=== PATIENT | male | born 1935 | race Caucasian/White ===

== ENCOUNTER 2016-11-04 08:21 | Emergency (ER) | payer MEDICARE, BC ==
[2016-11-04 08:31] VITALS: BP 164/93; PULSE 69; RESP 18; TEMP 98
[2016-11-04] MEDS ORDERED: HYDROcodone/APAP 5-325MG 1 EACH TAB PO STA (08:39)
--- NOTE | 2016-11-04 08:47 | ED ---
Extremity Problem HPI - General Chief complaint: Extremity Problem,Nontraumatic Stated complaint: toenail pain Time Seen by Provider: 11/04/16 08:32 Source: patient Mode of arrival: ambulatory Limitations: no limitations - History of Present Illness Initial comments: 81-year-old male presents emergency Department with chief complaint of left foot , toe pain. Patient states that he woke up yesterday with her worse today. Patient states it's red and swollen. Patient denies any fever, chills. Denies any trauma. Patient states he's had similar symptoms like the past but on away. Patient believes he has gout. Patient also states that his nail are having overgrowth. Patient states that he needs to see someone for this. Patient denies any other complaints. Patient denies kidney dysfunction. - Related Data Home Medications Medication Instructions Recorded Confirmed Citalopram Hydrobromide [CeleXA] 10 mg PO DAILY 03/27/16 11/04/16 Previous Rx's Medication Instructions Recorded Lisinopril [Zestril] 10 mg PO DAILY #30 tab 02/16/15 Lisinopril [Zestril] 5 mg PO DAILY #14 tab 08/24/16 Colchicine [Colcrys] 0 mg PO DIRECTED #3 tablet 11/04/16 Hydrocodone/Acetaminophen [[place] 1 tab PO Q6HR PRN #15 tab 11/04/16 5-325] Indomethacin [Indocin] 50 mg PO TID PRN #30 capsule 11/04/16 Allergies Allergy/AdvReac Type Severity Reaction Status Date / Time No Known Allergies Allergy Verified 11/04/16 08:31 Review of Systems ROS Statement: Those systems with pertinent positive or pertinent negative responses have been documented in the HPI. ROS Other: All systems not noted in ROS Statement are negative. Past Medical History Past Medical History: Hyperlipidemia, Renal Disease History of Any Multi-Drug Resistant Organisms: None Reported Past Surgical History: No Surgical Hx Reported Past Psychological History: No Psychological Hx Reported Smoking Status: Never smoker Past Alcohol Use History: None Reported Past Drug Use History: None Reported General Exam Limitations: no limitations General appearance: alert, in no apparent distress Head exam: Present: atraumatic, normocephalic, normal inspection Respiratory exam: Present: normal lung sounds bilaterally. Absent: respiratory distress, wheezes, rales, rhonchi, stridor Cardiovascular Exam: Present: regular rate, normal rhythm, normal heart sounds. Absent: systolic murmur, diastolic murmur, rubs, gallop, clicks Extremities exam: Present: other (There is overgrowth of the nail noted consistent with onychomycosis on the first digit of both feet, there is mild erythema at the first MTP with tenderness no other rashes.) Course Vital Signs 11/04/16 08:27 Temperature 98 F Pulse Rate 69 Respiratory 18 Rate Blood Pressure 164/93 O2 Sat by Pulse 98 Oximetry Medical Decision Making - Medical Decision Making 9-year-old male presented for foot pain. Patient has classic gout. Patient has had a rhythm past. Patient also has onychomycosis. Patient referred to podiatry for this. Disposition Clinical Impression: Gout, Onychomycosis Disposition: HOME SELF-CARE Condition: Stable Instructions: Gout (ED), Low Purine Diet (ED) Additional Instructions: Please return to the Emergency Department if symptoms worsen or any other concerns. Prescriptions: Colchicine [Colcrys] 0 mg PO DIRECTED #3 tablet Hydrocodone/Acetaminophen [[place] 5-325] 1 tab PO Q6HR PRN #15 tab PRN Reason: Pain Indomethacin [Indocin] 50 mg PO TID PRN #30 capsule PRN Reason: Pain Referrals: Ash Manrique MD [Primary Care Provider] - 1-2 days Mitch Lucas MD [REFERRING] - 1-2 days Phong Luna DPM [STAFF PHYSICIAN] - 1-2 days Time of Disposition: 08:46
== END 2016-11-04 09:10 | disposition home or self-care (01) ==
LOC: EC 08:21
DX: M10.9 Gout, unspecified (principal); B35.1 Tinea unguium; E78.5 Hyperlipidemia, unspecified; Z79.899 Other long term (current) drug therapy
CPT/HCPCS: 99282

== ENCOUNTER 2021-06-23 12:10 | Inpatient (IN) | payer MEDICARE, BC ==
[2021-06-23] MEDS ORDERED: NITROGLYCERIN OINT 1 INCH/GM PACKET TOPICAL STA (12:43)
[2021-06-23] MEDS ORDERED: ASPIRIN 81 MG PO STA (12:43)
--- NOTE | 2021-06-23 12:57 | ED ---
General Adult HPI - General Chief complaint: Chest Pain Stated complaint: abn EKG Time Seen by Provider: 06/23/21 12:30 Source: patient, RN notes reviewed, old records reviewed Mode of arrival: ambulatory Limitations: no limitations - History of Present Illness Initial comments: This is a 86-year-old male who presents emergency Department complaining of a weird sensation in his chest on the left side. Patient states been ongoing intermittently for a week. Patient denies any difficulty breathing shortness of breath per patient denies any diaphoretic episodes. Patient denies any lightheadedness or dizziness. Patient states he's a little more tired when he walks around. Patient denies any abdominal pain patient denies nausea vomiting diarrhea. Patient denies any swelling to legs or calf tenderness. Patient went to the primary medical care doctor's office they sent him in the emergency department. - Related Data Home Medications Medication Instructions Recorded Confirmed Atorvastatin [Lipitor] 20 mg PO HS 06/23/21 06/23/21 Citalopram Hydrobromide [CeleXA] 20 mg PO DAILY 06/23/21 06/23/21 Tamsulosin [Flomax] 0.4 mg PO HS 06/23/21 06/23/21 lisinopriL 20 mg PO HS 06/23/21 06/23/21 Allergies Allergy/AdvReac Type Severity Reaction Status Date / Time No Known Allergies Allergy Verified 06/23/21 14:12 Review of Systems ROS Statement: Those systems with pertinent positive or pertinent negative responses have been documented in the HPI. ROS Other: All systems not noted in ROS Statement are negative. Past Medical History Past Medical History: Hyperlipidemia, Renal Disease History of Any Multi-Drug Resistant Organisms: None Reported Past Surgical History: No Surgical Hx Reported Past Psychological History: No Psychological Hx Reported Smoking Status: Former smoker Past Alcohol Use History: Occasional Past Drug Use History: None Reported General Exam - General Exam Comments Initial Comments: GENERAL: Patient is well-developed and well-nourished. Patient is nontoxic and well- hydrated and is in mild distress. ENT: Neck is soft and supple. No significant lymphadenopathy is noted. Oropharynx is clear. Moist mucous membranes. Neck has full range of motion without eliciting any pain. EYES: The sclera were anicteric and conjunctiva were pink and moist. Extraocular movements were intact and pupils were equal round and reactive to light. Eyelids were unremarkable. PULMONARY: Unlabored respirations. Good breath sounds bilaterally. No audible rales rhonchi or wheezing was noted. CARDIOVASCULAR: Patient has no irregular heartbeat. ABDOMEN: Soft and nontender with normal bowel sounds. SKIN: Skin is clear with no lesions or rashes and otherwise unremarkable. NEUROLOGIC: Patient is alert and oriented x3. Cranial nerves II through XII are grossly intact. Motor and sensory are also intact. Normal speech, volume and content. Symmetrical smile. MUSCULOSKELETAL: Normal extremities with adequate strength and full range of motion. No lower extremity swelling or edema. No calf tenderness. LYMPHATICS: No significant lymphadenopathy is noted PSYCHIATRIC: Normal psychiatric evaluation. Limitations: no limitations Course Vital Signs 06/23/21 06/23/21 06/23/21 12:27 13:57 14:17 Temperature 97.3 F L Pulse Rate 82 53 L 90 Respiratory 18 18 17 Rate Blood Pressure 165/112 177/110 173/99 O2 Sat by Pulse 96 99 99 Oximetry Medical Decision Making - Medical Decision Making EKG shows atrial fibrillation 71 bpm QRS is 80 QT interval 378 QTC is 410. Patient's EKG shows no ST segment elevation. Patient has Q waves in 3 and aVF. Patient has some inverted T waves in precordial leads V2 through the V6 Chest x-ray shows no acute normalities. Patient received 10 of hydralazine for high blood pressure. I started the patient heparin for the new onset A. fib. - Lab Data Result diagrams: 06/23/21 13:27 06/23/21 13:27 Lab Results 06/23/21 06/23/21 06/23/21 Range/Units 13:27 13:27 13:27 WBC 6.0 (3.8-10.6) k/uL RBC 4.24 L (4.30-5.90) m/uL Hgb 14.7 (13.0-17.5) gm/dL Hct 41.2 (39.0-53.0) % MCV 97.2 (80.0-100.0) fL MCH 34.5 (25.0-35.0) pg MCHC 35.5 (31.0-37.0) g/dL RDW 13.4 (11.5-15.5) % Plt Count 211 (150-450) k/uL MPV 7.4 Neutrophils % 60 % Lymphocytes % 28 % Monocytes % 6 % Eosinophils % 3 % Basophils % 0 % Neutrophils # 3.6 (1.3-7.7) k/uL Lymphocytes # 1.7 (1.0-4.8) k/uL Monocytes # 0.3 (0-1.0) k/uL Eosinophils # 0.2 (0-0.7) k/uL Basophils # 0.0 (0-0.2) k/uL PT 12.0 (9.0-12.0) sec INR 1.2 H (<1.2) APTT 24.4 (22.0-30.0) sec Sodium 142 (137-145) mmol/L Potassium 4.5 (3.5-5.1) mmol/L Chloride 111 H (98-107) mmol/L Carbon Dioxide 23 (22-30) mmol/L Anion Gap 8 mmol/L BUN 26 H (9-20) mg/dL Creatinine 1.42 H (0.66-1.25) mg/dL Est GFR (CKD-EPI)AfAm 52 (>60 ml/min/1.73 sqM) Est GFR (CKD-EPI)NonAf 45 (>60 ml/min/1.73 sqM) Glucose 98 (74-99) mg/dL Calcium 9.5 (8.4-10.2) mg/dL Magnesium 1.9 (1.6-2.3) mg/dL Total Bilirubin 0.8 (0.2-1.3) mg/dL AST 25 (17-59) U/L ALT 21 (4-49) U/L Alkaline Phosphatase 89 (38-126) U/L Troponin I (0.000-0.034) ng/mL Total Protein 6.8 (6.3-8.2) g/dL Albumin 3.9 (3.5-5.0) g/dL Coronavirus (PCR) (Not Detectd) 06/23/21 06/23/21 Range/Units 13:27 13:27 WBC (3.8-10.6) k/uL RBC (4.30-5.90) m/uL Hgb (13.0-17.5) gm/dL Hct (39.0-53.0) % MCV (80.0-100.0) fL MCH (25.0-35.0) pg MCHC (31.0-37.0) g/dL RDW (11.5-15.5) % Plt Count (150-450) k/uL MPV Neutrophils % % Lymphocytes % % Monocytes % % Eosinophils % % Basophils % % Neutrophils # (1.3-7.7) k/uL Lymphocytes # (1.0-4.8) k/uL Monocytes # (0-1.0) k/uL Eosinophils # (0-0.7) k/uL Basophils # (0-0.2) k/uL PT (9.0-12.0) sec INR (<1.2) APTT (22.0-30.0) sec Sodium (137-145) mmol/L Potassium (3.5-5.1) mmol/L Chloride (98-107) mmol/L Carbon Dioxide (22-30) mmol/L Anion Gap mmol/L BUN (9-20) mg/dL Creatinine (0.66-1.25) mg/dL Est GFR (CKD-EPI)AfAm (>60 ml/min/1.73 sqM) Est GFR (CKD-EPI)NonAf (>60 ml/min/1.73 sqM) Glucose (74-99) mg/dL Calcium (8.4-10.2) mg/dL Magnesium (1.6-2.3) mg/dL Total Bilirubin (0.2-1.3) mg/dL AST (17-59) U/L ALT (4-49) U/L Alkaline Phosphatase (38-126) U/L Troponin I <0.012 (0.000-0.034) ng/mL Total Protein (6.3-8.2) g/dL Albumin (3.5-5.0) g/dL Coronavirus (PCR) Not Detected (Not Detectd) Critical Care Time Critical Care Time: Yes Total Critical Care Time: 35 Disposition Clinical Impression: Hypertensive urgency, New onset a-fib Disposition: ADMITTED IP TO THIS HOSP Referrals: Markel Anaya [Primary Care Provider] - 1-2 days Time of Disposition: 14:18
--- NOTE | 2021-06-23 13:24 | XR ---
EXAMINATION TYPE: XR chest 2V DATE OF EXAM: 06/23/2021 COMPARISON: Chest x-ray January 27, 2015 HISTORY: Chest pain. TECHNIQUE: Frontal and lateral views of the chest are obtained. FINDINGS: Elevation and eventration anterior aspect right hemidiaphragm. There is no suspicious new f ocal air space opacity, pleural effusion, or pneumothorax seen. The cardiac silhouette size is stabl e and within normal limits with atherosclerotic and ectatic aortic knob. Nonspecific right paratrach eal soft tissue thickening redemonstrated and stable. Differential includes goiter. Over six-year sta bility is consistent with benign etiology. The osseous structures are demineralized. Degenerative katelyn nge bilateral glenohumeral joints redemonstrated. IMPRESSION: Chronic changes without acute pulmonary process. No significant change from prior.
[2021-06-23 13:52] LABS: Basophils % (A) 0 %; Eosinophils # (A) 0.2 k/uL (0-0.7); Eosinophils % (A) 3 %; HCT 41.2 % (39.0-53.0); HGB 14.7 gm/dL (13.0-17.5); Lymphocytes # (A) 1.7 k/uL (1.0-4.8); Lymphocytes % (A) 28 %; MCH 34.5 pg (25.0-35.0); MCHC 35.5 g/dL (31.0-37.0); MCV 97.2 fL (80.0-100.0); Mean Platelet Volume 7.4; Monocytes # (A) 0.3 k/uL (0-1.0); Monocytes % (A) 6 %; Neutrophils # (A) 3.6 k/uL (1.3-7.7); Neutrophils % (A) 60 %; Platelet Count 211 k/uL (150-450); RBC 4.24 m/uL (4.30-5.90); RDW 13.4 % (11.5-15.5)
[2021-06-23 14:00] LABS: INR 1.2 (<1.2); Partial Thromboplastin Time 24.4 sec (22.0-30.0)
[2021-06-23 14:07] LABS: Albumin 3.9 g/dL (3.5-5.0); Calcium 9.5 mg/dL (8.4-10.2); Magnesium 1.9 mg/dL (1.6-2.3); Potassium 4.5 mmol/L (3.5-5.1); Total Bilirubin 0.8 mg/dL (0.2-1.3); Total Protein 6.8 g/dL (6.3-8.2)
[2021-06-23] MEDS ORDERED: HEPARIN SODIUM 1,000 UN/ML (10ML VL) IV ONE (14:12)
[2021-06-23] MEDS ORDERED: hydrALAZINE HCL 20 MG/ML 1 ML VIAL IVP STA (14:17)
[2021-06-23] MEDS ORDERED: NITROGLYCERIN SL TABS 0.4 MG TAB SUBLINGUAL PRN (14:20)
[2021-06-23] MEDS: HEPARIN SOD,PORK IN 0.45% NACL 25,000 UNIT in 0.45% NACL 1 250ML.BAG IV SCH (14:48)
--- NOTE | 2021-06-23 16:22 | P.HPIM ---
<Dany Chauhan - Last Filed: 06/23/21 15:53> History of Present Illness H&P Date: 06/23/21 History of Presenting Illness: Patient is an 86-year-old male with a past medical history of hypertension, hyperlipidemia, CKD and BPH. He presented to the hospital with a chief complaint of a "weird feeling" in his chest. Patient was seen and fully evaluated in the emergency department. EKG was completed revealing atrial fibrillation with a controlled ventricular rate of 71 bpm. Labs completed with CBC unremarkable, BMP consistent with stage IIIc daily with BUN 26, creatinine 1.42, and GFR 45. Liver profile unremarkable. Troponin normal findings at less than 0.012. Covid PCR negative. Chest x-ray showing chronic changes and negative for acute cardiac pulmonary process. Patient did have reported nonspecific right paratracheal soft tissue thickening redemonstrated as stable seen on previous examinations over the past 6 years reported to be consistent with benign etiology. After finding patient to be in new onset atrial fibrillation with a controlled ventricular rate. He was started on anticoagulation with heparin and is being admitted under our services with consultation to cardiology. Physical examination completed at bedside. Patient reports intermittent episodes of this weird feeling described as almost a pain/discomfort being felt to left chest intermittently throughout the past couple weeks. He states everything else has been okay and denied having any headache, lightheadedness, dizziness, palpitations, shortness of breath, abdo juanjose pain, changes in appetite, nausea, vomiting, or experiencing any numbness/tingling/weakness/swelling in his extremities. When asked about dyspnea with exertion patient initially denied however when discussed further he did report feeling much more fatigued and needing to take more breaks over the past few days and noticing difficulty when going up his basement steps and needing to sit down to take a rest and catch his breath. Patient denies ever being diagnosed with atrial fibrillation and denies having a applications analyst. Review of systems: Pertinent positives and negatives as discussed in HPI, a complete review of systems was performed and all other systems are negative. Physical exam: Vital signs reviewed and stable. General: Nontoxic, no distress and appears stated age. Derm: Skin warm and dry, normal coloration for ethnicity. Head: Atraumatic, normocephalic and symmetric. Eyes: EOMs intact, no lid lag, and anicteric sclera Mouth: no lip lesions, mucus membranes moist Cardiovascular: Irregular rhythm, no murmur or rub, positive posterior tibial pulses bilaterally, no edema and cap refill < 2 seconds. Lungs: Respirations even, regular, and unlabored on room air. Lungs CTA bilaterally, no rhonchi, no rales, no wheezing, and no accessory muscle usage. Abdominal: soft, nontender to palpation, no guarding, no appreciable organomegaly Ext: ROM intact. No gross muscle atrophy, no edema, no contractures Neuro: Speech clear, face symmetrical and CN II-XII grossly intact with no noted focal neuro deficits Psych: Alert and oriented to person, place, time, and situation. Appropriate and pleasant affect. Assessment and Plan of Care: Newly diagnosed atrial fibrillation with a controlled ventricular rate -[id number] score 2 -Continuation of heparin infusion, pharmacy to dose with plans to transition to oral anticoagulation tomorrow a.m. -Cardiology consult -Echocardiogram -Telemetry monitoring -Trend troponins -Cardiac diet -Daily aspirin and atorvastatin. Hypertension Monitor vital signs and continue daily medication regimen with lisinopril Hyperlipidemia Continue daily medication regimen with atorvastatin Cardiac diet BPH Continue daily medication regimen with Flomax CKD stage III, stable -BMP consistent with stage IIIc daily with BUN 26, creatinine 1.42, and GFR 45. Baseline creatinine 1.5. The patient is admitted with an anticipated greater than 2 midnight stay for evaluation of new onset atrial fibrillation CODE STATUS: Full code DVT prophylaxis: Heparin Discussed with: Patient Anticipated discharge date: Likely 1-[address]: Home A total of 45 minutes was spent on the care of this complex patient more than 50% of the time was spent in counseling and care coordination. Past Medical History Past Medical History: Hyperlipidemia, Renal Disease History of Any Multi-Drug Resistant Organisms: None Reported Past Surgical History: No Surgical Hx Reported Past Psychological History: No Psychological Hx Reported Smoking Status: Former smoker Past Alcohol Use History: Occasional Past Drug Use History: None Reported Medications and Allergies Home Medications Medication Instructions Recorded Confirmed Type Atorvastatin [Lipitor] 20 mg PO HS 06/23/21 06/23/21 History Citalopram Hydrobromide [CeleXA] 20 mg PO DAILY 06/23/21 06/23/21 History Tamsulosin [Flomax] 0.4 mg PO HS 06/23/21 06/23/21 History lisinopriL 20 mg PO HS 06/23/21 06/23/21 History Apixaban [Eliquis Starter Pack 5 - 10 mg PO DIRECTED 30 Days 06/24/21 Rx (for VTE)] #1 each Allergies Allergy/AdvReac Type Severity Reaction Status Date / Time No Known Allergies Allergy Verified 06/23/21 14:12 Physical Exam Vitals: Vital Signs Temp Pulse Resp BP Pulse Ox 06/23/21 14:52 92 18 123/104 99 06/23/21 14:17 90 17 173/99 99 06/23/21 13:57 53 L 18 177/110 99 06/23/21 12:27 97.3 F L 82 18 165/112 96 Intake and Output 06/23/21 06/23/21 06/23/21 06:59 14:59 22:59 Other: Weight 90.718 kg Results CBC & Chem 7: 06/23/21 13:27 06/23/21 13:27 Labs: Abnormal Lab Results - Last 24 Hours (Table) 06/23/21 06/23/21 06/23/21 Range/Units 13:27 13:27 13:27 RBC 4.24 L (4.30-5.90) m/uL INR 1.2 H (<1.2) Chloride 111 H (98-107) mmol/L BUN 26 H (9-20) mg/dL Creatinine 1.42 H (0.66-1.25) mg/dL <Dayton Chase - Last Filed: 06/24/21 15:12> Physical Exam Osteopathic Statement: *. No significant issues noted on an osteopathic structural exam other than those noted in the History and Physical/Consult. Vitals: Vital Signs Temp Pulse Resp BP Pulse Ox 06/24/21 14:25 67 20 143/67 97 06/24/21 11:21 67 20 141/90 06/24/21 11:00 77 18 98 06/24/21 10:00 62 18 98 06/24/21 09:00 75 18 98 06/24/21 08:00 97.5 F L 75 20 149/92 98 06/24/21 02:57 97.5 F L 66 20 160/92 98 06/23/21 21:38 59 L 18 130/85 99 06/23/21 20:56 56 L 142/84 99 06/23/21 17:46 56 L 17 134/87 97 Intake and Output 06/24/21 06/24/21 06/24/21 06:59 14:59 22:59 Intake Total 141.702 Balance 141.702 Intake: Intake, IV Titration 141.702 Amount Heparin Sod,Pork in 0.45% 141.702 NaCl 25,000 unit In 0.45 % NaCl 1 250ml.bag @ 11 UNITS/KG/HR 9.979 mls/hr IV .Q24H [facility] Rx#: [id number] Results CBC & Chem 7: 06/24/21 03:28 06/24/21 03:28 Labs: Abnormal Lab Results - Last 24 Hours (Table) 06/23/21 06/24/21 06/24/21 Range/Units 20:59 03:28 03:28 RBC 3.87 L (4.30-5.90) m/uL Hct 38.1 L (39.0-53.0) % PT 12.8 H (9.0-12.0) sec INR 1.2 H (<1.2) APTT (22.0-30.0) sec Chloride 113 H (98-107) mmol/L Carbon Dioxide 20 L (22-30) mmol/L BUN 22 H (9-20) mg/dL Creatinine 1.37 H (0.66-1.25) mg/dL 06/24/21 06/24/21 Range/Units 03:28 11:33 RBC (4.30-5.90) m/uL Hct (39.0-53.0) % PT (9.0-12.0) sec INR (<1.2) APTT 38.4 H 31.0 H (22.0-30.0) sec Chloride (98-107) mmol/L Carbon Dioxide (22-30) mmol/L BUN (9-20) mg/dL Creatinine (0.66-1.25) mg/dL Assessment and Plan Assessment: Patient seen and examined independently. Patient was also seen by Dany Chauhan NP and case was discussed. I am in agreement with subjective, physical exam, a ssessment and plan as written above and amended below. General: Patient awake alert and oriented x 3. No acute distress. HEENT: Sclerae are clear. Pupils equal, round and reactive to light bilaterally. No cervical adenopathy. No pharyngeal erythema or exudate. No thyromegaly. Lymphatic: No anterior cervical adenopathy. Chest: irregularly irregular, normal rate, positive S1 and S2. No S3. No S4. No clicks, rubs or murmurs. Lungs: Clear to auscultation bilaterally. No wheezes rales or rhonchi. Respirations even and nonlabored. Abdomen/GI: Bowel sounds present in all 4 quadrants. Bowel sounds normoactive. No abdominal tenderness. No mass. No hepatomegaly or splenomegaly. No bruits. : Musculoskeletal/ Extremities: No tenderness on muscular exam. No ecchymosis. Vascular: Radial pulses equal. 2/4. Skin: No rash. Neurologic: Awake, alert and oriented times 3. No lateralizing deficits noted on gross inspection. # New onset Afib -CHADSVasc score of 2 -transition from Heparin drip to Eliquis -rate has been controlled so far, consider beta gibson if needed -f/u on 2D Echo, TSH -stop aspirin unless there is an indication for dual therapy (1) New onset a-fib Current Visit: Yes Status: Acute Priority: High Code(s): I48.91 - UNSPECIFIED ATRIAL FIBRILLATION SNOMED Code(s): 78223423 Time with Patient: Less than 30
--- NOTE | 2021-06-23 17:02 | ECHOF ---
Referral Reason:new onset atrial fib MEASUREMENTS -------- HEIGHT: 175.3 cm WEIGHT: 90.7 kg BP: 157/82 IVSd: 1.2 cm (0.6 - 1.1) LVIDd: 4.1 cm (3.9 - 5.3) LVPWd: 1.1 cm (0.6 - 1.1) IVSs: 1.3 cm LVIDs: 1.9 cm LVPWs: 1.5 cm MV E Willie: 0.74 m/s MV DecT: 199 ms MV A Willie: 0.90 m/s MV E/A Ratio: 0.82 AR PHT: 719 ms RAP: 5.00 mmHg RVSP: 28.61 mmHg FINDINGS -------- Sinus rhythm. This was a technically difficult study with suboptimal views. The left ventricular size is normal. There is mild concentric left ventricular hypertrophy. Overa ll left ventricular systolic function is normal with, an EF between 55 - 60 %. The RV was not well visualized. The left atrium is mildly dilated. The right atrium was not well visualized. xx ml of Lumason was utilized for enhancement of images. Interatrial and interventricular septum intact. There is mild aortic regurgitation. There is no evidence of aortic stenosis. There is trace to mild mitral regurgitation. Mild tricuspid regurgitation present. There is no evidence of pulmonary hypertension. The right v entricular systolic pressure, as measured by Doppler, is 28.61mmHg. The pulmonic valve was not well visualized. The aortic root size is normal. IVC Not well visulized. There is no pericardial effusion. CONCLUSIONS -------- 1. The left ventricular size is normal. 2. There is mild concentric left ventricular hypertrophy. 3. Overall left ventricular systolic function is normal with, an EF between 55 - 60 %. 4. The left atrium is mildly dilated. 5. There is mild aortic regurgitation. 6. There is trace to mild mitral regurgitation. 7. Mild tricuspid regurgitation present. VP SALES: Genna Hester ONOFRE
[2021-06-23 21:16] LABS: INR 1.2 (<1.2); Prothrombin Time 12.8 sec (9.0-12.0)
[2021-06-23] MEDS: ATORVASTATIN 20 MG TAB PO SCH (21:36)
[2021-06-23] MEDS: TAMSULOSIN 0.4 MG CAP.ER.24H PO SCH (21:37)
[2021-06-23] MEDS: lisinopriL 20 MG TAB PO SCH (21:37)
[2021-06-24 04:05] LABS: HCT 38.1 % (39.0-53.0); HGB 13.2 gm/dL (13.0-17.5); MCH 34.2 pg (25.0-35.0); MCHC 34.8 g/dL (31.0-37.0); MCV 98.3 fL (80.0-100.0); Mean Platelet Volume 7.5; Platelet Count 184 k/uL (150-450); RBC 3.87 m/uL (4.30-5.90); RDW 13.6 % (11.5-15.5); WBC 6.2 k/uL (3.8-10.6)
[2021-06-24 04:27] LABS: Calcium 9.1 mg/dL (8.4-10.2); Potassium 4.1 mmol/L (3.5-5.1)
[2021-06-24] MEDS ORDERED: HEPARIN SODIUM 1,000 UN/ML (10ML VL) IV PRN (04:46)
[2021-06-24] MEDS: CITALOPRAM HYDROBROMIDE 20 MG TAB PO SCH (08:45)
[2021-06-24] MEDS ORDERED: ASPIRIN 325 MG TAB PO SCH (09:00)
[2021-06-24 11:15] LABS: Chol/HDL Ratio 2.44 Ratio; HDL Cholesterol 52.1 mg/dL (40.00-60.00); LDL Cholesterol,Calculated 56.9 mg/dL (0.0-131.0); Triglycerides 89.9 mg/dL (0.00-149.00); VLDL Calculation 17.98 mg/dL (5.00-40.00)
--- NOTE | 2021-06-24 14:47 | P.PN ---
Subjective Progress Note Date: 06/24/21 History of Presenting Illness: Patient is an 86-year-old male with a past medical history of hypertension, hyperlipidemia, CKD and BPH. He presented to the hospital with a chief complaint of a "weird feeling" in his chest. Patient was seen and fully evaluated in the emergency department. EKG was completed revealing atrial fibrillation with a controlled ventricular rate of 71 bpm. Labs completed with CBC unremarkable, BMP consistent with stage IIIc daily with BUN 26, creatinine 1.42, and GFR 45. Liver profile unremarkable. Troponin normal findings at less than 0.012. Covid PCR negative. Chest x-ray showing chronic changes and neg ative for acute cardiac pulmonary process. Patient did have reported nonspecific right paratracheal soft tissue thickening redemonstrated as stable seen on previous examinations over the past 6 years reported to be consistent with benign etiology. After finding patient to be in new onset atrial fi brillation with a controlled ventricular rate. He was started on anticoagulation with heparin and is being admitted under our services with consultation to cardiology. Patient denied ever being diagnosed with atrial fibrillation and denied having a hospital superintendent. Physical exam: Patient seen and fully evaluated at the bedside this morning. He was resting comfortably. He denied having any complaints of chest pain, shortness of ajith ath, dizziness, lightheadedness, headache, nausea, vomiting, or experiencing any numbness/tingling/weakness of extremities. He remains in atrial fibrillation with a controlled ventricular rate. Echocardiogram completed showing normal EF between 55 and 60% with no significant valvular abnormalities. Patient transitioned over to oral anticoagulation with Eliquis. Prescription sent to pharmacy for pricing. Vital signs reviewed and stable. General: Nontoxic, no distress and appears stated age. Derm: Skin warm and dry, normal coloration for ethnicity. Head: Atraumatic, normocephalic and symmetric. Eyes: EOMs intact, no lid lag, and anicteric sclera Mouth: no lip lesions, mucus membranes moist Cardiovascular: Irregular rhythm, no murmur or rub, positive posterior tibial pulses bilaterally, no edema and cap refill < 2 seconds. Lungs: Respirations even, regular, and unlabored on room air. Lungs CTA bilaterally, no rhonchi, no rales, no wheezing, and no accessory muscle usage. Abdominal: soft, nontender to palpation, no guarding, no appreciable organomegaly Ext: ROM intact. No gross muscle atrophy, no edema, no contractures Neuro: Speech clear, face symmetrical and CN II-XII grossly intact with no noted focal neuro deficits Psych: Alert and oriented to person, place, time, and situation. Appropriate and pleasant affect. Assessment and Plan of Care: Newly diagnosed atrial fibrillation with a controlled ventricular rate Atypical chest pain -[id number] score 2 -Echocardiogram completed showing normal EF between 55 and 60% with no significant valvular abnormalities. -Heparin discontinued and Patient transitioned over to oral anticoagulation with Eliquis -Cardiology consulted, appreciate recommendations -Telemetry monitoring -Troponin negative. -Cardiac diet -Daily aspirin and atorvastatin. -Lipid profile normal findings. Hypertension Monitor vital signs and continue daily medication regimen with lisinopril Hyperlipidemia Continue daily medication regimen with atorvastatin Cardiac diet BPH Continue daily medication regimen with Flomax CKD stage III, stable CODE STATUS: Full code DVT prophylaxis: Devyn Discussed with: Patient Anticipated discharge date: Likely tomorrow, pending cardiology recommendations. Anticipated discharge place: Home A total of 45 minutes was spent on the care of this complex patient more than 50% of the time was spent in counseling and care coordination. Objective - Vital Signs Vital signs: Vital Signs Temp 97.5 F L 06/24/21 08:00 Pulse 67 06/24/21 11:21 Resp 20 06/24/21 11:21 BP 141/90 06/24/21 11:21 Pulse Ox 98 06/24/21 11:00 Intake & Output 06/23/21 06/24/21 06/24/21 18:59 06:59 18:59 Intake Total 141.702 Balance 141.702 Weight 90.718 kg Intake: Intake, IV Titration 141.702 Amount Heparin Sod,Pork in 0.45% 141.702 NaCl 25,000 unit In 0.45 % NaCl 1 250ml.bag @ 11 UNITS/KG/HR 9.979 mls/hr IV .Q24H CHRISTO Rx#: [id number] - Labs CBC & Chem 7: 06/24/21 03:28 06/24/21 03:28 Labs: Abnormal Lab Results - Last 24 Hours (Table) 06/23/21 06/23/21 06/23/21 Range/Units 13:27 13:27 13:27 RBC 4.24 L (4.30-5.90) m/uL Hct (39.0-53.0) % PT (9.0-12.0) sec INR 1.2 H (<1.2) APTT (22.0-30.0) sec Chloride 111 H (98-107) mmol/L Carbon Dioxide (22-30) mmol/L BUN 26 H (9-20) mg/dL Creatinine 1.42 H (0.66-1.25) mg/dL 06/23/21 06/24/21 06/24/21 Range/Units 20:59 03:28 03:28 RBC 3.87 L (4.30-5.90) m/uL Hct 38.1 L (39.0-53.0) % PT 12.8 H (9.0-12.0) sec INR 1.2 H (<1.2) APTT (22.0-30.0) sec Chloride 113 H (98-107) mmol/L Carbon Dioxide 20 L (22-30) mmol/L BUN 22 H (9-20) mg/dL Creatinine 1.37 H (0.66-1.25) mg/dL 06/24/21 06/24/21 Range/Units 03:28 11:33 RBC (4.30-5.90) m/uL Hct (39.0-53.0) % PT (9.0-12.0) sec INR (<1.2) APTT 38.4 H 31.0 H (22.0-30.0) sec Chloride (98-107) mmol/L Carbon Dioxide (22-30) mmol/L BUN (9-20) mg/dL Creatinine (0.66-1.25) mg/dL
[2021-06-24] MEDS: HEPARIN SOD,PORK IN 0.45% NACL 25,000 UNIT in 0.45% NACL 1 250ML.BAG IV SCH (16:22)
--- NOTE | 2021-06-24 18:42 | CONS ---
CONSULTATION HISTORY: Ermelinda is an 86-year-old elderly gentleman who has been admitted to the hospital with what seems to be a new onset atrial fibrillation. Apparently, he felt very uncomfortable feeling in the left side of his chest, had a burning feeling and annoying sensation and that brought him to the hospital. This has since resolved. He has hypertension, benign prostatic hypertrophy and hyperlipidemia. He also has what seems to be a new onset atrial fibrillation. On arrival EKG revealed atrial fib with a controlled rate and subsequently he has converted to sinus rhythm and goes back and forth. Echo performed yesterday evening revealed normal LV size and systolic function without any significant pulmonary hypertension. Patient is resting comfortably without symptoms. His 2 sets of troponins are normal. His thyroid functions are also within normal limits. He is currently on heparin. PAST MEDICAL HISTORY: Remarkable for hypertension, history of some mild CKD. He has no known drug allergies. MEDICATIONS: Include atorvastatin 20 mg daily, Flomax 0.4 mg daily, lisinopril 20 mg daily, and Celexa. On arrival, patient was hypertensive, but his blood pressure has settled down. He did receive intravenous hydralazine to help control the blood pressure. He is resting comfortably without symptoms. He is in and out of atrial fibrillation but the rate is well controlled. PHYSICAL EXAMINATION: On examination, blood pressure is 140/70 pulse rate is 70 per minute, regular, regular. HEENT unremarkable. Fundus was not examined by me. Neck is supple. There is no JVD. I do not hear a carotid bruit. Heart exam reveals S1, S2 heard normally. There is a short systolic murmur. There is some irregular rhythm. Lungs reveal bilateral decent air entry. Abdomen is soft, nontender. Lower extremities reveal diminished pulses. Central nervous system grossly within normal limits. EKG on arrival revealed atrial fibrillation with controlled ventricular rate, nonspecific ST changes. Subsequently went into sinus rhythm and is going back and forth, but rate is controlled. LAB DATA: Suggests troponins are unremarkable. TSH is normal. D-dimer is normal. IMPRESSION: 1. New onset atrial fibrillation with a controlled ventricular rate. 2. Hypertension. 3. Atypical chest pain. 4. No evidence to suggest any acute myocardial ischemia. 5. Hyperlipidemia. RECOMMENDATIONS: I am recommending Lopressor 12.5 mg b.i.d., Eliquis 5 mg b.i.d., discontinue aspirin. His renal function appears to be fairly acceptable at 1.37. We will consider reducing the dose to 2.5 mg after rechecking renal function, patient is 86 years of age. I discussed my thoughts in detail with the patient, his and son. Thank you very much for the consult. ALIX / PAMELA: [id number] /
[2021-06-24] MEDS: APIXABAN 2.5 MG TABLET PO SCH (19:40)
[2021-06-24] MEDS: ATORVASTATIN 20 MG TAB PO SCH (19:40)
[2021-06-24] MEDS: TAMSULOSIN 0.4 MG CAP.ER.24H PO SCH (19:40)
[2021-06-24] MEDS: lisinopriL 20 MG TAB PO SCH (19:40)
[2021-06-24] MEDS ORDERED: MELATONIN 5 MG TABLET PO PRN (20:44)
[2021-06-24] MEDS ORDERED: APIXABAN 5 MG TAB PO SCH (21:00)
[2021-06-24] MEDS ORDERED: METOPROLOL TARTRATE 12.5 MG TAB PO SCH (21:00)
[2021-06-25 07:22] LABS: HCT 40.2 % (39.0-53.0); HGB 13.5 gm/dL (13.0-17.5); MCHC 33.6 g/dL (31.0-37.0); MCV 98.4 fL (80.0-100.0); Platelet Count 178 k/uL (150-450); RBC 4.09 m/uL (4.30-5.90); RDW 12.9 % (11.5-15.5); WBC 5.9 k/uL (3.8-10.6)
[2021-06-25] MEDS: APIXABAN 2.5 MG TABLET PO SCH (07:47)
[2021-06-25] MEDS: CITALOPRAM HYDROBROMIDE 20 MG TAB PO SCH (07:47)
[2021-06-25 07:52] LABS: Calcium 9.5 mg/dL (8.4-10.2); Magnesium 1.8 mg/dL (1.6-2.3); Potassium 4.2 mmol/L (3.5-5.1)
[2021-06-25 07:54] VITALS: BP 124/76; PULSE 76; RESP 18; TEMP 97.5
[2021-06-25] MEDS ORDERED: METOPROLOL TARTRATE 25 MG TAB PO SCH (09:00)
[2021-06-25] MEDS ORDERED: amLODIPine 5 MG TAB PO SCH (09:00)
--- NOTE | 2021-06-25 11:21 | P.DS ---
Providers Date of admission: 06/23/21 14:21 Expected date of discharge: 06/25/21 Attending physician: Dayton Chase MD Consults: 06/23/21 14:21 Consult Physician Urgent Consulting Provider: [facility] Consult Reason/Comments: New-onset A. fib Do you want consulting provider notified?: Yes Primary care physician: Markel [facility] Hospital Course: Discharge Diagnosis: Newly diagnosed atrial fibrillation with a controlled ventricular rate Atypical chest pain, acute coronary event ruled out Hypertension Hyperlipidemia BPH CKD stage III, stable Hospital Course: Patient is an 86-year-old male with a past medical history of hypertension, hyperlipidemia, CKD and BPH. He presented to the hospital with a chief complaint of a "weird feeling" in his chest. Patient was seen and fully evaluated in the emergency department. EKG was completed revealing atrial fibrillation with a controlled ventricular rate of 71 bpm. Labs completed with CBC unremarkable, BMP consistent with stage IIIc daily with BUN 26, creatinine 1.42, and GFR 45. Liver profile unremarkable. Initial Troponin normal findings at less than 0.012. Covid PCR negative. Chest x-ray showing chronic changes and negative for acute cardiac pulmonary process. Patient did have reported nonspecific right paratracheal soft tissue thickening redemonstrated as stable seen on previous examinations over the past 6 years reported to be consistent with benign etiology. After finding patient to be in new onset atrial fibrillation with a controlled ventricular rate. He was started on anticoagulation with heparin and is being admitted under our services with consultation to cardiology. Initially patient with elevated pressure upon arrival and was given a one-time dose of hydralazine and started on daily amlodipine 5 mg daily in addition to resuming his daily medication management with lisinopril 20 mg nightly.Patient denied ever being diagnosed with atrial fibrillation and denied having a offset duplicating machine operator. Echocardiogram completed showing normal EF between 55 and 60% with no significant valvular abnormalities. Troponins further trended and remained negative 3 draws. Lipid profile unremarkable. Acute coronary event was ruled out. Heparin discontinued and patient was transitioned over to oral anticoagulation with Eliquis. Patient seen and evaluated by cardiology who recommended adding metoprolol 12.5 mg twice daily to patient's daily medication regimen. Patient is medically stable for discharge home at this time. Patient being discharged home on amlodipine, metoprolol, and Eliquis in addition to his daily atorvastatin and lisinopril. Patient instructed to follow-up with his primary care provider in 2 days and with cardiology in 1 week. Patient was instructed to call his primary care provider, offset duplicating machine operator, or return to the emergency department immediately if he develops any chest pains, pressure, palpitations, or shortness of breath. Patient medically stable for discharge at this time. Physical exam: Patient seen and fully evaluated at the bedside this morning. He was resting comfortably. He denied having any complaints of chest pain, shortness of breath, dizziness, lightheadedness, headache, nausea, vomiting, or experiencing any numbness/tingling/weakness of extremities. He reports feeling great and ready to go home. Vital signs reviewed and stable. General: Nontoxic, no distress and appears stated age. Derm: Skin warm and dry, normal coloration for ethnicity. Head: Atraumatic, normocephalic and symmetric. Eyes: EOMs intact, no lid lag, and anicteric sclera Mouth: no lip lesions, mucus membranes moist Cardiovascular: Irregular rhythm, no murmur or rub, positive posterior tibial pulses bilaterally, no edema and cap refill < 2 seconds. Lungs: Respirations even, regular, and unlabored on room air. Lungs CTA bilaterally, no rhonchi, no rales, no wheezing, and no accessory muscle usage. Abdominal: soft, nontender to palpation, no guarding, no appreciable organomegaly Ext: ROM intact. No gross muscle atrophy, no edema, no contractures Neuro: Speech clear, face symmetrical and CN II-XII grossly intact with no noted focal neuro deficits Psych: Alert and oriented to person, place, time, and situation. Appropriate and pleasant affect. A total of 45 minutes of time were spent preparing this complex discharge summary. Patient Condition at Discharge: Stable Plan - Discharge Summary Discharge Rx Participant: No New Discharge Prescriptions: New Apixaban [Eliquis Starter Pack (for VTE)] 5 - 10 mg PO DIRECTED 30 Days #1 each Metoprolol Tartrate [Lopressor] 12.5 mg PO BID 30 Days #60 tab amLODIPine [Norvasc] 5 mg PO DAILY 30 Days #30 tab Continue Citalopram Hydrobromide [CeleXA] 20 mg PO DAILY lisinopriL 20 mg PO HS Atorvastatin [Lipitor] 20 mg PO HS Tamsulosin [Flomax] 0.4 mg PO HS Discharge Medication List Atorvastatin [Lipitor] 20 mg PO HS 06/23/21 [History] Citalopram Hydrobromide [CeleXA] 20 mg PO DAILY 06/23/21 [History] Tamsulosin [Flomax] 0.4 mg PO HS 06/23/21 [History] lisinopriL 20 mg PO HS 06/23/21 [History] Apixaban [Eliquis Starter Pack (for VTE)] 5 - 10 mg PO DIRECTED 30 Days #1 each 06/25/21 [Rx] Metoprolol Tartrate [Lopressor] 12.5 mg PO BID 30 Days #60 tab 06/25/21 [Rx] amLODIPine [Norvasc] 5 mg PO DAILY 30 Days #30 tab 06/25/21 [Rx] Follow up Appointment(s)/Referral(s): Kristine Bay MD [STAFF PHYSICIAN] - 1 Week Markel Anaya [Primary Care Provider] - 1-2 days Patient Instructions/Handouts: Apixaban (By mouth), A-fib (Atrial Fibrillation) (DC), Heart Healthy Diet (DC) Activity/Diet/Wound Care/Special Instructions: Activity: As tolerated. Take breaks as needed. Diet: Heart healthy and carb consistent diet. Avoid salts, or foods with hidden salts such as canned or boxed foods and frozen dinners. Extra salt makes your heart work harder. Special Instructions: Take all of your medications as directed. And remember to keep all of your doctor's appointments and follow-up as needed. You are being discharged home on a blood thinner, Eliquis. This is very important to take daily as directed until otherwise advised by her offset duplicating machine operator, Dr. Bay. Being that you're being placed on a blood thinner it is very important to watch for any signs of blee ding and notify your doctor immediately if he notices any bleeding. It is also important to remove any trip hazards such as rugs or loose extension cords from your home to prevent unnecessary falls and if you do experience a fall or head injury, it is extremely important to be evaluated by a medical provider immediately to ensure there is no internal bleeding. It is important to avoid alcohol while taking blood thinners, as we discussed alcohol also has the potential to thin blood and creates a significant risk for falls or injuries. Call your primary care provider, offset duplicating machine operator, or return to the emergency department if you develop any chest pains, pressure, palpitations, or shortness of breath. Thank you for allowing us to participate in your care, it was truly a pleasure having you for our patient!!! Discharge Disposition: HOME SELF-CARE
--- NOTE | 2021-06-25 11:57 | PN ---
PROGRESS NOTE This gentleman was admitted yesterday with somewhat nondescript symptoms of right-sided sharp pain and then was found to be in atrial fibrillation. I placed him on a small dose of beta gibson. He is now in sinus rhythm, asymptomatic, doing well. No chest pain or shortness of breath or palpitation. Echo revealed preserved systolic function. Troponins are unremarkable. Blood pressure is slightly elevated. I am adding Norvasc 5 mg daily to his regimen. He can be discharged on 2.5 mg b.i.d. of Eliquis because of paroxysmal atrial fibrillation and also a small dose of beta gibson and lisinopril. His diagnosis is paroxysmal atrial fibrillation, hypertension, and atypical chest pain. Physical exam revealed no JVD. S1-S2 heard normally. Short systolic murmur is evident. Lungs are clear. Abdomen is soft, nontender. Lower extremities reveal normal pulses. No edema. Central nervous system grossly within normal limits. MMODL / IJN: [id number] /
== END 2021-06-25 11:02 | disposition home or self-care (01) | DRG 310 ==
LOC: EC 12:10 → 3SCARD 14:21
PROVIDERS: ADMIT Internal Medicine; ATTEND Internal Medicine
DX: I48.0 Paroxysmal atrial fibrillation (principal); R07.89 Other chest pain; I16.0 Hypertensive urgency; E78.5 Hyperlipidemia, unspecified; I12.9 Hypertensive chronic kidney disease with stage 1 through stage 4 chronic kidney disease, or unspecified chronic kidney disease; N18.30 Chronic kidney disease, stage 3 unspecified; N40.0 Benign prostatic hyperplasia without lower urinary tract symptoms; Z79.899 Other long term (current) drug therapy; Z87.891 Personal history of nicotine dependence; Z20.822 Contact with and (suspected) exposure to COVID-19
CPT/HCPCS: 36415; 71046; 80048; 80053; 80061; 83735; 83880; 84443; 84484; 85025; 85027; 85379; 85610; 85730; 87635; 93005; 93306; 99291

== ENCOUNTER 2021-10-04 17:35 | Emergency (ER) | payer BC, MEDICARE ==
[2021-10-04 18:02] VITALS: RESP 18; TEMP 98.3
[2021-10-04] MEDS ORDERED: KETOROLAC 15 MG/ML 1 ML VIAL IM STA (19:20)
--- NOTE | 2021-10-04 20:02 | US ---
EXAMINATION TYPE: US venous doppler duplex LE RT DATE OF EXAM: 10/04/2021 7:53 PM COMPARISON: US 2013 CLINICAL HISTORY: pain. SIDE PERFORMED: Right TECHNIQUE: The lower extremity deep venous system is examined utilizing real time linear array sonog arjun with graded compression, doppler sonography and color-flow sonography. VESSELS IMAGED: Common Femoral Vein Deep Femoral Vein Greater Saphenous Vein * Femoral Vein Popliteal Vein Small Saphenous Vein * Proximal Calf Veins (* superficial vessels) Right Leg: Color flow seen in all veins imaged. Possible chronic internal echoes within proximal and distal femoral vein and popliteal vein. Vein appears to compress incompletely at these levels. IMPRESSION: Incomplete compressibility of the right distal femoral through popliteal vein with possible internal echoes. 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
--- NOTE | 2021-10-04 21:41 | XR ---
Result: History: Pain. Comparison: None available. Technique: 3 views of the right foot. Findings: The bone mineralization is appropriate for age. No acute fracture or dislocation is seen. There is suggestion of pes planus on this nonweightbearing radiographs. The joint spaces are grossly preserved. Impression: No acute osseous abnormality.
--- NOTE | 2021-10-04 22:29 | ED ---
Lower Extremity Injury HPI - General Source: patient, family, RN notes reviewed Mode of arrival: wheelchair Limitations: no limitations <Agus Moreno - Last Filed: 10/04/21 22:24> <SonmarceloTamia Consuelo - Last Filed: 10/06/21 12:24> - General Chief Complaint: Extremity Injury, Lower Stated Complaint: blood clot Time Seen by Provider: 10/04/21 19:12 - History of Present Illness Initial Comments: Patient is a 89-year-old male that presents to the emergency department complaining of right lower extremity ankle pain. Patient notes he did sprain his ankle after falling in the shower earlier in September. He notes that he followed up with [facility]. Dr. Shannon was his provider. Patient notes that he's been having continuing swelling and discomfort. Dr. Shannon was consulted and told him to come the emergency room for evaluation for possible DVT. Patient was otherwise well-appearing in no apparent distress. No didn't that his pain was approximate 5 out of 10 with no relief. Patient did have a walking boot on at this time. He denied any chest pain shortness of breath headache nausea vomiting diarrhea constipation fever fatigue chills history of clotting. (Agus Moreno) - Related Data Home Medications Medication Instructions Recorded Confirmed Atorvastatin [Lipitor] 20 mg PO HS 06/23/21 06/23/21 Citalopram Hydrobromide [CeleXA] 20 mg PO DAILY 06/23/21 06/23/21 Tamsulosin [Flomax] 0.4 mg PO HS 06/23/21 06/23/21 lisinopriL [Prinivil] 20 mg PO HS 06/23/21 06/23/21 Previous Rx's Medication Instructions Recorded Apixaban [Eliquis Starter Pack 5 - 10 mg PO DIRECTED 30 Days 06/25/21 (for VTE)] #1 each Metoprolol Tartrate [Lopressor] 12.5 mg PO BID 30 Days #60 tab 06/25/21 amLODIPine [Norvasc] 5 mg PO DAILY 30 Days #30 tab 06/25/21 Allergies Allergy/AdvReac Type Severity Reaction Status Date / Time No Known Allergies Allergy Verified 10/04/21 17:58 Review of Systems ROS Other: All systems not noted in ROS Statement are negative. <Agus Moreno - Last Filed: 10/04/21 22:24> ROS Other: All systems not noted in ROS Statement are negative. <Tamia Graff Consuelo - Last Filed: 10/06/21 12:24> ROS Statement: Those systems with pertinent positive or pertinent negative responses have been documented in the HPI. Past Medical History Past Medical History: Hyperlipidemia, Prostate Disorder, Renal Disease History of Any Multi-Drug Resistant Organisms: None Reported Past Surgical History: No Surgical Hx Reported Past Anesthesia/Blood Transfusion Reactions: No Reported Reaction Past Psychological History: No Psychological Hx Reported Smoking Status: Former smoker Past Alcohol Use History: Occasional Past Drug Use History: None Reported <Agus Moreno - Last Filed: 10/04/21 22:24> General Exam Limitations: no limitations General appearance: alert, in no apparent distress Head exam: Present: atraumatic, normocephalic, normal inspection Eye exam: Present: normal appearance, PERRL, EOMI. Absent: scleral icterus, conjunctival injection, periorbital swelling ENT exam: Present: normal exam, mucous membranes moist Neck exam: Present: normal inspection Respiratory exam: Present: normal lung sounds bilaterally. Absent: respiratory distress, wheezes, rales, rhonchi, stridor Cardiovascular Exam: Present: regular rate, normal rhythm, normal heart sounds. Absent: systolic murmur, diastolic murmur, rubs, gallop, clicks Extremities exam: Present: normal inspection, full ROM, normal capillary refill. Absent: tenderness, pedal edema, joint swelling, calf tenderness Right Ankle exam: Present: full ROM, swelling, ecchymosis. Absent: normal inspection, tenderness, abrasion, laceration, deformity Foot/Toe exam: Present: full ROM, tenderness (Over the lateral midfoot), sw elling, ecchymosis. Absent: normal inspection, abrasion, laceration, deformity, crepitus, dislocation Neurological exam: Present: alert, oriented X3 Psychiatric exam: Present: normal affect, normal mood Skin exam: Present: warm, dry, intact, normal color. Absent: rash <Agus Moreno - Last Filed: 10/04/21 22:24> Course Vital Signs 10/04/21 10/04/21 10/04/21 17:59 19:30 22:59 Temperature 98.3 F Pulse Rate 77 72 61 Respiratory 18 18 18 Rate Blood Pressure 125/70 140/100 125/94 O2 Sat by Pulse 98 95 96 Oximetry Medical Decision Making - Radiology Data Radiology results: report reviewed, image reviewed <Agus Moreno - Last Filed: 10/04/21 22:24> <Tamia Graff - Last Filed: 10/06/21 12:24> - Medical Decision Making 86-year-old male complaining of right lower extremity foot and ankle pain. X-ray the right foot, ultrasound of the right lower extremity. X-ray negative for any acute osseous abnormality. Ultrasound shows possible chronic DVT. Dr. Marroquin was consulted and states that anticoagulation is not needed at this time but follow-up outpatient is recommended for repeat ultrasound. Case discussed with Dr. Graff. (Agus Moreno) I was available for consultation in the emergency department. The history and physical exam were done by the midlevel provider. I was consulted for this patients care. I reviewed the case with the midlevel provider and based on their presentation of the patient, I agree with the assessment, medical decision making and plan of care as documented. Chart was dictated using [employer] dictation software. Attempts were made to correct any dictation errors however some typographical errors may persist. Patient was seen during a national state of emergency due to the Covid-19 pandemic. (Tamia Graff) - Radiology Data Ultrasound right lower extremity: Incomplete compressibility of the right distal femoral through popliteal vein with possible internal echoes. Findings concerning for nonocclusive DVT probably chronic. X-ray right foot: No acute osseous abnormality. (Agus Moreno) Disposition Is patient prescribed a controlled substance at d/c from ED?: No Time of Disposition: 22:29 <Agus Moreno - Last Filed: 10/04/21 22:24> <Tamia Graff - Last Filed: 10/06/21 12:24> Clinical Impression: Right ankle swelling, Right foot pain, Right leg pain Disposition: HOME SELF-CARE Condition: Stable Instructions (If sedation given, give patient instructions): Foot Sprain (ED) Additional Instructions: Please return to the Emergency Department if symptoms worsen or any other concerns. Follow-up with vascular surgeon sometime this week or next week. Follow-up with primary care 1-2 days. Wear walking boot or any activities but may take off while resting at home. Referrals: Scarlett Valdes MD [Primary Care Provider] - 1-2 days Dani Marroquin DO [STAFF PHYSICIAN] - 1-2 days
[2021-10-04 23:01] VITALS: BP 125/94; PULSE 61
== END 2021-10-04 23:01 | disposition home or self-care (01) ==
LOC: EC 17:35
DX: M25.571 Pain in right ankle and joints of right foot (principal); R22.41 Localized swelling, mass and lump, right lower limb; E78.5 Hyperlipidemia, unspecified; Z79.01 Long term (current) use of anticoagulants; Z87.891 Personal history of nicotine dependence
CPT/HCPCS: 99284; 96372; 73630; 93971; J1885

== ENCOUNTER → 2022-06-18 | Outpatient (CLI) | payer MEDICARE ==
--- NOTE | 2022-06-18 12:29 | CA ---
Transthoracic Echo Report Name: Steven Barber Age: 87 Gender: M : 1935 Exam Date: 06/18/2022 10:19 Exam Location: [facility] Ht (in): 68 Wt (lb): 200 Ordering Physician: Donell Caraballo MD Attending/Referring Phys: Phong Luna DPM Processing Assistant Carmina Feldman RDCS Procedure CPT: Indications: R60.0 bilateral edema Cardiac Hx: Technical Quality: Fair Contrast 1: Total Dose (mL): Contrast 2: Total Dose (mL): MEASUREMENTS (Male / Female) Normal Values 2D ECHO LV Diastolic Diameter PLAX 4.8 cm 4.2 - 5.9 / 3.9 - 5.3 cm LV Systolic Diameter PLAX 3.9 cm IVS Diastolic Thickness 1.2 cm 0.6 - 1.0 / 0.6 - 0.9 cm LVPW Diastolic Thickness 1.6 cm 0.6 - 1.0 / 0.6 - 0.9 cm LV Relative Wall Thickness 0.6 LA Volume 71.0 cm??? 18 - 58 / 22 - 52 cm??? M-MODE Aortic Root Diameter MM 3.8 cm AV Cusp Separation MM 1.2 cm DOPPLER AV Peak Velocity 147.2 cm/s AV Peak Gradient 8.7 mmHg AI Peak Velocity 446.9 cm/s AI Peak Gradient 79.9 mmHg AI Pressure Half Time 452.5 ms MV Area PHT 2.9 cm??? Mitral E Point Velocity 27.6 cm/s Mitral A Point Velocity 82.6 cm/s Mitral E to A Ratio 0.3 MV Deceleration Time 263.4 ms MV E' Velocity 3.5 cm/s Mitral E to MV E' Ratio 7.9 FINDINGS Left Ventricle Left ventricular ejection fraction is estimated at 50-55 %. Mildly increased left ventricular wall thickness. Right Ventricle Normal right ventricular size and function. Right Atrium Normal right atrial size. Left Atrium Moderately increased left atrial volume. Mitral Valve Structurally normal mitral valve. Mild mitral regurgitation. Aortic Valve Possible bicuspid aortic valve. Mild aortic regurgitation. Aortic valve sclerosis. Tricuspid Valve Structurally normal tricuspid valve. Mild tricuspid regurgitation. Pulmonic Valve Structurally normal pulmonic valve. Pericardium Normal pericardium. Aorta Normal size aortic root and proximal ascending aorta. CONCLUSIONS Normal left ventricular dimension and systolic function Possible bicuspid aortic valve. Mild aortic insufficiency Previewed by: Dr. Amanuel Hickman MD (Electronically Signed) Final Date: 18 June 2022 12:29
== END | disposition home or self-care (01) ==
LOC: RADECHMAIN 10:06
PROVIDERS: ATTEND Family Medicine
DX: I35.1 Nonrheumatic aortic (valve) insufficiency (principal)
CPT/HCPCS: 93306

== ENCOUNTER 2022-09-07 11:08 | Inpatient (IN) | payer MEDICARE ==
[2022-09-07] MEDS ORDERED: SODIUM CHLORIDE 0.9% 1,000 ML IV STA (11:50)
--- NOTE | 2022-09-07 11:54 | ED ---
General Adult HPI - General Chief complaint: Weakness Stated complaint: general weakness Time Seen by Provider: 09/07/22 11:25 Source: patient, EMS Mode of arrival: EMS Limitations: no limitations - History of Present Illness Initial comments: 87 year old male who has a history of hypertension, hyperlipidemia presents to the emergency room with reported generalized weakness. States it has been going on for the last 2 days. He has been sleeping on the floor because he's been too tired and weak to get up. He has had minimal oral intake. His is sick with similar symptoms. They did take a covid test at home today which was found to be positive. He denies any underlying lung conditions. Denies cardiac history. Recently has been falling with a supervisor shearing this past week and has had an echo and stress test both of which his daughter reports was negative. Denies chest pain. No abdominal pain. No fevers. Has not been taking any medi cations at home for his symptoms. Denies diarrhea. No other alleviating, precipitating or modifying factors - Related Data Home Medications Medication Instructions Recorded Confirmed Atorvastatin [Lipitor] 20 mg PO HS 06/23/21 09/07/22 Citalopram Hydrobromide [CeleXA] 20 mg PO DAILY 06/23/21 09/07/22 Tamsulosin [Flomax] 0.4 mg PO HS 06/23/21 09/07/22 lisinopriL [Prinivil] 20 mg PO HS 06/23/21 09/07/22 Metoprolol Tartrate [Lopressor] 12.5 mg PO DAILY 09/07/22 09/07/22 Rivaroxaban [Xarelto] 15 mg PO W/SUPPER 09/07/22 09/07/22 Previous Rx's Medication Instructions Recorded Albuterol Inhaler [Ventolin Hfa 2 puff INHALATION RT-QID PRN #1 inh 09/10/22 Inhaler] Benzonatate [Tessalon Perles] 200 mg PO TID PRN #30 cap 09/10/22 dexAMETHasone [Decadron] 6 mg PO DAILY #7 tablet 09/10/22 guaiFENesin [Mucinex] 600 mg PO Q12HR #20 tab 09/10/22 Allergies Allergy/AdvReac Type Severity Reaction Status Date / Time No Known Allergies Allergy Verified 09/07/22 11:25 Review of Systems ROS Statement: Those systems with pertinent positive or pertinent negative responses have been documented in the HPI. ROS Other: All systems not noted in ROS Statement are negative. Past Medical History Past Medical History: Hyperlipidemia, Prostate Disorder, Renal Disease History of Any Multi-Drug Resistant Organisms: None Reported Past Surgical History: No Surgical Hx Reported Past Anesthesia/Blood Transfusion Reactions: No Reported Reaction Past Psychological History: No Psychological Hx Reported Smoking Status: Former smoker Past Alcohol Use History: Occasional Past Drug Use History: None Reported General Exam Limitations: no limitations General appearance: alert, in no apparent distress Head exam: Present: atraumatic, normocephalic, normal inspection Eye exam: Present: normal appearance, PERRL, EOMI. Absent: scleral icterus, conjunctival injection, periorbital swelling ENT exam: Present: normal exam, mucous membranes moist Neck exam: Present: normal inspection. Absent: tenderness, meningismus, lymphadenopathy Respiratory exam: Present: other (tachypnia). Absent: respiratory distress, wheezes, rales, rhonchi, stridor Cardiovascular Exam: Present: regular rate, normal rhythm, normal heart sounds. Absent: systolic murmur, diastolic murmur, rubs, gallop, clicks GI/Abdominal exam: Present: soft, normal bowel sounds. Absent: distended, tenderness, guarding, rebound, rigid Extremities exam: Present: normal inspection, full ROM, normal capillary refill. Absent: tenderness, pedal edema, joint swelling, calf tenderness Back exam: Present: normal inspection Neurological exam: Present: alert, oriented X3, CN II-XII intact Psychiatric exam: Present: normal affect, normal mood Skin exam: Present: warm, dry, intact, normal color. Absent: rash Course Vital Signs 09/07/22 09/07/22 09/07/22 11:18 11:30 12:06 Temperature 98.4 F Pulse Rate 74 70 Respiratory 26 H 26 H 20 Rate Blood Pressure 177/99 163/92 O2 Sat by Pulse 96 100 Oximetry 09/07/22 09/07/22 09/07/22 14:53 15:51 17:50 Temperature 100.9 F H Pulse Rate 67 72 67 Respiratory 30 H 18 28 H Rate Blood Pressure 163/98 127/97 O2 Sat by Pulse 96 95 96 Oximetry 09/07/22 09/07/22 09/07/22 19:00 20:08 21:23 Temperature 100.3 F H 99.1 F Pulse Rate 67 78 Respiratory 18 20 Rate Blood Pressure 157/88 O2 Sat by Pulse 95 97 Oximetry EKG Findings - EKG Comments: EKG Findings:: EKG demonstrates sinus rhythm with a rate of 65. AR interval 141. QRS 88. QTC of 427. There is inverted T-wave and ST depression in V3 through V6. This is compared to previous EKG which is similar in morphology. EKG is interpreted by myself Medical Decision Making - Medical Decision Making Upon arrival patient is placed into a trauma 1. A thorough history and physical exam is performed. Patient does have notable wheezing. IV is established and he is started on fluid hydration. Laboratory studies were conducted and revi ewed. Troponin elevated at 0.114. Covid is detectable. Chest x-ray demonstrates no acute process. Discuss results with the patient. Recommended admission for elevated troponin. He has no hypoxia or chest pain. I did speak with Dr. Paiz who was agreeable to admit the patient. We will trend the troponin and hold heparin for now. He is started on dexamethasone and albuterol. I will consult Dr. Alvarez. Patient was agreeable to this and is awaiting a bed on the floor - Lab Data Result diagrams: 09/08/22 10:18 09/08/22 04:16 Lab Results 09/07/22 09/07/22 09/07/22 Range/Units 12:05 12:05 12:05 WBC 7.4 (3.8-10.6) k/uL RBC 4.18 L (4.30-5.90) m/uL Hgb 14.0 (13.0-17.5) gm/dL Hct 40.8 (39.0-53.0) % MCV 97.5 (80.0-100.0) fL MCH 33.5 (25.0-35.0) pg MCHC 34.3 (31.0-37.0) g/dL RDW 12.8 (11.5-15.5) % Plt Count 178 (150-450) k/uL MPV 8.1 Neutrophils % 79 % Lymphocytes % 11 % Monocytes % 9 % Eosinophils % 0 % Basophils % 1 % Neutrophils # 5.8 (1.3-7.7) k/uL Lymphocytes # 0.8 L (1.0-4.8) k/uL Monocytes # 0.6 (0-1.0) k/uL Eosinophils # 0.0 (0-0.7) k/uL Basophils # 0.0 (0-0.2) k/uL PT 12.2 H (9.0-12.0) sec INR 1.2 H (<1.2) APTT 23.1 (22.0-30.0) sec Sodium 142 (137-145) mmol/L Potassium 4.0 (3.5-5.1) mmol/L Chloride 109 H (98-107) mmol/L Carbon Dioxide 26 (22-30) mmol/L Anion Gap 7 mmol/L BUN 26 H (9-20) mg/dL Creatinine 1.38 H (0.66-1.25) mg/dL Est GFR (CKD-EPI)AfAm 53 (>60 ml/min/1.73 sqM) Est GFR (CKD-EPI)NonAf 46 (>60 ml/min/1.73 sqM) Glucose 97 (74-99) mg/dL Plasma Lactic Acid Ammon (0.7-2.0) mmol/L Calcium 8.9 (8.4-10.2) mg/dL Magnesium 1.7 (1.6-2.3) mg/dL Total Bilirubin 0.9 (0.2-1.3) mg/dL AST 37 (17-59) U/L ALT 25 (4-49) U/L Alkaline Phosphatase 87 (38-126) U/L Troponin I (0.000-0.034) ng/mL NT-Pro-B Natriuret Pep pg/mL Total Protein 7.0 (6.3-8.2) g/dL Albumin 4.1 (3.5-5.0) g/dL Influenza Type A (PCR) (Not Detectd) Influenza Type B (PCR) (Not Detectd) RSV (PCR) (Not Detectd) SARS-CoV-2 (PCR) (Not Detectd) 09/07/22 09/07/22 09/07/22 Range/Units 12:05 12:05 12:05 WBC (3.8-10.6) k/uL RBC (4.30-5.90) m/uL Hgb (13.0-17.5) gm/dL Hct (39.0-53.0) % MCV (80.0-100.0) fL MCH (25.0-35.0) pg MCHC (31.0-37.0) g/dL RDW (11.5-15.5) % Plt Count (150-450) k/uL MPV Neutrophils % % Lymphocytes % % Monocytes % % Eosinophils % % Basophils % % Neutrophils # (1.3-7.7) k/uL Lymphocytes # (1.0-4.8) k/uL Monocytes # (0-1.0) k/uL Eosinophils # (0-0.7) k/uL Basophils # (0-0.2) k/uL PT (9.0-12.0) sec INR (<1.2) APTT (22.0-30.0) sec Sodium (137-145) mmol/L Potassium (3.5-5.1) mmol/L Chloride (98-107) mmol/L Carbon Dioxide (22-30) mmol/L Anion Gap mmol/L BUN (9-20) mg/dL Creatinine (0.66-1.25) mg/dL Est GFR (CKD-EPI)AfAm (>60 ml/min/1.73 sqM) Est GFR (CKD-EPI)NonAf (>60 ml/min/1.73 sqM) Glucose (74-99) mg/dL Plasma Lactic Acid Ammon 1.6 (0.7-2.0) mmol/L Calcium (8.4-10.2) mg/dL Magnesium (1.6-2.3) mg/dL Total Bilirubin (0.2-1.3) mg/dL AST (17-59) U/L ALT (4-49) U/L Alkaline Phosphatase (38-126) U/L Troponin I 0.114 H* (0.000-0.034) ng/mL NT-Pro-B Natriuret Pep 977 pg/mL Total Protein (6.3-8.2) g/dL Albumin (3.5-5.0) g/dL Influenza Type A (PCR) (Not Detectd) Influenza Type B (PCR) (Not Detectd) RSV (PCR) (Not Detectd) SARS-CoV-2 (PCR) (Not Detectd) 09/07/22 Range/Units 12:34 WBC (3.8-10.6) k/uL RBC (4.30-5.90) m/uL Hgb (13.0-17.5) gm/dL Hct (39.0-53.0) % MCV (80.0-100.0) fL MCH (25.0-35.0) pg MCHC (31.0-37.0) g/dL RDW (11.5-15.5) % Plt Count (150-450) k/uL MPV Neutrophils % % Lymphocytes % % Monocytes % % Eosinophils % % Basophils % % Neutrophils # (1.3-7.7) k/uL Lymphocytes # (1.0-4.8) k/uL Monocytes # (0-1.0) k/uL Eosinophils # (0-0.7) k/uL Basophils # (0-0.2) k/uL PT (9.0-12.0) sec INR (<1.2) APTT (22.0-30.0) sec Sodium (137-145) mmol/L Potassium (3.5-5.1) mmol/L Chloride (98-107) mmol/L Carbon Dioxide (22-30) mmol/L Anion Gap mmol/L BUN (9-20) mg/dL Creatinine (0.66-1.25) mg/dL Est GFR (CKD-EPI)AfAm (>60 ml/min/1.73 sqM) Est GFR (CKD-EPI)NonAf (>60 ml/min/1.73 sqM) Glucose (74-99) mg/dL Plasma Lactic Acid Ammon (0.7-2.0) mmol/L Calcium (8.4-10.2) mg/dL Magnesium (1.6-2.3) mg/dL Total Bilirubin (0.2-1.3) mg/dL AST (17-59) U/L ALT (4-49) U/L Alkaline Phosphatase (38-126) U/L Troponin I (0.000-0.034) ng/mL NT-Pro-B Natriuret Pep pg/mL Total Protein (6.3-8.2) g/dL Albumin (3.5-5.0) g/dL Influenza Type A (PCR) Not Detected (Not Detectd) Influenza Type B (PCR) Not Detected (Not Detectd) RSV (PCR) Not Detected (Not Detectd) SARS-CoV-2 (PCR) Detected A (Not Detectd) Disposition Clinical Impression: Generalized weakness, COVID-19, NSTEMI (non-ST elevated myocardial infarction) Disposition: ADMITTED IP TO THIS HOSP Condition: Stable Is patient prescribed a controlled substance at d/c from ED?: No Time of Disposition: 15:21 Decision to Admit Reason: Admit from EC Decision Date: 09/07/22 Decision Time: 15:21
[2022-09-07 12:30] LABS: Basophils % (A) 1 %; Eosinophils % (A) 0 %; HCT 40.8 % (39.0-53.0); Lymphocytes # (A) 0.8 k/uL (1.0-4.8); Lymphocytes % (A) 11 %; MCH 33.5 pg (25.0-35.0); MCHC 34.3 g/dL (31.0-37.0); MCV 97.5 fL (80.0-100.0); Mean Platelet Volume 8.1; Monocytes # (A) 0.6 k/uL (0-1.0); Monocytes % (A) 9 %; Neutrophils # (A) 5.8 k/uL (1.3-7.7); Neutrophils % (A) 79 %; Platelet Count 178 k/uL (150-450); RBC 4.18 m/uL (4.30-5.90); RDW 12.8 % (11.5-15.5); WBC 7.4 k/uL (3.8-10.6)
[2022-09-07 12:51] LABS: INR 1.2 (<1.2); Partial Thromboplastin Time 23.1 sec (22.0-30.0); Prothrombin Time 12.2 sec (9.0-12.0)
[2022-09-07 12:59] LABS: Albumin 4.1 g/dL (3.5-5.0); Calcium 8.9 mg/dL (8.4-10.2); Magnesium 1.7 mg/dL (1.6-2.3); Total Bilirubin 0.9 mg/dL (0.2-1.3)
--- NOTE | 2022-09-07 13:15 | XR ---
EXAMINATION TYPE: XR chest 1V portable DATE OF EXAM: 09/07/2022 COMPARISON: Chest x-ray June 23, 2021 HISTORY: Cough. TECHNIQUE: Single AP portable frontal upright view of the chest is obtained. FINDINGS: Elevated right hemidiaphragm is present. There is no suspicious focal air space opacity, pl eural effusion, or pneumothorax seen. The cardiac silhouette size is mildly enlarged with ectatic an d atherosclerotic thoracic aorta. Tracheal deviation with paratracheal soft tissue fullness is redemo nstrated and nonspecific. The osseous structures remain demineralized. IMPRESSION: Chronic changes without acute pulmonary process.
[2022-09-07] MEDS ORDERED: DEXAMETHASONE SOD PHOSPHATE 10 MG/ML 1 ML VIAL IVP STA (15:01)
[2022-09-07] MEDS ORDERED: ALBUTEROL HFA INHALER INHALATION STA (15:21)
[2022-09-07] MEDS ORDERED: ALBUTEROL HFA INHALER INHALATION PRN (15:21)
[2022-09-07] MEDS ORDERED: NALOXONE 0.4 MG/ML 1 ML VIAL IV PRN (15:22)
[2022-09-07] MEDS ORDERED: BENZONATATE 100 MG CAP PO PRN (16:00)
--- NOTE | 2022-09-07 16:04 | P.HPIM ---
History of Present Illness H&P Date: 09/07/22 Chief Complaint: Generalized weakness Patient is a 87-year-old male with a past medical history of hypertension, CK D stage III, BPH, atrial fibrillation who was brought in by caregiver for generalized weakness. Patient is AAO 3 however is not able to give proper timeline per caregiver at bedside. Patient states that his symptoms started 2 weeks ago. However per caregiver patient's symptoms started 2 days ago. She states that last night patient fell and they are not able to get him up. She stated that they tested him for COVID-19 this morning at home and he was positive. So they decided to bring him in for worsening weakness. Patient states that he has a dry cough. He is denying any chest pain. He states that he is having nausea but denies any diarrhea. Caregiver did call family who confirmed that patient did receive 2 doses of the COVID vaccine as well as the booster. Patient himself is not aware that he has been vaccinated. In the ED patient was 96 on room air. During my interview with the patient his oxygenation did drop into the 80s while on room air. Patient's troponin was 0.114. His creatinine was 1.3 which is his baseline. Patient was also found to be positive for COVID-19. Chest x-ray showed no acute process. He is at home with his . Per caregiver there is always someone there with the elderly couple. Review of Systems 10 ROS reviewed and are negative except as noted in HPI Past Medical History Past Medical History: Hyperlipidemia, Prostate Disorder, Renal Disease History of Any Multi-Drug Resistant Organisms: None Reported Past Surgical History: No Surgical Hx Reported Past Anesthesia/Blood Transfusion Reactions: No Reported Reaction Past Psychological History: No Psychological Hx Reported Smoking Status: Former smoker Past Alcohol Use History: Occasional Past Drug Use History: None Reported Medications and Allergies Home Medications Medication Instructions Recorded Confirmed Type Atorvastatin [Lipitor] 20 mg PO HS 06/23/21 09/07/22 History Citalopram Hydrobromide [CeleXA] 20 mg PO DAILY 06/23/21 09/07/22 History Tamsulosin [Flomax] 0.4 mg PO HS 06/23/21 09/07/22 History lisinopriL [Prinivil] 20 mg PO HS 06/23/21 09/07/22 History Metoprolol Tartrate [Lopressor] 12.5 mg PO DAILY 09/07/22 09/07/22 History Rivaroxaban [Xarelto] 15 mg PO W/SUPPER 09/07/22 09/07/22 History Allergies Allergy/AdvReac Type Severity Reaction Status Date / Time No Known Allergies Allergy Verified 09/07/22 11:25 Physical Exam Osteopathic Statement: *. No significant issues noted on an osteopathic structural exam other than those noted in the History and Physical/Consult. Vitals: Vital Signs Temp Pulse Resp BP Pulse Ox 09/07/22 15:51 72 18 95 09/07/22 14:53 67 30 H 163/98 96 09/07/22 12:06 70 20 163/92 100 09/07/22 11:30 26 H 09/07/22 11:18 98.4 F 74 26 H 177/99 96 Intake and Output 09/07/22 09/07/22 09/07/22 06:59 14:59 22:59 Other: Weight 90.718 kg General: [Alert and oriented, well nourished, no acute distress, appears chronically debilitated]. Eye: [PERRL, EOMI, normal conjunctiva]. HENT: [Normocephalic, clear tympanic membranes, normal hearing, dry oral mucosa, no scleral icterus, no sinus tenderness]. Neck: [Supple, non-tender, no carotid bruits, no JVD, no lymphadenopathy]. Lungs: [Diminished breath sounds bilaterally, non-labored respiration]. Heart: [Normal rate, regular rhythm, no murmur, gallop or trace bilateral pitting edema]. Abdomen: [Soft, non-tender, non-distended, normal bowel sounds, no masses]. Musculoskeletal: [Normal range of motion and strength, no tenderness or swelling]. Skin: [Skin is warm, dry and pink, no rashes or lesions]. Neurologic: [Awake, alert, and oriented X3, CN II-XII intact]. Psychiatric: [Cooperative, appropriate mood and affect]. Results CBC & Chem 7: 09/07/22 12:05 09/07/22 12:05 Labs: Abnormal Lab Results - Last 24 Hours (Table) 09/07/22 09/07/22 09/07/22 Range/Units 12:05 12:05 12:05 RBC 4.18 L (4.30-5.90) m/uL Lymphocytes # 0.8 L (1.0-4.8) k/uL PT 12.2 H (9.0-12.0) sec INR 1.2 H (<1.2) Chloride 109 H (98-107) mmol/L BUN 26 H (9-20) mg/dL Creatinine 1.38 H (0.66-1.25) mg/dL Troponin I (0.000-0.034) ng/mL SARS-CoV-2 (PCR) (Not Detectd) 09/07/22 09/07/22 Range/Units 12:05 12:34 RBC (4.30-5.90) m/uL Lymphocytes # (1.0-4.8) k/uL PT (9.0-12.0) sec INR (<1.2) Chloride (98-107) mmol/L BUN (9-20) mg/dL Creatinine (0.66-1.25) mg/dL Troponin I 0.114 H* (0.000-0.034) ng/mL SARS-CoV-2 (PCR) Detected A (Not Detectd) Assessment and Plan Assessment: Acute hypoxic respiratory failure COVID-19 Albuterol inhaler as needed Tessalon Perles when necessary We'll start patient IV Decadron We'll consult pulmonology as patient may be candidate for remdesivir Wean O2 as tolerated There is no active process on chest x-ray show hold off on any antibiotics Elevated troponin likely due to demand ischemia from the above Per caregiver patient had a recent stress test and echocardiogram done one month ago by his primary greige mender. Unfortunately results are not in the chart Consult cardiology Generalized weakness PT OT consult Hypertension Resume lisinopril Permanent atrial fibrillation Resume metoprolol and Xarelto BPH Resume tamsulosin CK D stage III Creatinine baseline around 1.5 Stable CODE STATUS:full code DPOA: Patient's son and daughter DVT prophylaxis: Xarelto Discussed with: Patient, ER, rn Anticipated length of stay > than [address]: home versus alf facility A total of 50 minutes was spent on the care of this complex patient more than 50% of the time was spent in counseling and care coordination.
[2022-09-07] MEDS: RIVAROXABAN 15 MG TAB PO SCH (17:53)
[2022-09-07] MEDS: ACETAMINOPHEN TAB 325 MG TAB PO PRN (18:04)
[2022-09-07 18:35] LABS: C Reactive Protein 4.2 mg/dL (<1.0)
[2022-09-07] MEDS: TAMSULOSIN 0.4 MG CAP.ER.24H PO SCH (20:07)
[2022-09-07] MEDS: ATORVASTATIN 20 MG TAB PO SCH (20:07)
[2022-09-07] MEDS: lisinopriL 20 MG TAB PO SCH (20:07)
[2022-09-07] MEDS: guaiFENesin 600 MG TABLET.ER PO SCH (20:07)
[2022-09-08 04:41] LABS: Basophils % (A) 0 %; Eosinophils % (A) 0 %; HCT 38.4 % (39.0-53.0); HGB 12.8 gm/dL (13.0-17.5); Lymphocytes # (A) 0.7 k/uL (1.0-4.8); Lymphocytes % (A) 10 %; MCH 32.5 pg (25.0-35.0); MCHC 33.2 g/dL (31.0-37.0); MCV 97.9 fL (80.0-100.0); Mean Platelet Volume 8.7; Monocytes # (A) 0.3 k/uL (0-1.0); Monocytes % (A) 4 %; Neutrophils % (A) 85 %; Platelet Count 168 k/uL (150-450); RBC 3.92 m/uL (4.30-5.90); RDW 13.3 % (11.5-15.5)
[2022-09-08 04:55] LABS: Calcium 8.6 mg/dL (8.4-10.2); Potassium 4.4 mmol/L (3.5-5.1)
[2022-09-08] MEDS: CITALOPRAM HYDROBROMIDE 20 MG TAB PO SCH (09:41)
[2022-09-08] MEDS: METOPROLOL TARTRATE 12.5 MG TAB PO SCH (09:41)
[2022-09-08] MEDS: DEXAMETHASONE SOD PHOSPHATE 10 MG/ML 1 ML VIAL IVP SCH (09:41)
[2022-09-08] MEDS: guaiFENesin 600 MG TABLET.ER PO SCH ×2 (09:41→19:41)
--- NOTE | 2022-09-08 10:00 | P.PN ---
Subjective Progress Note Date: 09/08/22 Patient says that he feels much better. He says that he would like to go home. Per nursing notes from yesterday patient was a 2 person assist. I told nurse to reassess patient today and if he is minimal assistance we'll plan on discharging him home. Objective - Vital Signs Vital signs: Vital Signs Temp 98.2 F 09/08/22 09:36 Pulse 67 09/08/22 09:36 Resp 17 09/08/22 09:37 BP 126/73 09/08/22 09:36 Pulse Ox 94 L 09/08/22 09:48 FiO2 Intake & Output 09/07/22 09/08/22 09/08/22 18:59 06:59 18:59 Intake Total 250 Output Total 300 Balance -300 250 Weight 90.718 kg 90.718 kg Intake: IV 10 Invasive Line 2 10 Oral 240 Output: Urine 150 Stool 150 Other: Voiding Method Urinal Urinal # Voids 2 - Exam General examination - Alert and Oriented 3 in NAD, appears chronically debili tated Heart - + S1S2 no murmurs Lungs - diminished breath sounds bilaterally Abdomen soft NT ND +ve BS Extremities - No edema QUALITY ASSURANCE ANALYST - Moving all 4 extremities spontaneously Psych - Calm and cooperative - Labs CBC & Chem 7: 09/08/22 04:16 09/08/22 04:16 Labs: Abnormal Lab Results - Last 24 Hours (Table) 09/07/22 09/07/22 09/07/22 Range/Units 12:05 12:05 12:05 RBC 4.18 L (4.30-5.90) m/uL Hgb (13.0-17.5) gm/dL Hct (39.0-53.0) % Lymphocytes # 0.8 L (1.0-4.8) k/uL PT 12.2 H (9.0-12.0) sec INR 1.2 H (<1.2) Chloride 109 H (98-107) mmol/L BUN 26 H (9-20) mg/dL Creatinine 1.38 H (0.66-1.25) mg/dL Glucose (74-99) mg/dL Lactate Dehydrogenase (313-618) U/L Troponin I (0.000-0.034) ng/mL C-Reactive Protein (<1.0) mg/dL Procalcitonin (0.02-0.09) ng/mL SARS-CoV-2 (PCR) (Not Detectd) 09/07/22 09/07/22 09/07/22 Range/Units 12:05 12:34 17:41 RBC (4.30-5.90) m/uL Hgb (13.0-17.5) gm/dL Hct (39.0-53.0) % Lymphocytes # (1.0-4.8) k/uL PT (9.0-12.0) sec INR (<1.2) Chloride (98-107) mmol/L BUN (9-20) mg/dL Creatinine (0.66-1.25) mg/dL Glucose (74-99) mg/dL Lactate Dehydrogenase (313-618) U/L Troponin I 0.114 H* 0.125 H* (0.000-0.034) ng/mL C-Reactive Protein (<1.0) mg/dL Procalcitonin (0.02-0.09) ng/mL SARS-CoV-2 (PCR) Detected A (Not Detectd) 09/07/22 09/07/22 09/07/22 Range/Units 17:41 17:41 21:29 RBC (4.30-5.90) m/uL Hgb (13.0-17.5) gm/dL Hct (39.0-53.0) % Lymphocytes # (1.0-4.8) k/uL PT (9.0-12.0) sec INR (<1.2) Chloride (98-107) mmol/L BUN (9-20) mg/dL Creatinine (0.66-1.25) mg/dL Glucose (74-99) mg/dL Lactate Dehydrogenase 652 H (313-618) U/L Troponin I 0.112 H* (0.000-0.034) ng/mL C-Reactive Protein 4.2 H (<1.0) mg/dL Procalcitonin 0.19 H (0.02-0.09) ng/mL SARS-CoV-2 (PCR) (Not Detectd) 09/08/22 09/08/22 Range/Units 04:16 04:16 RBC 3.92 L (4.30-5.90) m/uL Hgb 12.8 L (13.0-17.5) gm/dL Hct 38.4 L (39.0-53.0) % Lymphocytes # 0.7 L (1.0-4.8) k/uL PT (9.0-12.0) sec INR (<1.2) Chloride 112 H (98-107) mmol/L BUN 29 H (9-20) mg/dL Creatinine 1.30 H (0.66-1.25) mg/dL Glucose 139 H (74-99) mg/dL Lactate Dehydrogenase (313-618) U/L Troponin I (0.000-0.034) ng/mL C-Reactive Protein (<1.0) mg/dL Procalcitonin (0.02-0.09) ng/mL SARS-CoV-2 (PCR) (Not Detectd) Assessment and Plan Assessment: Acute hypoxic respiratory failure COVID-19 Albuterol inhaler as needed Tessalon Perles when necessary We'll start patient IV Decadron We'll consult pulmonology as patient may be candidate for remdesivir. However this morning patient is on room air so likely will not be a candidate anymore Patient currently satting well on room air There is no active process on chest x-ray show hold off on any antibiotics. Also for calcitonin within normal limits D-dimer within normal limits (embolism ruled out Elevated troponin likely due to demand ischemia from the above Per caregiver patient had a recent stress test and echocardiogram done one month ago by his primary black top machine operator. Unfortunately results are not in the chart Consult cardiology Troponin peaked at 0.125. Troponin trending down Patient denying any chest pain Generalized weakness PT OT consult We'll also have nurse reassess patient and if require minimal assistance we'll plan on sending him home. Hypertension Resume lisinopril Permanent atrial fibrillation Resume metoprolol and Xarelto BPH Resume tamsulosin CK D stage III Creatinine baseline around 1.5 Stable CODE STATUS:full code DPOA: Patient's son and daughter DVT prophylaxis: Xarelto Discussed with: Patient, ER, rn Anticipated length of stay : Possible discharge home today Anticipated discharge place: home versus snf facility
[2022-09-08 10:49] LABS: Basophils % (A) 0 %; Eosinophils % (A) 0 %; HCT 38.4 % (39.0-53.0); HGB 12.4 gm/dL (13.0-17.5); Lymphocytes # (A) 0.9 k/uL (1.0-4.8); Lymphocytes % (A) 12 %; MCH 31.9 pg (25.0-35.0); MCHC 32.3 g/dL (31.0-37.0); MCV 98.9 fL (80.0-100.0); Mean Platelet Volume 8.4; Monocytes # (A) 0.5 k/uL (0-1.0); Monocytes % (A) 6 %; Neutrophils # (A) 5.9 k/uL (1.3-7.7); Neutrophils % (A) 79 %; Platelet Count 156 k/uL (150-450); RBC 3.88 m/uL (4.30-5.90); RDW 13.3 % (11.5-15.5); WBC 7.4 k/uL (3.8-10.6)
--- NOTE | 2022-09-08 13:11 | P.CRDCN ---
History of Present Illness Consult date: 09/08/22 Requesting physician: Racheal Paiz Reason for Consult (text): elevated troponin Chief complaint: generalized weakness, fatigue, COVID History of present illness: Physical pleasant 87-year-old gentleman with a history of paroxysmal atrial fibrillation, hypertension, mild CKD, and BPH. follows with Dr. Bay in the office. Presented with complaints of generalized weakness and fatigue at home. Tested positive at home for COVID. Diagnosis was confirmed by PCR. Labs on admission showed a white blood cell count of 7, hemoglobin .8, BUN 29, creatinine 1.30. We're consulted to see the patient for elevated troponins of 0.114, 0.125 and 0.112. Patient denied any complaints of chest discomfort. He believes he had a stress test done recently in the office that was unremarkable. Recently underwent echocardiogram with Doppler study that showed EF 50-55% with possible bicuspid aortic valve and mild aortic regurgitation. Chest x-ray showed chronic changes without acute pulmonary process. EKG on admission showed anterolateral ST-T wave abnormalities which were previously seen in the past. Vital signs stable he did have a temp last night as high as 100.9F. He is overall feeling fairly well. Denies any shortness of breath, orthopnea or PND. Denies any chest discomfort or palpitations. Past Medical History Past Medical History: Atrial Fibrillation, Hyperlipidemia, Hypertension, Prostate Disorder, Renal Disease Additional Past Medical History / Comment(s): BPH History of Any Multi-Drug Resistant Organisms: None Reported Past Surgical History: No Surgical Hx Reported Past Anesthesia/Blood Transfusion Reactions: No Reported Reaction Past Psychological History: No Psychological Hx Reported Smoking Status: Former smoker Past Alcohol Use History: Occasional Additional Past Alcohol Use History / Comment(s): 1 beer and 1 shot of whiskey a day. stopped smoking 30 years ago Past Drug Use History: None Reported Medications and Allergies Home Medications Medication Instructions Recorded Confirmed Type Atorvastatin [Lipitor] 20 mg PO HS 06/23/21 09/07/22 History Citalopram Hydrobromide [CeleXA] 20 mg PO DAILY 06/23/21 09/07/22 History Tamsulosin [Flomax] 0.4 mg PO HS 06/23/21 09/07/22 History lisinopriL [Prinivil] 20 mg PO HS 06/23/21 09/07/22 History Metoprolol Tartrate [Lopressor] 12.5 mg PO DAILY 09/07/22 09/07/22 History Rivaroxaban [Xarelto] 15 mg PO W/SUPPER 09/07/22 09/07/22 History Allergies Allergy/AdvReac Type Severity Reaction Status Date / Time No Known Allergies Allergy Verified 09/07/22 11:25 Physical Exam Vitals: Vital Signs Temp Pulse Pulse Resp BP BP Pulse Ox 09/08/22 12:24 99.1 F 60 17 156/85 92 L 09/08/22 09:48 94 L 09/08/22 09:37 17 09/08/22 09:36 98.2 F 67 17 126/73 94 L 09/08/22 03:35 97.8 F 99 24 147/92 95 09/08/22 00:52 60 18 09/08/22 00:00 97.4 F L 60 18 148/84 95 09/07/22 21:55 98.0 F 68 18 135/70 95 09/07/22 21:50 98.0 F 68 18 135/70 95 09/07/22 21:23 99.1 F 78 20 157/88 97 09/07/22 20:08 67 18 95 09/07/22 19:00 100.3 F H 09/07/22 17:50 100.9 F H 67 28 H 127/97 96 09/07/22 15:51 72 18 95 09/07/22 14:53 67 30 H 163/98 96 Intake and Output 09/07/22 09/08/22 09/08/22 22:59 06:59 14:59 Intake Total 250 Output Total 300 Balance -300 250 Intake: IV 10 Invasive Line 2 10 Oral 240 Output: Urine 150 Stool 150 Other: Voiding Method Urinal Urinal Urinal # Voids 1 2 Weight 90.718 kg PHYSICAL EXAMINATION: This is a 87-year-old male in no apparent distress at the time of my examination. HEENT: Head is atraumatic, normocephalic. Pupils are equal, round. Sclerae anicteric. Conjunctivae are clear. Mucous membranes of the mouth are moist. Neck is supple. There is no elevated jugular venous pressure. No carotid bruit is heard. CHEST EXAMINATION: Lungs reveal expiratory wheezing throughout. No rales or rhonchi. Respirations even and nonlabored. HEART EXAMINATION: Heart regular, positive S1 and S2. No S3. No S4. Soft systolic murmur. ABDOMEN: Soft, nontender. Bowel sounds are heard. No organomegaly noted. EXTREMITIES: 2+ peripheral pulses with evidence of trace peripheral edema and no calf tenderness noted. NEUROLOGIC EXAMINATION: Patient is awake, alert and oriented x3. Results 09/08/22 10:18 09/08/22 04:16 Cardiac Enzymes 09/07/22 09/07/22 09/07/22 Range/Units 12:05 17:41 17:41 Lactate Dehydrogenase 652 H (313-618) U/L Troponin I 0.114 H* 0.125 H* (0.000-0.034) ng/mL 09/07/22 Range/Units 21:29 Lactate Dehydrogenase (313-618) U/L Troponin I 0.112 H* (0.000-0.034) ng/mL CBC 09/08/22 09/08/22 Range/Units 04:16 10:18 WBC 7.0 7.4 (3.8-10.6) k/uL RBC 3.92 L 3.88 L (4.30-5.90) m/uL Hgb 12.8 L 12.4 L (13.0-17.5) gm/dL Hct 38.4 L 38.4 L (39.0-53.0) % Plt Count 168 156 (150-450) k/uL Comprehensive Metabolic Panel 09/08/22 Range/Units 04:16 Sodium 141 (137-145) mmol/L Potassium 4.4 (3.5-5.1) mmol/L Chloride 112 H (98-107) mmol/L Carbon Dioxide 22 (22-30) mmol/L BUN 29 H (9-20) mg/dL Creatinine 1.30 H (0.66-1.25) mg/dL Glucose 139 H (74-99) mg/dL Calcium 8.6 (8.4-10.2) mg/dL Current Medications Generic Name Dose Route Start Last Admin Trade Name Freq PRN Reason Stop Dose Admin Acetaminophen 650 mg 09/07/22 17:00 09/07/22 18:04 Acetaminophen Tab 325 Mg Tab PO 650 mg Q6HR PRN Administration Fever Albuterol Sulfate 2 puff 09/07/22 15:21 Albuterol Hfa Inhaler INHALATION RT-QID PRN Shortness Of Breath Or Wheezing Atorvastatin Calcium 20 mg 09/07/22 21:00 09/07/22 20:07 Atorvastatin 20 Mg Tab PO 20 mg HS CHRISTO Administration Benzonatate 200 mg 09/07/22 16:00 Benzonatate 100 Mg Cap PO TID PRN Cough Citalopram Hydrobromide 20 mg 09/08/22 09:00 09/08/22 09:41 Citalopram Hydrobromide 20 Mg Tab PO 20 mg DAILY CHRISTO Administration Dexamethasone Sodium Phosphate 6 mg 09/08/22 09:00 09/08/22 09:41 Dexamethasone Sod Phosphate 10 Mg/Ml 1 Ml Vial IVP 6 mg DAILY CHRISTO Administration Guaifenesin 600 mg 09/07/22 21:00 09/08/22 09:41 Guaifenesin 600 Mg Tablet.Er PO 600 mg Q12HR CHRISTO Administration Lisinopril 20 mg 09/07/22 21:00 09/07/22 20:07 Lisinopril 20 Mg Tab PO 20 mg HS CHRISTO Administration Metoprolol Tartrate 12.5 mg 09/08/22 09:00 09/08/22 09:41 Metoprolol Tartrate 12.5 Mg Tab PO 12.5 mg DAILY CHRISTO Administration Naloxone HCl 0.2 mg 09/07/22 15:22 Naloxone 0.4 Mg/Ml 1 Ml Vial IV Q2M PRN Opioid Reversal Rivaroxaban 15 mg 09/07/22 17:30 09/07/22 17:53 Rivaroxaban 15 Mg Tab PO 15 mg W/SUPPER CHRISTO Administration Protocol Tamsulosin HCl 0.4 mg 09/07/22 21:00 09/07/22 20:07 Tamsulosin 0.4 Mg Cap.Er.24h PO 0.4 mg HS CHRISTO Administration Intake and Output 09/07/22 09/08/22 09/08/22 22:59 06:59 14:59 Intake Total 250 Output Total 300 Balance -300 250 Intake: IV 10 Invasive Line 2 10 Oral 240 Output: Urine 150 Stool 150 Other: Voiding Method Urinal Urinal Urinal # Voids 1 2 Weight 90.718 kg 09/08/22 10:18 09/08/22 04:16 Assessment and Plan Assessment: #1 COVID infection #2 elevated troponin likely secondary to above #3 paroxysmal atrial fibrillation, anticoagulated #4 hypertension Plan: From Cardiology's perspective medications were reviewed and will continue the same. No need for further cardiac workup at this time. Follow the patient on an as-needed basis. He will follow-up as an outpatient with Dr. Bay. COLD STORAGE WORKER note has been reviewed, I agree with a documented findings and plan of care. Patient was seen and examined.
[2022-09-08] MEDS: RIVAROXABAN 15 MG TAB PO SCH (16:26)
--- NOTE | 2022-09-08 17:36 | P.PN ---
Subjective Progress Note Date: 09/08/22 87-year-old male patient, being admitted to the hospital because of generalized weakness and is currently infected with Covid 19. The patient is known to have chronic stage III kidney disease, hypertension and chronic atrial fibrillation. The patient has a caregiver. His symptoms with evidence of more than 2 weeks ago and the patient got worse over the past few days. He apparently was developing generalized weakness and he was unable to get up and he had an episode of fall. He tested positive for Covid 19 at home and it was decided to bring the patient to the hospital for further care. He has a dry cough. He does have some nausea. No diarrhea. No chest pain. No altered mentation. The patient has been vaccinated and he has received 2 doses of Covid 19 the initial series. At this point in time, the patient is hemodynamically stable. The patient has a pulse ox of 95% liters of oxygen by nasal cannula. The rhythm is at 7.40 murmurs 14. Normal cognition profile. Normal electrolytes. Creatinine is 1.38 with a BUN of 26. Influenza screen is negative. The chest x-ray showing elevation of the right hemidiaphragm. No focal airspace disease. 09/08/2022, the patient is doing well. No specific complaints. Remains on room air oxygen. Cough is subsided. No worsening shortness of breath. Novomiting or diarrhea or abdominal pain. Remains on Decadron. Meanwhile, the infl ammatory markers were checked and the patient has an LDH level of 652. CRP is at 4.2. Troponins are 0.1 respectively 2. The previous echoes at 7.4 with a hemoglobin 12.4 and a printed count of 156. D-dimer is at 0.54. Objective - Vital Signs Vital signs: Vital Signs Temp 98.2 F 09/08/22 16:22 Pulse 59 L 09/08/22 16:22 Resp 17 09/08/22 16:22 BP 169/85 09/08/22 16:22 Pulse Ox 96 09/08/22 16:22 FiO2 Intake & Output 09/07/22 09/08/22 09/08/22 18:59 06:59 18:59 Intake Total 732 Output Total 300 150 Balance -300 582 Weight 90.718 kg 90.718 kg Intake: IV 20 Invasive Line 2 20 Oral 712 Output: Urine 150 Stool 150 150 Other: Voiding Method Urinal Urinal # Voids 2 - Exam General: Alert and oriented, well nourished, no acute distress, appears chronically debilitated, currently on room air oxygen Eye: [PERRL, EOMI, normal conjunctiva]. HENT: [Normocephalic, clear tympanic membranes, normal hearing, dry oral mucosa, no scleral icterus, no sinus tenderness Neck: [Supple, non-tender, no carotid bruits, no JVD, no lymphadenopathy]. Lungs: [Diminished breath sounds bilaterally, non-labored respiration]. Heart: [Normal rate, regular rhythm, no murmur, gallop or trace bilateral pittin g edema]. Abdomen: [Soft, non-tender, non-distended, normal bowel sounds, no masses]. Musculoskeletal: [Normal range of motion and strength, no tenderness or swelling]. Skin: [Skin is warm, dry and pink, no rashes or lesions]. Neurologic: Awake, alert, and oriented X3, CN II-XII intact, there is gen eralized global weakness in all 4 extremities Psychiatric: [Cooperative, appropriate mood and affect]. - Labs CBC & Chem 7: 09/08/22 10:18 09/08/22 04:16 Labs: Abnormal Lab Results - Last 24 Hours (Table) 09/07/22 09/07/22 09/07/22 Range/Units 17:41 17:41 17:41 RBC (4.30-5.90) m/uL Hgb (13.0-17.5) gm/dL Hct (39.0-53.0) % Lymphocytes # (1.0-4.8) k/uL Chloride (98-107) mmol/L BUN (9-20) mg/dL Creatinine (0.66-1.25) mg/dL Glucose (74-99) mg/dL Lactate Dehydrogenase 652 H (313-618) U/L Troponin I 0.125 H* (0.000-0.034) ng/mL C-Reactive Protein 4.2 H (<1.0) mg/dL Procalcitonin 0.19 H (0.02-0.09) ng/mL 09/07/22 09/08/22 09/08/22 Range/Units 21:29 04:16 04:16 RBC 3.92 L (4.30-5.90) m/uL Hgb 12.8 L (13.0-17.5) gm/dL Hct 38.4 L (39.0-53.0) % Lymphocytes # 0.7 L (1.0-4.8) k/uL Chloride 112 H (98-107) mmol/L BUN 29 H (9-20) mg/dL Creatinine 1.30 H (0.66-1.25) mg/dL Glucose 139 H (74-99) mg/dL Lactate Dehydrogenase (313-618) U/L Troponin I 0.112 H* (0.000-0.034) ng/mL C-Reactive Protein (<1.0) mg/dL Procalcitonin (0.02-0.09) ng/mL 09/08/22 Range/Units 10:18 RBC 3.88 L (4.30-5.90) m/uL Hgb 12.4 L (13.0-17.5) gm/dL Hct 38.4 L (39.0-53.0) % Lymphocytes # 0.9 L (1.0-4.8) k/uL Chloride (98-107) mmol/L BUN (9-20) mg/dL Creatinine (0.66-1.25) mg/dL Glucose (74-99) mg/dL Lactate Dehydrogenase (313-618) U/L Troponin I (0.000-0.034) ng/mL C-Reactive Protein (<1.0) mg/dL Procalcitonin (0.02-0.09) ng/mL Assessment and Plan Plan: acute Covid 19 infection without any any clear evidence of pneumonia. Patient has been vaccinated and he has received origin to series of Covid 19 vaccine.inflammatory markers are low and the patient is currently on room air oxygen. The patient is also on Decadron. Generalized weakness and constitutional symptoms related to Covid 19 infection Chronic elevation of the right hemidiaphragm Chronic stage III kidney disease Chronic atrial fibrillation Hypertension Generalized weakness and falls secondary to Covid 19 infection hyperlipidemia BPH Plan clinically stable continue Decadron 6 mg on a daily basis IV inflammatory markers including LDH and d-dimer is and CRP were essentially low Titrate oxygen flow to maintain a saturation above 90%, currently on room air oxygen Aspiration precautions Multivitamin replacement Resume all medications Monitor renal function Not a candidate for Remdesivir will follow
[2022-09-08] MEDS: TAMSULOSIN 0.4 MG CAP.ER.24H PO SCH (19:41)
[2022-09-08] MEDS: ATORVASTATIN 20 MG TAB PO SCH (19:41)
[2022-09-08] MEDS: lisinopriL 20 MG TAB PO SCH (19:41)
[2022-09-09] MEDS: METOPROLOL TARTRATE 12.5 MG TAB PO SCH (09:18)
[2022-09-09] MEDS: guaiFENesin 600 MG TABLET.ER PO SCH ×2 (09:18→22:02)
[2022-09-09] MEDS: DEXAMETHASONE SOD PHOSPHATE 10 MG/ML 1 ML VIAL IVP SCH (09:19)
[2022-09-09] MEDS: CITALOPRAM HYDROBROMIDE 20 MG TAB PO SCH (09:19)
--- NOTE | 2022-09-09 10:03 | P.PN ---
Subjective Progress Note Date: 09/09/22 Patient currently on room air and is satting well. He says that his breathing is improving. He also states that her weakness is improving. Patient states that he would like to go home. As per nurse patient is still a 1-2 person assist. Objective - Vital Signs Vital signs: Vital Signs Temp 97.8 F 09/09/22 09:11 Pulse 84 09/09/22 09:11 Resp 16 09/09/22 09:11 BP 146/88 09/09/22 09:11 Pulse Ox 96 09/09/22 09:11 FiO2 Intake & Output 09/08/22 09/09/22 09/09/22 18:59 06:59 18:59 Intake Total 912 180 Output Total 150 150 300 Balance 762 -150 -120 Intake: IV 20 Invasive Line 2 20 Oral 892 180 Output: Urine 300 Stool 150 150 Other: Voiding Method Urinal Urinal Urinal Diaper Diaper # Voids 1 - Exam General examination - Alert and Oriented 3 in NAD, appears chronically debilitated Heart - + S1S2 no murmurs Lungs - diminished breath sounds bilaterally Abdomen soft NT ND +ve BS Extremities - No edema [employer] - Moving all 4 extremities spontaneously Psych - Calm and cooperative - Labs CBC & Chem 7: 09/08/22 10:18 09/08/22 04:16 Labs: Abnormal Lab Results - Last 24 Hours (Table) 09/08/22 Range/Units 10:18 RBC 3.88 L (4.30-5.90) m/uL Hgb 12.4 L (13.0-17.5) gm/dL Hct 38.4 L (39.0-53.0) % Lymphocytes # 0.9 L (1.0-4.8) k/uL Assessment and Plan Assessment: Acute hypoxic respiratory failure COVID-19 Albuterol inhaler as needed Tessalon Perles when necessary Resume IV Decadron Per pulm patient is not a candidate for remdesivir. Patient currently satting well on room air There is no active process on chest x-ray so hold off on any antibiotics. Also for procalcitonin within normal limits D-dimer within normal limits (embolism ruled out) Elevated troponin likely due to demand ischemia from the above Per cardiology note patient had a recent echocardiogram that showed a normal LV function Troponin peaked at 0.125. Troponin trending down Patient denying any chest pain Per cardiology no further workup needed at this time Fall with Generalized weakness PT OT consult pending Hypertension Resume lisinopril Permanent atrial fibrillation Resume metoprolol and Xarelto BPH Resume tamsulosin CK D stage III Creatinine baseline around 1.5 Stable CODE STATUS:full code DPOA: Patient's son and daughter DVT prophylaxis: Xarelto Anticipated length of stay : Awaiting for PT OT consult otherwise patient is medically stable for discharge Anticipated discharge place: home versus intermediate facility
--- NOTE | 2022-09-09 14:08 | P.PN ---
Subjective Progress Note Date: 09/09/22 87-year-old male patient, being admitted to the hospital because of generalized weakness and is currently infected with Covid 19. The patient is known to have chronic stage III kidney disease, hypertension and chronic atrial fibrillation. The patient has a caregiver. His symptoms with evidence of more than 2 weeks ago and the patient got worse over the past few days. He apparently was developing generalized weakness and he was unable to get up and he had an episode of fall. He tested positive for Covid 19 at home and it was decided to bring the patient to the hospital for further care. He has a dry cough. He does have some nausea. No diarrhea. No chest pain. No altered mentation. The patient has been vaccinated and he has received 2 doses of Covid 19 the initial series. At this point in time, the patient is hemodynamically stable. The patient has a pulse ox of 95% liters of oxygen by nasal cannula. The rhythm is at 7.40 murmurs 14. Normal cognition profile. Normal electrolytes. Creatinine is 1.38 with a BUN of 26. Influenza screen is negative. The chest x-ray showing elevation of the right hemidiaphragm. No focal airspace disease. 09/08/2022, the patient is doing well. No specific complaints. Remains on room air oxygen. Cough is subsided. No worsening shortness of breath. Novomiting or diarrhea or abdominal pain. Remains on Decadron. Meanwhile, the infl ammatory markers were checked and the patient has an LDH level of 652. CRP is at 4.2. Troponins are 0.1 respectively 2. The previous echoes at 7.4 with a hemoglobin 12.4 and a printed count of 156. D-dimer is at 0.54. 12 2021, doing well recently remains on room air oxygen. Still weak although gradually getting stronger and improving. No recent blood work today. Further markers were not elevated. Objective - Vital Signs Vital signs: Vital Signs Temp 98.5 F 09/09/22 12:00 Pulse 64 09/09/22 12:00 Resp 16 09/09/22 12:00 BP 122/72 09/09/22 12:00 Pulse Ox 93 L 09/09/22 12:00 FiO2 Intake & Output 09/08/22 09/09/22 09/09/22 18:59 06:59 18:59 Intake Total 912 298 Output Total 150 150 300 Balance 762 -150 -2 Intake: IV 20 Invasive Line 2 20 Oral 892 298 Output: Urine 300 Stool 150 150 Other: Voiding Method Urinal Urinal Urinal Diaper Diaper # Voids 1 - Exam General: Alert and oriented, well nourished, no acute distress, appears chronically debilitated, currently on room air oxygen Eye: [PERRL, EOMI, normal conjunctiva]. HENT: [Normocephalic, clear tympanic membranes, normal hearing, dry oral mucosa, no scleral icterus, no sinus tenderness Neck: [Supple, non-tender, no carotid bruits, no JVD, no lymphadenopathy]. Lungs: [Diminished breath sounds bilaterally, non-labored respiration]. Heart: [Normal rate, regular rhythm, no murmur, gallop or trace bilateral pitting edema]. Abdomen: [Soft, non-tender, non-distended, normal bowel sounds, no masses]. Musculoskeletal: [Normal range of motion and strength, no tenderness or swelling]. Skin: [Skin is warm, dry and pink, no rashes or lesions]. Neurologic: Awake, alert, and oriented X3, CN II-XII intact, there is generalized global weakness in all 4 extremities Psychiatric: [Cooperative, appropriate mood and affect]. - Labs CBC & Chem 7: 09/08/22 10:18 09/08/22 04:16 Assessment and Plan Plan: acute Covid 19 infection without any any clear evidence of pneumonia. Patient has been vaccinated and he has received origin to series of Covid 19 vaccine.inflammatory markers are low and the patient is currently on room air oxygen. The patient is also on Decadron. Generalized weakness and constitutional symptoms related to Covid 19 infection Chronic elevation of the right hemidiaphragm Chronic stage III kidney disease Chronic atrial fibrillation Hypertension Generalized weakness and falls secondary to Covid 19 infection hyperlipidemia BPH Plan clinically stable Oxygenation remains stable remains on room air oxygen continue Decadron 6 mg on a daily basis IV inflammatory markers including LDH and d-dimer is and CRP were essentially low Titrate oxygen flow to maintain a saturation above 90%, currently on room air oxygen Aspiration precautions Multivitamin replacement Resume all medications Monitor renal function Not a candidate for Remdesivir will follow
[2022-09-09] MEDS: ACETAMINOPHEN TAB 325 MG TAB PO PRN (16:58)
[2022-09-09] MEDS: RIVAROXABAN 15 MG TAB PO SCH (16:59)
[2022-09-09] MEDS: TAMSULOSIN 0.4 MG CAP.ER.24H PO SCH (22:02)
[2022-09-09] MEDS: ATORVASTATIN 20 MG TAB PO SCH (22:03)
[2022-09-09] MEDS: lisinopriL 20 MG TAB PO SCH (22:03)
[2022-09-10] MEDS: DEXAMETHASONE SOD PHOSPHATE 10 MG/ML 1 ML VIAL IVP SCH (08:57)
[2022-09-10] MEDS: METOPROLOL TARTRATE 12.5 MG TAB PO SCH (08:57)
[2022-09-10] MEDS: guaiFENesin 600 MG TABLET.ER PO SCH (08:58)
[2022-09-10] MEDS: CITALOPRAM HYDROBROMIDE 20 MG TAB PO SCH (08:58)
[2022-09-10 09:03] VITALS: BP 149/89; PULSE 61; RESP 16; TEMP 98
--- NOTE | 2022-09-10 11:57 | P.DS ---
Providers Date of admission: 09/07/22 15:22 Expected date of discharge: 09/10/22 Attending physician: Racheal Paiz, Consults: 09/07/22 15:22 Consult Physician Urgent Consulting Provider: Latonya Quevedo Consult Reason/Comments: covid infection Do you want consulting provider notified?: Yes 09/07/22 15:52 Consult Physician Routine Consulting Provider: Amanuel Hickman Consult Reason/Comments: elevated troponin Do you want consulting provider notified?: Yes Primary care physician: Donell Caraballo MD Hospital Course: Patient is a 87-year-old male with a past medical history of hypertension, CKD stage III, BPH, atrial fibrillation who was brought in by caregiver for generalized weakness. Caregiver did call family who confirmed that patient did receive 2 doses of the COVID vaccine as well as the booster. Patient himself is not aware that he has been vaccinated. In the ED patient was 96 on room air. During my interview with the patient his oxygenation did drop into the 80s while on room air. Patient's troponin was 0.114. His creatinine was 1.3 which is his baseline. Patient was also found to be positive for COVID-19. Chest x-ray showed no acute process. Patient was admitted for further management of symptoms. Patient does not have elevated pro-calcitonin, CRP and LDH which was thought to be related to COVID-19 infection. D-dimer was negative. He was started on Decadron. Albuterol, Robitussin and Tessalon as needed was added to his medication regimen. Pulmonology was consulted and followed the patient during his hospitalization. Cardiology was consulted with regard to elevated troponins. Troponins were elevated at 0.114, 0.125, 0.112. Cardiology recommended no further workup. PT and OT was consulted and recommended home with home care and caregiver assistance. Patient was seen and examined this morning. No acute events overnight. Patient reports no chest pain, shortness breath or palpitations. Patient is adamant about wanting to go home. States that he has 24-hour caregiver assistance at home. Pertinent studies include chest x ray. General: non toxic, no distress, appears at stated age Derm: warm, dry Head: atraumatic, normocephalic, symmetric Eyes: EOMI, no lid lag, anicteric sclera Mouth: no lip lesion, mucus membranes moist Cardiovascular: S1S2 reg, no murmur Lungs: CTA bilateral, no rhonchi, no rales , no accessory muscle use Ext: no gross muscle atrophy, no edema, no contractures Neuro: no focal neuro deficits Psych: Alert, oriented, appropriate affect Discharge diagnoses: #Acute hypoxic respiratory failure #COVID-19 #Elevated troponin likely due to demand ischemia from the above #Fall with Generalized weakness #Hypertension #Permanent atrial fibrillation #BPH #CKD stage III Patient will be discharged home with the following instructions. Diet: Cardiac Follow up with your PCP within 1-2 days of discharge. Take all medications as advised. Come back to the ED or call 911 for worsening chest pain, shortness of breath, palpitations or lightheadedness. This complex discharge took 35 minutes to complete. Patient Condition at Discharge: Stable Plan - Discharge Summary Discharge Rx Participant: No New Discharge Prescriptions: New dexAMETHasone [Decadron] 6 mg PO DAILY #7 tablet RX: Benzonatate [Tessalon Perles] 200 mg PO TID PRN #30 cap PRN Reason: Cough RX: guaiFENesin [Mucinex] 600 mg PO Q12HR #20 tab RX: Albuterol Inhaler [Ventolin Hfa Inhaler] 2 puff INHALATION RT-QID PRN #1 inh PRN Reason: Shortness Of Breath Or Wheezing Continue RX: Citalopram Hydrobromide [CeleXA] 20 mg PO DAILY RX: lisinopriL [Prinivil] 20 mg PO HS RX: Rivaroxaban [Xarelto] 15 mg PO W/SUPPER RX: Metoprolol Tartrate [Lopressor] 12.5 mg PO DAILY RX: Atorvastatin [Lipitor] 20 mg PO HS RX: Tamsulosin [Flomax] 0.4 mg PO HS Discharge Medication List RX: Atorvastatin [Lipitor] 20 mg PO HS 06/23/21 [History] RX: Citalopram Hydrobromide [CeleXA] 20 mg PO DAILY 06/23/21 [History] RX: Tamsulosin [Flomax] 0.4 mg PO HS 06/23/21 [History] RX: lisinopriL [Prinivil] 20 mg PO HS 06/23/21 [History] RX: Metoprolol Tartrate [Lopressor] 12.5 mg PO DAILY 09/07/22 [History] RX: Rivaroxaban [Xarelto] 15 mg PO W/SUPPER 09/07/22 [History] RX: Albuterol Inhaler [Ventolin Hfa Inhaler] 2 puff INHALATION RT-QID PRN #1 inh 09/10/22 [Rx] RX: Benzonatate [Tessalon Perles] 200 mg PO TID PRN #30 cap 09/10/22 [Rx] RX: guaiFENesin [Mucinex] 600 mg PO Q12HR #20 tab 09/10/22 [Rx] dexAMETHasone [Decadron] 6 mg PO DAILY #7 tablet 09/10/22 [Rx] Follow up Appointment(s)/Referral(s): Donell Caraballo MD [Primary Care Provider] - 1-2 days Residential Home,Health [NON-STAFF] - Patient Instructions/Handouts: Heart Attack (DC), COVID-19 (Coronavirus Disease 2019) (DC) Activity/Diet/Wound Care/Special Instructions: Diet: Cardiac Follow up with your PCP within 1-2 days of discharge. Take all medications as advised. Come back to the ED or call 911 for worsening chest pain, shortness of breath, palpitations or lightheadedness. Discharge Disposition: HOME WITH HOME HEALTH SERVICES
== END 2022-09-10 13:00 | disposition home health service (06) | DRG 177 ==
LOC: EC 11:08 → 3SCARD 15:22
PROVIDERS: ADMIT Internal Medicine; ATTEND Internal Medicine
DX: U07.1 COVID-19 (principal); I21.A1 Myocardial infarction type 2; J96.01 Acute respiratory failure with hypoxia; I48.21 Permanent atrial fibrillation; R53.1 Weakness; E78.5 Hyperlipidemia, unspecified; I12.9 Hypertensive chronic kidney disease with stage 1 through stage 4 chronic kidney disease, or unspecified chronic kidney disease; N18.30 Chronic kidney disease, stage 3 unspecified; N40.0 Benign prostatic hyperplasia without lower urinary tract symptoms; Z79.01 Long term (current) use of anticoagulants; Z79.899 Other long term (current) drug therapy; Z87.891 Personal history of nicotine dependence
CPT/HCPCS: 36415; 71045; 80048; 80053; 83605; 83615; 83735; 83880; 84145; 84484; 85025; 85379; 85610; 85730; 86140; 87636; 93005; 94640; 96361; 96365; 96367; 96374; 99285

== ENCOUNTER 2023-04-06 14:30 | Emergency (ER) | payer MEDICARE ==
--- NOTE | 2023-04-06 15:33 | ED ---
General Adult HPI - General Chief complaint: Shortness of Breath Stated complaint: Fever,chest pain Time Seen by Provider: 04/06/23 14:45 Source: patient, RN notes reviewed, old records reviewed Mode of arrival: ambulatory Limitations: no limitations - History of Present Illness Initial comments: This is an 88-year-old male who presents emergency Department who complains of difficulty breathing and generalized weakness. According to family patient was unable to stand which is unusual for him. Patient also coughing up some green sputum. Patient denies any fever. Patient denies any chest pain or palpitations. Patient denies any abdominal pain patient denies nausea vomiting diarrhea. Patient denies any swelling to the legs or calf tenderness. Patient denies any recent injury or trauma. - Related Data Home Medications Medication Instructions Recorded Confirmed Atorvastatin [Lipitor] 20 mg PO HS 06/23/21 09/07/22 Citalopram Hydrobromide [CeleXA] 20 mg PO DAILY 06/23/21 09/07/22 Tamsulosin [Flomax] 0.4 mg PO HS 06/23/21 09/07/22 lisinopriL [Prinivil] 20 mg PO HS 06/23/21 09/07/22 Metoprolol Tartrate [Lopressor] 12.5 mg PO DAILY 09/07/22 09/07/22 Rivaroxaban [Xarelto] 15 mg PO W/SUPPER 09/07/22 09/07/22 Previous Rx's Medication Instructions Recorded Albuterol Inhaler [Ventolin Hfa 2 puff INHALATION RT-QID PRN #1 inh 09/10/22 Inhaler] Benzonatate [Tessalon Perles] 200 mg PO TID PRN #30 cap 09/10/22 dexAMETHasone [Decadron] 6 mg PO DAILY #7 tablet 09/10/22 guaiFENesin [Mucinex] 600 mg PO Q12HR #20 tab 09/10/22 Allergies Allergy/AdvReac Type Severity Reaction Status Date / Time No Known Allergies Allergy Verified 04/06/23 14:38 Review of Systems ROS Statement: Those systems with pertinent positive or pertinent negative responses have been documented in the HPI. ROS Other: All systems not noted in ROS Statement are negative. Past Medical History Past Medical History: Hyperlipidemia, Prostate Disorder, Renal Disease Additional Past Medical History / Comment(s): BPH History of Any Multi-Drug Resistant Organisms: None Reported Past Surgical History: No Surgical Hx Reported Past Anesthesia/Blood Transfusion Reactions: No Reported Reaction Past Psychological History: No Psychological Hx Reported Smoking Status: Former smoker Past Alcohol Use History: Occasional Past Drug Use History: None Reported General Exam - General Exam Comments Initial Comments: GENERAL: Patient is well-developed and well-nourished. Patient is nontoxic and well- hydrated and is in mild distress. ENT: Neck is soft and supple. No significant lymphadenopathy is noted. Oropharynx is clear. Moist mucous membranes. Neck has full range of motion without eliciting any pain. EYES: The sclera were anicteric and conjunctiva were pink and moist. Extraocular movements were intact and pupils were equal round and reactive to light. Eyelids were unremarkable. PULMONARY: Unlabored respirations. Good breath sounds bilaterally. No audible rales rhonchi or wheezing was noted. CARDIOVASCULAR: There is a regular rate and rhythm without any murmurs gallops or rubs. ABDOMEN: Soft and nontender with normal bowel sounds. SKIN: Skin is clear with no lesions or rashes and otherwise unremarkable. NEUROLOGIC: Patient is alert and oriented x3. Cranial nerves II through XII are grossly intact. Motor and sensory are also intact. Normal speech, volume and content. Symmetrical smile. MUSCULOSKELETAL: Normal extremities with adequate strength and full range of motion. LYMPHATICS: No significant lymphadenopathy is noted PSYCHIATRIC: Normal psychiatric evaluation. Limitations: no limitations Course Vital Signs 04/06/23 04/06/23 04/06/23 14:35 14:46 14:48 Temperature 100 F H Pulse Rate 72 Respiratory 18 24 Rate Blood Pressure 142/76 O2 Sat by Pulse 92 L 95 Oximetry 04/06/23 04/06/23 04/06/23 14:57 15:00 15:30 Temperature Pulse Rate 75 84 77 Respiratory 24 16 14 Rate Blood Pressure 128/84 128/84 121/78 O2 Sat by Pulse 98 Oximetry 04/06/23 04/06/23 04/06/23 16:00 16:30 17:00 Temperature Pulse Rate 80 70 73 Respiratory 24 14 18 Rate Blood Pressure 134/75 132/85 140/90 O2 Sat by Pulse 96 96 Oximetry 04/06/23 17:30 Temperature Pulse Rate 75 Respiratory 24 Rate Blood Pressure 161/142 O2 Sat by Pulse 96 Oximetry Medical Decision Making - Medical Decision Making Patient's EKG is interpreted by myself shows atrial fibrillation at 77 bpm QRS is 96 QT interval 355 QTC is 387. Patient's EKG shows no ST segment elevation. Was pt. sent in by a medical professional or institution (, PA, MANAGER FILM, urgent care, hospital, or prison...) When possible be specific @ -No Did you speak to anyone other than the patient for history (EMS, parent, family, police, friend...)? What history was obtained from this source @ -Son gave quite a bit of the history Did you review nursing and triage notes (agree or disagree)? Why? @ -I reviewed and agree with nursing and triage notes Were old charts reviewed (outside hosp., previous admission, EMS record, old EKG, old radiological studies, urgent care reports/EKG's, prison records)? Report findings @ -I reviewed prior lab work and prior radiological studies Differential Diagnosis (chest pain, altered mental status, abdominal pain women, abdominal pain men, vaginal bleeding, weakness, fever, dyspnea, syncope, headache, dizziness, GI bleed, back pain, seizure, CVA, palpatations, mental health, musculoskeletal)? @ -Differential Weakness: Hypoglycemia, shock, sepsis, hyponatremia, anemia, infection, [place], ETOH, adverse medicine reaction, overdose, stroke, this is not meant to be an all-inclusive list. EKG interpreted by me (3pts min.). @ -As above X-rays interpreted by me (1pt min.). @ -Chest x-ray showed no acute abnormality CT interpreted by me (1pt min.). @ -None done U/S interpreted by me (1pt. min.). @ -None done What testing was considered but not performed or refused? (CT, X-rays, U/S, labs)? Why? @ -None What meds were considered but not given or refused? Why? @ -None Did you discuss the management of the patient with other professionals (professionals i.e. , LARRY, MANAGER FILM, lab, RT, psych nurse, certified social workers in health care, car cleaning supervisor, teacher, mounted police officer, counseling case manager)? Give summary @ -No Was smoking cessation discussed for >3mins.? @ -No Was critical care preformed (if so, how long)? @ -No Were there social determinants of health that impacted care today? How? (Homele ssness, low income, unemployed, alcoholism, drug addiction, transportation, low edu. Level, literacy, decrease access to med. care, residential, rehab)? @ -No Was there de-escalation of care discussed even if they declined (Discuss DNR or withdrawal of care, Hospice)? DNR status @ -No What co-morbidities impacted this encounter? (DM, HTN, Smoking, COPD, CAD, Cancer, CVA, ARF, Chemo, Hep., AIDS, mental health diagnosis, sleep apnea, morbid obesity)? @ -None Was patient admitted / discharged? Hospital course, mention meds given and route, prescriptions, significant lab abnormalities, going to OR and other pertinent info. @ -Patient was emergency department and received some fluid as well as Tylenol I will back into reevaluate the patient he was able to ambulate without problem. His vitals were stable. Patient stated he felt much better and family also agreed that he was doing considerably better than when he arrived. Patient states that he is feeling considerably better and like to go home and will return of any symptoms worsen or there are any new symptoms. Undiagnosed new problem with uncertain prognosis? @ -No Drug Therapy requiring intensive monitoring for toxicity (Heparin, Nitro, Insulin, Cardizem)? @ -No Were any procedures done? @ -No Diagnosis/symptom? @ -Viral syndrome Acute, or Chronic, or Acute on Chronic? @ -Acute Uncomplicated (without systemic symptoms) or Complicated (systemic symptoms)? @ -Uncomplicated Side effects of treatment? @ -No Exacerbation, Progression, or Severe Exacerbation? @ -No Poses a threat to life or bodily function? How? (Chest pain, [place], NJ, pneumonia, PE, COPD, DKA, ARF, appy, cholecystitis, CVA, Diverticulitis, Homicidal, Suicidal, threat to staff... and all critical care pts) @ -No - Lab Data Result diagrams: 04/06/23 15:21 04/06/23 15:21 Lab Results 04/06/23 04/06/23 04/06/23 Range/Units 15:21 15:21 15:21 WBC 5.9 (3.8-10.6) k/uL RBC 4.12 L (4.30-5.90) m/uL Hgb 13.6 (13.0-17.5) gm/dL Hct 40.3 (39.0-53.0) % MCV 97.7 (80.0-100.0) fL MCH 33.1 (25.0-35.0) pg MCHC 33.9 (31.0-37.0) g/dL RDW 12.8 (11.5-15.5) % Plt Count 180 (150-450) k/uL MPV 7.8 Neutrophils % 63 % Lymphocytes % 22 % Monocytes % 9 % Eosinophils % 4 % Basophils % 0 % Neutrophils # 3.8 (1.3-7.7) k/uL Lymphocytes # 1.3 (1.0-4.8) k/uL Monocytes # 0.5 (0-1.0) k/uL Eosinophils # 0.2 (0-0.7) k/uL Basophils # 0.0 (0-0.2) k/uL Sodium 141 (137-145) mmol/L Potassium 4.3 (3.5-5.1) mmol/L Chloride 109 H (98-107) mmol/L Carbon Dioxide 21 L (22-30) mmol/L Anion Gap 11 mmol/L BUN 19 (9-20) mg/dL Creatinine 1.31 H (0.66-1.25) mg/dL Est GFR (CKD-EPI)AfAm 56 (>60 ml/min/1.73 sqM) Est GFR (CKD-EPI)NonAf 49 (>60 ml/min/1.73 sqM) Glucose 95 (74-99) mg/dL Plasma Lactic Acid Ammon (0.7-2.0) mmol/L Calcium 8.8 (8.4-10.2) mg/dL Total Bilirubin 1.0 (0.2-1.3) mg/dL AST 23 (17-59) U/L ALT 21 (4-49) U/L Alkaline Phosphatase 98 (38-126) U/L Total Protein 6.5 (6.3-8.2) g/dL Albumin 3.6 (3.5-5.0) g/dL Urine Color Yellow Urine Appearance Clear (Clear) Urine pH 5.0 (5.0-8.0) Ur Specific [place] 1.020 (1.001-1.035) Urine Protein Trace H (Negative) Urine Glucose (UA) Negative (Negative) Urine Ketones Negative (Negative) Urine Blood Negative (Negative) Urine Nitrite Negative (Negative) Urine Bilirubin Negative (Negative) Urine Urobilinogen <2.0 (<2.0) mg/dL Ur Leukocyte Esterase Small H (Negative) Urine RBC 1 (0-5) /hpf Urine WBC 3 (0-5) /hpf Ur Squamous Epith Cells <1 (0-4) /hpf Urine Mucus Occasional H (None) /hpf 04/06/23 Range/Units 15:21 WBC (3.8-10.6) k/uL RBC (4.30-5.90) m/uL Hgb (13.0-17.5) gm/dL Hct (39.0-53.0) % MCV (80.0-100.0) fL MCH (25.0-35.0) pg MCHC (31.0-37.0) g/dL RDW (11.5-15.5) % Plt Count (150-450) k/uL MPV Neutrophils % % Lymphocytes % % Monocytes % % Eosinophils % % Basophils % % Neutrophils # (1.3-7.7) k/uL Lymphocytes # (1.0-4.8) k/uL Monocytes # (0-1.0) k/uL Eosinophils # (0-0.7) k/uL Basophils # (0-0.2) k/uL Sodium (137-145) mmol/L Potassium (3.5-5.1) mmol/L Chloride (98-107) mmol/L Carbon Dioxide (22-30) mmol/L Anion Gap mmol/L BUN (9-20) mg/dL Creatinine (0.66-1.25) mg/dL Est GFR (CKD-EPI)AfAm (>60 ml/min/1.73 sqM) Est GFR (CKD-EPI)NonAf (>60 ml/min/1.73 sqM) Glucose (74-99) mg/dL Plasma Lactic Acid Ammon 1.1 (0.7-2.0) mmol/L Calcium (8.4-10.2) mg/dL Total Bilirubin (0.2-1.3) mg/dL AST (17-59) U/L ALT (4-49) U/L Alkaline Phosphatase (38-126) U/L Total Protein (6.3-8.2) g/dL Albumin (3.5-5.0) g/dL Urine Color Urine Appearance (Clear) Urine pH (5.0-8.0) Ur Specific [place] (1.001-1.035) Urine Protein (Negative) Urine Glucose (UA) (Negative) Urine Ketones (Negative) Urine Blood (Negative) Urine Nitrite (Negative) Urine Bilirubin (Negative) Urine Urobilinogen (<2.0) mg/dL Ur Leukocyte Esterase (Negative) Urine RBC (0-5) /hpf Urine WBC (0-5) /hpf Ur Squamous Epith Cells (0-4) /hpf Urine Mucus (None) /hpf Disposition Clinical Impression: Viral syndrome Disposition: HOME SELF-CARE Condition: Good Instructions (If sedation given, give patient instructions): Viral Syndrome (ED) Is patient prescribed a controlled substance at d/c from ED?: No Referrals: Donell Caraballo MD [Primary Care Provider] - 1-2 days Time of Disposition: 19:18
[2023-04-06 15:52] LABS: Basophils % (A) 0 %; Eosinophils # (A) 0.2 k/uL (0-0.7); Eosinophils % (A) 4 %; HCT 40.3 % (39.0-53.0); HGB 13.6 gm/dL (13.0-17.5); Lymphocytes # (A) 1.3 k/uL (1.0-4.8); Lymphocytes % (A) 22 %; MCH 33.1 pg (25.0-35.0); MCHC 33.9 g/dL (31.0-37.0); MCV 97.7 fL (80.0-100.0); Mean Platelet Volume 7.8; Monocytes # (A) 0.5 k/uL (0-1.0); Monocytes % (A) 9 %; Neutrophils # (A) 3.8 k/uL (1.3-7.7); Neutrophils % (A) 63 %; Platelet Count 180 k/uL (150-450); RBC 4.12 m/uL (4.30-5.90); RDW 12.8 % (11.5-15.5); WBC 5.9 k/uL (3.8-10.6)
[2023-04-06 16:04] LABS: ALT 21 U/L (4-49); AST 23 U/L (17-59); African American GFR (CKD) 56 (>60 ml/min/1.73 sqM); Albumin 3.6 g/dL (3.5-5.0); Alkaline Phosphatase 98 U/L (38-126); Anion Gap 11 mmol/L; Blood Urea Nitrogen 19 mg/dL (9-20); Calcium 8.8 mg/dL (8.4-10.2); Carbon Dioxide 21 mmol/L (22-30); Chloride 109 mmol/L (98-107); Glucose 95 mg/dL (74-99); Non-African American GFR(CKD) 49 (>60 ml/min/1.73 sqM); Potassium 4.3 mmol/L (3.5-5.1); Sodium 141 mmol/L (137-145); Total Protein 6.5 g/dL (6.3-8.2)
--- NOTE | 2023-04-06 16:31 | XR ---
EXAMINATION TYPE: XR chest 2V DATE OF EXAM: 04/06/2023 COMPARISON: 09/07/2022 HISTORY: 88-year-old male with fever and chest pain TECHNIQUE: AP and lateral views FINDINGS: Heart upper limits of normal in size. Tortuous/ectatic thoracic aorta. No consolidation or pleural ef fusion. Eventration anterior right hemidiaphragm. IMPRESSION: Borderline heart size. No definite acute process.
[2023-04-06 17:21] LABS: Appearance,Urine Clear (Clear); Bilirubin,Urine Negative (Negative); Blood,Urine Negative (Negative); Color,Urine Yellow; Glucose,Urine (UA) Negative (Negative); Ketones,Urine Negative (Negative); Leukocyte Esterase,Urine Small (Negative); Mucus,Urine Occasional /hpf; Nitrite,Urine Negative (Negative); Protein,Urine Trace (Negative); RBC,Urine 1 /hpf (0-5); Squamous Epithelial Cell,Urine <1 /hpf (0-4); Urobilinogen,Urine <2.0 mg/dL (<2.0); WBC,Urine 3 /hpf (0-5)
[2023-04-06] MEDS ORDERED: SODIUM CHLORIDE 0.9% 500 ML 500 ML IV STA (17:37)
[2023-04-06] MEDS ORDERED: ACETAMINOPHEN TAB 500 MG TAB PO STA (19:14)
[2023-04-06 19:43] VITALS: BP 147/96; PULSE 78; RESP 22; TEMP 99.2
== END 2023-04-06 19:40 | disposition home or self-care (01) ==
LOC: EC 14:30
DX: B34.9 Viral infection, unspecified (principal); E78.5 Hyperlipidemia, unspecified; Z79.899 Other long term (current) drug therapy; Z87.891 Personal history of nicotine dependence
CPT/HCPCS: 36415; 71046; 80053; 81001; 83605; 85025; 87040; 93005; 99285

== ENCOUNTER → 2023-04-11 | Outpatient (CLI) | payer MEDICARE ==
--- NOTE | 2023-04-11 11:35 | US ---
EXAMINATION TYPE: US abdomen complete DATE OF EXAM: 04/11/2023 COMPARISON: NONE CLINICAL INDICATION: Male, 88 years old with history of R10.9 UNSPECIFIED ABDOMINAL PAIN; RUQ pain TECHNIQUE: Multiple sonographic images of the abdomen are obtained. 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 The intrahepatic portion of the IVC and proximal abdominal aorta are within normal limits. There is no evidence of cholelithiasis. Common bile duct is unremarkable. The visu alized portions of the pancreas are homogenous. The spleen is unremarkable. No renal lesions are se en. IMPRESSION: Renal cystic changes.
== END | disposition home or self-care (01) ==
LOC: RADUSWWP 10:24
PROVIDERS: ATTEND Family Medicine
DX: N28.1 Cyst of kidney, acquired (principal)
CPT/HCPCS: 76700

== ENCOUNTER 2023-04-26 13:33 | Observation (INO) | payer MEDICARE ==
--- NOTE | 2023-04-26 13:57 | ED ---
Syncope HPI - General Stated Complaint: Syncope Time Seen by Provider: 04/26/23 13:40 Source: patient, EMS, RN notes reviewed Mode of arrival: EMS - History of Present Illness Initial Comments: 88-year-old male brought in by EMS history of A. fib hypertension and STEMI: Blood in the past who apparently passed out. Patient does not know what he was noted at that time he denies any pain at this time no loss of function to his upper or lower extremities. Patient reported have A. fib on the monitor by EMS with rates going from 45-112. MD Complaint: loss of consciousness - Related Data Home Medications Medication Instructions Recorded Confirmed Atorvastatin [Lipitor] 20 mg PO DAILY 06/23/21 04/26/23 Tamsulosin [Flomax] 0.4 mg PO DAILY 06/23/21 04/26/23 lisinopriL [Prinivil] 20 mg PO DAILY 06/23/21 04/26/23 Metoprolol Tartrate [Lopressor] 12.5 mg PO DAILY 09/07/22 04/26/23 Rivaroxaban [Xarelto] 15 mg PO W/SUPPER 09/07/22 04/26/23 Citalopram Hydrobromide [CeleXA] 40 mg PO DAILY 04/26/23 04/26/23 amLODIPine [Norvasc] 5 mg PO DAILY 04/26/23 04/26/23 Previous Rx's Medication Instructions Recorded Albuterol Inhaler [Ventolin Hfa 2 puff INHALATION RT-QID PRN #1 inh 09/10/22 Inhaler] Allergies Allergy/AdvReac Type Severity Reaction Status Date / Time No Known Allergies Allergy Verified 04/26/23 17:33 Review of Systems ROS Statement: Those systems with pertinent positive or pertinent negative responses have been documented in the HPI. ROS Other: All systems not noted in ROS Statement are negative. Past Medical History Past Medical History: Hyperlipidemia, Prostate Disorder, Renal Disease Additional Past Medical History / Comment(s): BPH History of Any Multi-Drug Resistant Organisms: None Reported Past Surgical History: No Surgical Hx Reported Past Anesthesia/Blood Transfusion Reactions: No Reported Reaction Past Psychological History: No Psychological Hx Reported Smoking Status: Former smoker Past Alcohol Use History: Occasional Past Drug Use History: None Reported General Exam - General Exam Comments Initial Comments: This a well-developed well-nourished lethargic male who is awake alert oriented 4 General appearance: alert, in no apparent distress Head exam: Present: atraumatic, normocephalic, normal inspection Eye exam: Present: normal appearance, PERRL, EOMI. Absent: scleral icterus, conjunctival injection, periorbital swelling ENT exam: Present: mucous membranes dry Neck exam: Present: normal inspection, full ROM, other (No stridor JVD or bruits). Absent: tenderness, meningismus, lymphadenopathy Respiratory exam: Present: normal lung sounds bilaterally. Absent: respiratory distress, wheezes, rales, rhonchi, stridor Cardiovascular Exam: Present: regular rate, normal rhythm, normal heart sounds. Absent: systolic murmur, diastolic murmur, rubs, gallop, clicks GI/Abdominal exam: Present: soft, normal bowel sounds. Absent: distended, tenderness, guarding, rebound, rigid Extremities exam: Present: normal inspection, full ROM, normal capillary refill. Absent: tenderness, pedal edema, joint swelling, calf tenderness Back exam: Present: normal inspection Neurological exam: Present: alert, oriented X3, CN II-XII intact Psychiatric exam: Present: normal affect, normal mood Skin exam: Present: warm, dry, intact, normal color. Absent: rash Course Vital Signs 04/26/23 04/26/23 04/26/23 13:58 14:04 15:04 Temperature 98.1 F Pulse Rate 55 L 68 76 Respiratory 18 18 18 Rate Blood Pressure 125/82 110/95 127/68 O2 Sat by Pulse 97 88 L 96 Oximetry 04/26/23 04/26/23 04/26/23 16:00 18:00 18:27 Temperature Pulse Rate 70 66 70 Respiratory 18 18 18 Rate Blood Pressure 126/77 128/104 147/76 O2 Sat by Pulse 92 L 97 92 L Oximetry - Reevaluation(s) Reevaluation #1: 04/26/23 14:00 Today's EKG here with one dated showing no acute changes I did interpret this. EKG Findings - EKG Results: EKG: interpreted by ERMD (EKG interpreted by me it or fibrillation rate 62 QRS duration 90 QT since QTC 11/24/1934/441 nonspecific T-wave configuration no evidence of acute changes) Medical Decision Making - Medical Decision Making I did discuss findings with patient and with his son was present patient is feeling improved he did have syncopal episode with no trauma reported he slumped overall and sounds presents. Patient will be admitted for inpatient evaluation for syncope. I did discuss the case with Dr. Montenegro. Was pt. sent in by a medical professional or institution (, LARRY, WAREHOUSE ORDER SELECTOR, urgent care, hospital, or correction...) When possible be specific @ -No Did you speak to anyone other than the patient for history (EMS, parent, family, police, friend...)? What history was obtained from this source @ -Paramedics, family Did you review nursing and triage notes (agree or disagree)? Why? @ -I reviewed and agree with nursing and triage notes Were old charts reviewed (outside hosp., previous admission, EMS record, old EKG, old radiological studies, urgent care reports/EKG's, correction records)? Report findings @ -04/06/23 old charts were reviewed Differential Diagnosis (chest pain, altered mental status, abdominal pain women, abdominal pain men, vaginal bleeding, weakness, fever, dyspnea, syncope, headache, dizziness, GI bleed, back pain, seizure, CVA, palpatations, mental health, musculoskeletal)? @ -Syncope EKG interpreted by me (3pts min.). @ -As above interpreted by me atrial fibrillation rate 62 QRS 98 QT since QTC 435/441 nonspecific T-wave configuration this is compared to an EKG dated showing similar configuration X-rays interpreted by me (1pt min.). @ -Interpreted by me no acute process CT interpreted by me (1pt min.). @ -None done U/S interpreted by me (1pt. min.). @ -None done What testing was considered but not performed or refused? (CT, X-rays, U/S, labs)? Why? @ -None What meds were considered but not given or refused? Why? @ -None Did you discuss the management of the patient with other professionals (professionals i.e. , LARRY, WAREHOUSE ORDER SELECTOR, lab, RT, psych nurse, social insurance analyst, network cable installer, teacher, mortgage loan officer originator, casework specialist)? Give summary @ -Dr. Montenegro Was smoking cessation discussed for >3mins.? @ -No Was critical care preformed (if so, how long)? @ -No Were there social determinants of health that impacted care today? How? (Homelessness, low income, unemployed, alcoholism, drug addiction, transportation, low edu. Level, literacy, decrease access to med. care, retirement, rehab)? @ -No Was there de-escalation of care discussed even if they declined (Discuss DNR or withdrawal of care, Hospice)? DNR status @ -No What co-morbidities impacted this encounter? (DM, HTN, Smoking, COPD, CAD, Cancer, CVA, ARF, Chemo, Hep., AIDS, mental health diagnosis, sleep apnea, morbid obesity)? @ -Atrial fibrillation, hypertension, history of an STEMI, hyperlipidemia, r enal disease Was patient admitted / discharged? Hospital course, mention meds given and route, prescriptions, significant lab abnormalities, going to OR and other pertinent info. @ -hospital course patient was admitted for inpatient evaluation Undiagnosed new problem with uncertain prognosis? @ -Syncope Drug Therapy requiring intensive monitoring for toxicity (Heparin, Nitro, Insulin, Cardizem)? @ -No Were any procedures done? @ -No Diagnosis/symptom? @ -Acute syncopal episode, chronic atrial fibrillation Acute, or Chronic, or Acute on Chronic? @ -Acute Uncomplicated (without systemic symptoms) or Complicated (systemic symptoms)? @ -Complicated Side effects of treatment? @ -No Exacerbation, Progression, or Severe Exacerbation? @ -No Poses a threat to life or bodily function? How? (Chest pain, [place], [place], pneumonia, PE, COPD, DKA, ARF, appy, cholecystitis, CVA, Diverticulitis, Homicidal, Suicidal, threat to staff... and all critical care pts) @ -S, syncope - Lab Data Result diagrams: 04/26/23 14:24 04/26/23 14:24 Lab Results 04/26/23 04/26/23 04/26/23 Range/Units 14:24 14:24 14:24 WBC 7.8 (3.8-10.6) k/uL RBC 3.97 L (4.30-5.90) m/uL Hgb 13.0 (13.0-17.5) gm/dL Hct 38.4 L (39.0-53.0) % MCV 96.8 (80.0-100.0) fL MCH 32.8 (25.0-35.0) pg MCHC 34.0 (31.0-37.0) g/dL RDW 12.9 (11.5-15.5) % Plt Count 210 (150-450) k/uL MPV 7.8 Neutrophils % 77 % Lymphocytes % 13 % Monocytes % 5 % Eosinophils % 3 % Basophils % 0 % Neutrophils # 6.0 (1.3-7.7) k/uL Lymphocytes # 1.1 (1.0-4.8) k/uL Monocytes # 0.4 (0-1.0) k/uL Eosinophils # 0.3 (0-0.7) k/uL Basophils # 0.0 (0-0.2) k/uL PT 13.2 H (9.0-12.0) sec INR 1.3 H (<1.2) APTT 21.7 L (22.0-30.0) sec D-Dimer 0.44 (<0.60) mg/L FEU Sodium 140 (137-145) mmol/L Potassium 4.5 (3.5-5.1) mmol/L Chloride 110 H (98-107) mmol/L Carbon Dioxide 23 (22-30) mmol/L Anion Gap 7 mmol/L BUN 20 (9-20) mg/dL Creatinine 1.42 H (0.66-1.25) mg/dL Est GFR (CKD-EPI)AfAm 51 (>60 ml/min/1.73 sqM) Est GFR (CKD-EPI)NonAf 44 (>60 ml/min/1.73 sqM) Glucose 101 H (74-99) mg/dL Calcium 8.8 (8.4-10.2) mg/dL Magnesium 1.8 (1.6-2.3) mg/dL Total Bilirubin 0.8 (0.2-1.3) mg/dL AST 25 (17-59) U/L ALT 21 (4-49) U/L Alkaline Phosphatase 105 (38-126) U/L Creatine Kinase 66 (55-170) U/L Troponin I (0.000-0.034) ng/mL Total Protein 6.4 (6.3-8.2) g/dL Albumin 3.5 (3.5-5.0) g/dL Urine Color Urine Appearance (Clear) Urine pH (5.0-8.0) Ur Specific Nelson (1.001-1.035) Urine Protein (Negative) Urine Glucose (UA) (Negative) Urine Ketones (Negative) Urine Blood (Negative) Urine Nitrite (Negative) Urine Bilirubin (Negative) Urine Urobilinogen (<2.0) mg/dL Ur Leukocyte Esterase (Negative) Urine RBC (0-5) /hpf Urine WBC (0-5) /hpf Ur Squamous Epith Cells (0-4) /hpf Hyaline Casts (0-2) /lpf Urine Mucus (None) /hpf 04/26/23 04/26/23 Range/Units 14:24 14:24 WBC (3.8-10.6) k/uL RBC (4.30-5.90) m/uL Hgb (13.0-17.5) gm/dL Hct (39.0-53.0) % MCV (80.0-100.0) fL MCH (25.0-35.0) pg MCHC (31.0-37.0) g/dL RDW (11.5-15.5) % Plt Count (150-450) k/uL MPV Neutrophils % % Lymphocytes % % Monocytes % % Eosinophils % % Basophils % % Neutrophils # (1.3-7.7) k/uL Lymphocytes # (1.0-4.8) k/uL Monocytes # (0-1.0) k/uL Eosinophils # (0-0.7) k/uL Basophils # (0-0.2) k/uL PT (9.0-12.0) sec INR (<1.2) APTT (22.0-30.0) sec D-Dimer (<0.60) mg/L FEU Sodium (137-145) mmol/L Potassium (3.5-5.1) mmol/L Chloride (98-107) mmol/L Carbon Dioxide (22-30) mmol/L Anion Gap mmol/L BUN (9-20) mg/dL Creatinine (0.66-1.25) mg/dL Est GFR (CKD-EPI)AfAm (>60 ml/min/1.73 sqM) Est GFR (CKD-EPI)NonAf (>60 ml/min/1.73 sqM) Glucose (74-99) mg/dL Calcium (8.4-10.2) mg/dL Magnesium (1.6-2.3) mg/dL Total Bilirubin (0.2-1.3) mg/dL AST (17-59) U/L ALT (4-49) U/L Alkaline Phosphatase (38-126) U/L Creatine Kinase (55-170) U/L Troponin I <0.012 (0.000-0.034) ng/mL Total Protein (6.3-8.2) g/dL Albumin (3.5-5.0) g/dL Urine Color Yellow Urine Appearance Clear (Clear) Urine pH 5.0 (5.0-8.0) Ur Specific Nelson 1.018 (1.001-1.035) Urine Protein Negative (Negative) Urine Glucose (UA) Negative (Negative) Urine Ketones Negative (Negative) Urine Blood Negative (Negative) Urine Nitrite Negative (Negative) Urine Bilirubin Negative (Negative) Urine Urobilinogen <2.0 (<2.0) mg/dL Ur Leukocyte Esterase Trace H (Negative) Urine RBC 1 (0-5) /hpf Urine WBC 1 (0-5) /hpf Ur Squamous Epith Cells <1 (0-4) /hpf Hyaline Casts 1 (0-2) /lpf Urine Mucus Few H (None) /hpf - Radiology Data Interpreted by me: History by me no acute findings Disposition Clinical Impression: Syncope and collapse, Atrial fibrillation Disposition: ADMITTED IP TO THIS [facility] Condition: Stable Referrals: Donell Caraballo MD [Primary Care Provider] - 1-2 days Decision Date: 04/26/23 Decision Time: 18:30
[2023-04-26 14:41] LABS: Basophils % (A) 0 %; Eosinophils # (A) 0.3 k/uL (0-0.7); Eosinophils % (A) 3 %; HCT 38.4 % (39.0-53.0); Lymphocytes # (A) 1.1 k/uL (1.0-4.8); Lymphocytes % (A) 13 %; MCH 32.8 pg (25.0-35.0); MCV 96.8 fL (80.0-100.0); Mean Platelet Volume 7.8; Monocytes # (A) 0.4 k/uL (0-1.0); Monocytes % (A) 5 %; Neutrophils % (A) 77 %; Platelet Count 210 k/uL (150-450); RBC 3.97 m/uL (4.30-5.90); RDW 12.9 % (11.5-15.5); WBC 7.8 k/uL (3.8-10.6)
--- NOTE | 2023-04-26 14:44 | XR ---
EXAMINATION TYPE: XR chest 2V DATE OF EXAM: 04/26/2023 2:34 PM COMPARISON: Chest radiographs from 04/06/2023 TECHNIQUE: XR chest 2V Frontal and lateral views of the chest. CLINICAL INDICATION:Male, 88 years old with history of syncope; FINDINGS: Lungs/Pleura: There is no evidence of pleural effusion, focal consolidation, or pneumothorax. Chroni c senescent parenchymal change. Eventration of the anterior right hemidiaphragm redemonstrated. Pulmonary vascularity: Unremarkable. Heart/mediastinum: Cardiomediastinal silhouette is unremarkable. Atherosclerotic calcifications are seen in the aorta. Musculoskeletal: No acute osseous pathology. Degenerative changes of the thoracic spine. IMPRESSION: No acute cardiopulmonary disease/process.
[2023-04-26 15:00] LABS: ALT 21 U/L (4-49); AST 25 U/L (17-59); African American GFR (CKD) 51 (>60 ml/min/1.73 sqM); Albumin 3.5 g/dL (3.5-5.0); Alkaline Phosphatase 105 U/L (38-126); Anion Gap 7 mmol/L; Blood Urea Nitrogen 20 mg/dL (9-20); Calcium 8.8 mg/dL (8.4-10.2); Carbon Dioxide 23 mmol/L (22-30); Chloride 110 mmol/L (98-107); Creatine Kinase 66 U/L (55-170); Glucose 101 mg/dL (74-99); Magnesium 1.8 mg/dL (1.6-2.3); Non-African American GFR(CKD) 44 (>60 ml/min/1.73 sqM); Sodium 140 mmol/L (137-145); Total Bilirubin 0.8 mg/dL (0.2-1.3); Total Protein 6.4 g/dL (6.3-8.2)
[2023-04-26 15:03] LABS: INR 1.3 (<1.2); Prothrombin Time 13.2 sec (9.0-12.0)
[2023-04-26 15:07] LABS: Partial Thromboplastin Time 21.7 sec (22.0-30.0)
[2023-04-26 15:14] LABS: Potassium 4.5 mmol/L (3.5-5.1)
[2023-04-26] MEDS ORDERED: SODIUM CHLORIDE 0.9% 1,000 ML IV ONE (15:18)
[2023-04-26 17:00] LABS: Appearance,Urine Clear (Clear); Bilirubin,Urine Negative (Negative); Blood,Urine Negative (Negative); Color,Urine Yellow; Glucose,Urine (UA) Negative (Negative); Hyaline Casts,Urine 1 /lpf (0-2); Ketones,Urine Negative (Negative); Leukocyte Esterase,Urine Trace (Negative); Mucus,Urine Few /hpf; Nitrite,Urine Negative (Negative); Protein,Urine Negative (Negative); RBC,Urine 1 /hpf (0-5); Specific Gravity,Urine 1.018 (1.001-1.035); Squamous Epithelial Cell,Urine <1 /hpf (0-4); Urobilinogen,Urine <2.0 mg/dL (<2.0); WBC,Urine 1 /hpf (0-5)
[2023-04-26] MEDS ORDERED: SODIUM CHLORIDE 0.9% 500 ML 500 ML IV STA (18:20)
[2023-04-26] MEDS ORDERED: NALOXONE 0.4 MG/ML 1 ML VIAL IV PRN (19:30)
[2023-04-26] MEDS ORDERED: ACETAMINOPHEN TAB 325 MG TAB PO PRN (19:30)
[2023-04-26] MEDS ORDERED: ALBUTEROL NEBULIZED 2.5 MG/3 ML INHALATION PRN (19:31)
[2023-04-26] MEDS: SODIUM CHLORIDE 0.9% 1,000 ML IV SCH (20:08)
--- NOTE | 2023-04-26 21:52 | P.HPIM ---
History of Present Illness H&P Date: 04/26/23 Patient is a 88-year-old male with a PMH of chronic kidney disease, hyperlipidemia, A. fib on xarelto, and hypertension who presented to the emergency room after an episode of syncope. The patient reports he was in his bathroom with his son who is helping him shave when he suddenly lost consciousne ss without any warning signs. The son was able to ease him down to the ground reportedly. He woke up after 30 seconds as per the son and had minimal post ictal confusion. Patient and his family denied head trauma. He denied urinary incontinence or tongue biting. No reports of shaking movements of extremities. He denied experiencing chest discomfort, shortness of breath, diaphoresis, or nausea prior to her shortly after the episode. He reports feeling at his baseline at the time of interview. Upon EMS arrival, as per the documentation the patient's heart rate was ranging from 45-112 bpm. In the emergency room, chest x-ray was unremarkable . EKG showing A. fib at [address]/T-wave changes noted as reviewed by me. Laboratory evaluation revealed a creatinine of 1.42 (previously 1.3 on 09/13) with troponin less than 0.012 and UA unremarkable. ED documentation reviewed and case discussed with ED provider. Review of systems: Pertinent positives and negatives as discussed in HPI, a complete review of systems was performed and all other systems are negative. Physical examination: Vital signs reviewed General: non toxic, no distress, appears younger than stated age, normal weight Derm: no unusual rashes/lesions, warm Head: atraumatic, normocephalic, symmetric Eyes: EOMI, no lid lag, anicteric sclera, pupils equal round reactive to light ENT: Nose and ears atraumatic Neck: No cervical lymphadenopathy, trachea midline, supple Mouth: no lip lesion, mucus membranes moist Cardiovascular: Irregularly irregular, no murmur, positive dorsalis pedis pulse bilateral, no edema Lungs: CTA bilateral, no rhonchi, no rales, no accessory muscle use Abdominal: soft, nontender to palpation, no guarding Ext: muscle strength 5 out of 5 in all 4 extremities grossly, no gross muscle atrophy, no contractures, Neuro: CN II-XI grossly intact, no gross focal neuro deficits Psych: Alert, oriented, appropriate affect Assessment: Syncope, suspect cardiogenic in nature Chronic conditions: A. fib, hypertension, chronic kidney disease Imaging: In the emergency room, chest x-ray was unremarkable . EKG showing A. fib at [address]/T-wave changes noted as reviewed by me. Data Review: Laboratory evaluation revealed a creatinine of 1.42 (previously 1.3 on 09/13) with troponin less than 0.012 and UA unremarkable. Plan: Cardiac monitoring Echocardiogram Fall precautions Trend troponin Continued home medications DVT prophylaxis: Xarelto The patient is admitted with an anticipated less than 2 midnight stay for evaluation of syncope CODE STATUS: Full Code Discussed with: Patient Anticipated discharge place: Home Past Medical History Past Medical History: Hyperlipidemia, Prostate Disorder, Renal Disease Additional Past Medical History / Comment(s): BPH History of Any Multi-Drug Resistant Organisms: None Reported Past Surgical History: No Surgical Hx Reported Past Anesthesia/Blood Transfusion Reactions: No Reported Reaction Past Psychological History: No Psychological Hx Reported Smoking Status: Former smoker Past Alcohol Use History: Occasional Additional Past Alcohol Use History / Comment(s): 1 beer and 1 shot of whiskey a day. stopped smoking 30 years ago Past Drug Use History: None Reported - Past Family History Mother Family Medical History: Hypertension Medications and Allergies Home Medications Medication Instructions Recorded Confirmed Type Atorvastatin [Lipitor] 20 mg PO DAILY 06/23/21 04/26/23 History Tamsulosin [Flomax] 0.4 mg PO DAILY 06/23/21 04/26/23 History lisinopriL [Prinivil] 20 mg PO DAILY 06/23/21 04/26/23 History Metoprolol Tartrate [Lopressor] 12.5 mg PO DAILY 09/07/22 04/26/23 History Rivaroxaban [Xarelto] 15 mg PO W/SUPPER 09/07/22 04/26/23 History Albuterol Inhaler [Ventolin Hfa 2 puff INHALATION RT-QID PRN #1 inh 09/10/22 04/26/23 Rx Inhaler] Citalopram Hydrobromide [CeleXA] 40 mg PO DAILY 04/26/23 04/26/23 History amLODIPine [Norvasc] 5 mg PO DAILY 04/26/23 04/26/23 History Allergies Allergy/AdvReac Type Severity Reaction Status Date / Time No Known Allergies Allergy Verified 04/26/23 17:33 Physical Exam Vitals: Vital Signs Temp Pulse Resp BP Pulse Ox 04/26/23 20:00 68 18 121/84 94 L 04/26/23 19:00 74 18 109/81 92 L 04/26/23 18:27 70 18 147/76 92 L 04/26/23 18:00 64 18 128/88 94 L 04/26/23 17:00 57 L 120/106 82 L 04/26/23 16:00 70 18 122/82 96 04/26/23 15:04 76 18 127/68 96 04/26/23 15:00 63 110/95 96 04/26/23 14:04 68 18 110/95 88 L 04/26/23 13:58 98.1 F 55 L 18 125/82 97 Intake and Output 04/26/23 04/26/23 04/26/23 06:59 14:59 22:59 Other: Weight 90.718 kg 90.718 kg Results CBC & Chem 7: 04/26/23 14:24 04/26/23 14:24 Labs: Abnormal Lab Results - Last 24 Hours (Table) 04/26/23 04/26/23 04/26/23 Range/Units 14:24 14:24 14:24 RBC 3.97 L (4.30-5.90) m/uL Hct 38.4 L (39.0-53.0) % PT 13.2 H (9.0-12.0) sec INR 1.3 H (<1.2) APTT 21.7 L (22.0-30.0) sec Chloride 110 H (98-107) mmol/L Creatinine 1.42 H (0.66-1.25) mg/dL Glucose 101 H (74-99) mg/dL Ur Leukocyte Esterase (Negative) Urine Mucus (None) /hpf 04/26/23 Range/Units 14:24 RBC (4.30-5.90) m/uL Hct (39.0-53.0) % PT (9.0-12.0) sec INR (<1.2) APTT (22.0-30.0) sec Chloride (98-107) mmol/L Creatinine (0.66-1.25) mg/dL Glucose (74-99) mg/dL Ur Leukocyte Esterase Trace H (Negative) Urine Mucus Few H (None) /hpf Thrombosis Risk Factor Assmnt - Choose All That Apply Any of the Below Risk Factors Present?: No Other Risk Factors: Yes Each Risk Factor Represents 3 Points: Age 75 years or older Thrombosis Risk Factor Assessment Total Risk Factor Score: 3 Thrombosis Risk Factor Assessment Level: Moderate Risk
--- NOTE | 2023-04-27 04:07 | CT ---
EXAMINATION TYPE: CT brain wo con DATE OF EXAM: 04/26/2023 COMPARISON: 08/24/2016 INDICATION: syncope DLP: 1163 mGycm, Automated exposure control for dose reduction was used. CONTRAST: None CT of the brain is performed utilizing 3 mm thick sections through the posterior fossa and 3 mm thick sections through the remaining calvarium. Study is performed within 24 hours of arrival to the hosp ital. No abnormal hyperdensity is present to suggest an acute intracranial hemorrhage. No mass lesion is evident. No acute infarcts are evident. There is periventricular white matter hypodensity, likely on the basis of chronic white matter ischemic changes. Ventricles and sulci are prominent for the patient age. There is an air-fluid level within the left maxillary sinus. A few retention cysts are within the rig ht maxillary sinus. There is mucosal thickening within the mid left ethmoid air cell. Remaining paran finn sinuses and mastoid air cells are clear IMPRESSIONS: 1. Atrophy with chronic appearing periventricular white matter ischemic changes. 2. Clinical correlation recommended for acute left maxillary sinusitis.
[2023-04-27] MEDS: TAMSULOSIN 0.4 MG CAP.ER.24H PO SCH (08:16)
[2023-04-27] MEDS: ATORVASTATIN 20 MG TAB PO SCH (08:16)
[2023-04-27] MEDS: CITALOPRAM HYDROBROMIDE 20 MG TAB PO SCH (08:16)
[2023-04-27] MEDS: METOPROLOL TARTRATE 12.5 MG TAB PO SCH (08:16)
[2023-04-27] MEDS: lisinopriL 20 MG TAB PO SCH (08:16)
[2023-04-27] MEDS: amLODIPine 5 MG TAB PO SCH (08:16)
[2023-04-27 12:57] VITALS: RESP 18
--- NOTE | 2023-04-27 13:35 | CONS ---
CONSULTATION CHIEF COMPLAINT: Near syncope. HISTORY OF PRESENT ILLNESS: This is an 88-year-old gentleman with history of permanent atrial fibrillation, hypertension and COPD who presented to hospital having had an episode of near syncope. The patient states that he felt dizzy, unwell and apparently had passed out. He does not have any focal neurological deficits. Did not have any injuries. Did not have bladder or bowel incontinence and there is no history of seizures. He is in atrial fibrillation with controlled ventricular rate and had been stable hemodynamically. Troponins have been negative. An echocardiogram is pending at this time. He did not have any documented tachy or tani arrhythmias. PAST MEDICAL HISTORY: Significant for permanent atrial fibrillation, hypertension, dyslipidemia and COPD. MEDICATIONS: Include, 1. Lopressor 12.5 mg daily. 2. Celexa. 3. Amlodipine 5 mg daily. 4. Lisinopril 20 daily. 5. Xarelto 15 daily. 6. Lipitor. 7. Ventolin. ALLERGIES: There are no known drug allergies. FAMILY HISTORY: Negative for premature coronary artery disease. SOCIAL HISTORY: Negative for smoking, chews, or drug abuse. REVIEW OF SYSTEMS: A review of systems has been performed. Pertinents are as documented. PHYSICAL EXAMINATION: GENERAL: Comfortable at rest. VITAL SIGNS: Stable. NECK: There is jugular venous distention. Carotid upstroke is normal. There is no bruit. CHEST: Reveals good air entry bilaterally. HEART: Reveals first and second heart sounds. Irregular rhythm and a systolic murmur at the apex. ABDOMEN: Soft. EXTREMITIES: Exam of extremities did not reveal any edema. Peripheral pulses are felt. ASSESSMENT: Syncope, rule out cardiac causes. PLAN: I will obtain a 2D echo. Watch him on telemetry. Obtain the orthostatics. MMODL / IJN: [id number] /
--- NOTE | 2023-04-27 14:58 | P.PN ---
Subjective Progress Note Date: 04/27/23 Patient is a 88-year-old male with a PMH of chronic kidney disease, hyperlipidemia, A. fib on xarelto, and hypertension who presented to the emergency room after an episode of syncope. The patient reports he was in his bathroom with his son who is helping him shave when he suddenly lost consciousness without any warning signs. The son was able to ease him down to the ground reportedly. He woke up after 30 seconds as per the son and had minimal post ictal confusion. Patient and his family denied head trauma. He denied urinary incontinence or tongue biting. No reports of shaking movements of extremities. He denied experiencing chest discomfort, shortness of breath, diaphoresis, or nausea prior to her shortly after the episode. He reports feeling at his baseline at the time of interview. Upon EMS arrival, as per the documentation the patient's heart rate was ranging from 45-112 bpm. In the emergency room, chest x-ray was unremarkable . EKG showing A. fib at [address]/T-wave changes. Laboratory evaluation revealed a creatinine of 1.42 (previously 1.3 on 09/13) with troponin less than 0.012 and UA unremarkable. 04/27 Patient was seen and examined. No acute events overnight. Patient reports feeling at baseline. He denies any dizziness, chest pain, shortness breath or palpitations. Apparently had a syncopal episode without any prodrome. Most recent BP is 112/66 with heart rate of 55. Troponin is less than 0.0122, 0.015. General: non toxic, no distress, normal weight Derm: no unusual rashes/lesions, warm Head: atraumatic, normocephalic, symmetric Eyes: EOMI, no lid lag, anicteric sclera ENT: Nose and ears atraumatic Neck: No cervical lymphadenopathy, trachea midline, supple Cardiovascular: Irregularly irregular, no murmur, no edema Lungs: CTA bilateral, no rhonchi, no rales, no accessory muscle use Ext: muscle strength 5 out of 5 in all 4 extremities grossly, no gross muscle atrophy, no contractures, Neuro: no gross focal neuro deficits Psych: Alert, oriented, appropriate affect Syncope, suspect cardiogenic in nature Chronic conditions: A. fib, hypertension, chronic kidney disease Based on my assessment of this patient, this patient meets a moderate complexity level of care. Patient has a new diagnosis of syncope with uncertain prognosis. Without a prodrome, there is concerns for syncope due to cardiac cause. Troponins have been trended and ACS has been ruled out. He'll be continued on telemetry monitoring. Orthostatic vitals ordered. Fall precautions ordered. Echocardiogram ordered. Cardiology consulted. PT consult to work with this patient. I have reviewed the following consultant electronics notes: I have reviewed the results of the following tests: Troponin as above. I have ordered the following tests: Echocardiogram. I have discussed the care of this patient with the following independent historian: I have independently interpreted the following test below: I have discussed the management of this patient with the following physician: Objective - Vital Signs Vital signs: Vital Signs Temp 99.0 F 04/27/23 08:12 Pulse 58 L 04/27/23 14:38 Resp 18 04/27/23 14:38 BP 112/66 04/27/23 12:56 Pulse Ox 96 04/27/23 12:56 FiO2 Intake & Output 04/26/23 04/27/23 04/27/23 18:59 06:59 18:59 Intake Total 350 Output Total 600 325 Balance -600 25 Weight 90.718 kg 90.718 kg Intake: Oral 350 Output: Urine 600 325 Other: Voiding Method Urinal Urinal # Voids 1 - Labs CBC & Chem 7: 04/26/23 14:24 04/26/23 14:24 Labs: Abnormal Lab Results - Last 24 Hours (Table) 04/26/23 04/26/23 04/26/23 Range/Units 14:24 14:24 14:24 PT 13.2 H (9.0-12.0) sec INR 1.3 H (<1.2) APTT 21.7 L (22.0-30.0) sec Chloride 110 H (98-107) mmol/L Creatinine 1.42 H (0.66-1.25) mg/dL Glucose 101 H (74-99) mg/dL Ur Leukocyte Esterase Trace H (Negative) Urine Mucus Few H (None) /hpf
--- NOTE | 2023-04-27 17:00 | CA ---
Transthoracic Echo Report Name: Steven Barber Age: 88 Gender: M : 1935 Exam Date: 04/27/2023 07:33 Exam Location: [facility] Ht (in): 69 Wt (lb): 200 Ordering Physician: Arielle Montenegro MD Attending/Referring Phys: Painting Trades Worker Rosa Maria FARR Procedure CPT: Indications: Syncope Cardiac Hx: Technical Quality: Technically difficult study Contrast 1: Total Dose (mL): Contrast 2: Total Dose (mL): MEASUREMENTS (Male / Female) Normal Values 2D ECHO LV Diastolic Diameter PLAX 4.5 cm 4.2 - 5.9 / 3.9 - 5.3 cm LV Systolic Diameter PLAX 3.1 cm IVS Diastolic Thickness 1.2 cm 0.6 - 1.0 / 0.6 - 0.9 cm LVPW Diastolic Thickness 1.2 cm 0.6 - 1.0 / 0.6 - 0.9 cm LV Relative Wall Thickness 0.5 M-MODE Aortic Root Diameter MM 3.2 cm LA Systolic Diameter MM 4.3 cm LA Ao Ratio MM 1.3 AV Cusp Separation MM 1.6 cm DOPPLER AV Peak Velocity 149.3 cm/s AV Peak Gradient 8.9 mmHg AV Mean Velocity 103.2 cm/s AV Mean Gradient 4.8 mmHg AV Velocity Time Integral 28.9 cm LVOT Peak Velocity 127.8 cm/s LVOT Peak Gradient 6.5 mmHg LVOT Velocity Time Integral 25.0 cm LV E' Lateral Velocity 11.5 cm/s LV E' Septal Velocity 8.3 cm/s Right Atrial Pressure 8.0 mmHg FINDINGS Left Ventricle Mildly increased left ventricular wall thickness. Mild concentric left ventricular hypertrophy. Left ventricular cavity size normal. No obvious regional wall motion abnormalities. Left ventricular ejection fraction is estimated at 50-55%. Right Ventricle Normal right ventricular size and function. Right Atrium Normal right atrial size. Left Atrium Normal left atrial size. Mitral Valve Structurally normal mitral valve. Mitral valve thickened. Mild mitral annular calcification. Aortic Valve Aortic valve not well visualized. Aortic valve sclerosis. [id number] aortic regurgitation. Tricuspid Valve Tricuspid valve not well visualized. Pulmonic Valve Pulmonic valve not well visualized. Pericardium No pericardial effusion. Aorta Normal size aortic root. CONCLUSIONS Normal LV function Mild to moderate aortic regurgitation Previewed by: Dr. Ramírez Cao MD (Electronically Signed) Final Date: 27 April 2023 16:59
[2023-04-27] MEDS: SODIUM CHLORIDE 0.9% 1,000 ML IV SCH (17:13)
[2023-04-27] MEDS ORDERED: RIVAROXABAN 15 MG TAB PO SCH (17:30)
[2023-04-28 03:38] VITALS: TEMP 97.8
[2023-04-28] MEDS: SODIUM CHLORIDE 0.9% 1,000 ML IV SCH ×2 (05:11→12:01)
[2023-04-28] MEDS: ATORVASTATIN 20 MG TAB PO SCH (07:57)
[2023-04-28] MEDS: CITALOPRAM HYDROBROMIDE 20 MG TAB PO SCH (07:57)
[2023-04-28] MEDS: TAMSULOSIN 0.4 MG CAP.ER.24H PO SCH (07:57)
[2023-04-28] MEDS: lisinopriL 20 MG TAB PO SCH (07:57)
[2023-04-28] MEDS: METOPROLOL TARTRATE 12.5 MG TAB PO SCH (07:57)
[2023-04-28] MEDS: amLODIPine 5 MG TAB PO SCH (07:57)
[2023-04-28 11:59] VITALS: BP 149/71; PULSE 68
--- NOTE | 2023-04-28 12:21 | P.DS ---
Providers Date of admission: 04/26/23 19:30 Expected date of discharge: 04/28/23 Attending physician: Arielle Montenegro MD Consults: 04/27/23 08:30 Consult Physician Routine Consulting Provider: Ramírez Cao Consult Reason/Comments: syncope Do you want consulting provider notified?: Yes Primary care physician: Donell Caraballo MD Hospital Course: Patient is a 88-year-old male with a PMH of chronic kidney disease, hyperlipidemia, A. fib on xarelto, and hypertension who presented to the emergency room after an episode of syncope. The patient reports he was in his bathroom with his son who is helping him shave when he suddenly lost consciousness without any warning signs. The son was able to ease him down to the ground reportedly. He woke up after 30 seconds as per the son and had minimal post ictal confusion. Patient and his family denied head trauma. He denied urinary incontinence or tongue biting. No reports of shaking movements of extremities. He denied experiencing chest discomfort, shortness of breath, diaphoresis, or nausea prior to her shortly after the episode. He reports feeling at his baseline at the time of interview. Upon EMS arrival, as per the documentation the patient's heart rate was ranging from 45-112 bpm. In the emergency room, chest x-ray was unremarkable . EKG showing A. fib at [address]/T-wave changes. Laboratory evaluation revealed a creatinine of 1.42 (previously 1.3 on 09/13) with troponin less than 0.012 and UA unremarkable. 04/27 Patient was seen and examined. No acute events overnight. Patient reports feeling at baseline. He denies any dizziness, chest pain, shortness breath or palpitations. Apparently had a syncopal episode without any prodrome. Most recent BP is 112/66 with heart rate of 55. Troponin is less than 0.0122, 0.015. 04/28 Patient was seen and examined. He reported no complaints. He denied any chest pain, shortness breath, palpitations or dizziness. Most recent BP is 149/71 with heart rate of 68. His orthostats were mildly positive yesterday and are negative today. He was hydrated overnight with normal saline at 75 mL per hour. Echocardiogram was done which showed EF of 50-55% with AR. Case was discussed with Yael SURVEYING TEACHER, patient was cleared for discharge, should resume all medication and follow-up with Dr. Hickman in 1 week. Pertinent studies include chest x-ray, brain CT, echocardiogram. General: non toxic, no distress, normal weight Derm: no unusual rashes/lesions, warm Head: atraumatic, normocephalic, symmetric Eyes: EOMI, no lid lag, anicteric sclera ENT: Nose and ears atraumatic Neck: No cervical lymphadenopathy, trachea midline, supple Cardiovascular: Irregularly irregular, no murmur, no edema Lungs: CTA bilateral, no rhonchi, no rales, no accessory muscle use Ext: muscle strength 5 out of 5 in all 4 extremities grossly, no gross muscle atrophy, no contractures, Neuro: no gross focal neuro deficits Psych: Alert, oriented, appropriate affect Discharge diagnoses Syncope, suspect orthostatic hypotension Bradycardia Chronic conditions: A. fib, hypertension, chronic kidney disease This complex discharge took 35 minutes to complete. Patient Condition at Discharge: Stable Plan - Discharge Summary Discharge Rx Participant: No New Discharge Prescriptions: Continue lisinopriL [Prinivil] 20 mg PO DAILY Rivaroxaban [Xarelto] 15 mg PO W/SUPPER Metoprolol Tartrate [Lopressor] 12.5 mg PO DAILY Citalopram Hydrobromide [CeleXA] 40 mg PO DAILY amLODIPine [Norvasc] 5 mg PO DAILY Atorvastatin [Lipitor] 20 mg PO DAILY Tamsulosin [Flomax] 0.4 mg PO DAILY Albuterol Inhaler [Ventolin Hfa Inhaler] 2 puff INHALATION RT-QID PRN #1 inh PRN Reason: Shortness Of Breath Or Wheezing Discharge Medication List Atorvastatin [Lipitor] 20 mg PO DAILY 06/23/21 [History] Tamsulosin [Flomax] 0.4 mg PO DAILY 06/23/21 [History] lisinopriL [Prinivil] 20 mg PO DAILY 06/23/21 [History] Metoprolol Tartrate [Lopressor] 12.5 mg PO DAILY 09/07/22 [History] Rivaroxaban [Xarelto] 15 mg PO W/SUPPER 09/07/22 [History] Albuterol Inhaler [Ventolin Hfa Inhaler] 2 puff INHALATION RT-QID PRN #1 inh 09/10/22 [Rx] Citalopram Hydrobromide [CeleXA] 40 mg PO DAILY 04/26/23 [History] amLODIPine [Norvasc] 5 mg PO DAILY 04/26/23 [History] Follow up Appointment(s)/Referral(s): Amanuel Hickman MD [STAFF PHYSICIAN] - 1 Week Donell Caraballo MD [Primary Care Provider] - 1-2 days Discharge Disposition: HOME SELF-CARE
--- NOTE | 2023-04-28 12:42 | P.PN ---
Subjective Progress Note Date: 04/28/23 History of present illness: This is a an 88-year-old male patient of Dr. Hickman with past history of permanent atrial fibrillation, hypertension, COPD. Patient came in due to near syncopal episode. Patient felt dizzy and unwell apparently passed out. He had no focal neurological deficits. No loss of bladder or bowel. No history of seizure disorders. Patient is seen today in follow-up. Orthostatic vital signs have been negative. He denies having any lightheadedness or dizziness. He states he is ambulated in his room. Echocardiogram reveals normal LV function, mild to moderate aortic regurgitation. Physical examination: Gen: This is an 88-year-old male resting in bed and appears to be comfortable and in no acute distress. VS: reviewed HEENT: Head is atraumatic, normocephalic. Pupils equal, round. Sclerae is anicteric. LUNGS: Clear to auscultation. No wheezes or rhonchi. No intercostal retractions. HEART: Irregular rate and rhythm. Systolic murmur. ABDOMEN: Soft No tenderness. EXTREMITIES: No pedal edema. No calf tenderness. NEUROLOGICAL: Patient is awake, alert. Assessment: Syncope Plan: Patient is cleared for discharge, and may follow-up with Dr. Hickman in 1 week Nurse practitioner note has been reviewed, I agree with documented findings and plan of care. Patient was seen and examined. Objective - Vital Signs Vital signs: Vital Signs Temp 97.8 F 04/28/23 03:34 Pulse 64 04/28/23 10:00 Resp 18 04/28/23 10:00 BP 155/82 04/28/23 07:56 Pulse Ox 95 04/28/23 07:56 FiO2 Intake & Output 04/27/23 04/28/23 04/28/23 18:59 06:59 18:59 Intake Total 460 927 240 Output Total 325 900 750 Balance 135 27 -510 Intake: Intake, IV Titration 927 Amount Sodium Chloride 0.9% 1, 927 000 ml @ 75 mls/hr IV . [id number] CHRISTO Rx#:[id number] Oral 460 240 Output: Urine 325 900 750 Other: Voiding Method Urinal Toilet Urinal Urinal # Voids 1 1 # Bowel Movements 1 - Labs CBC & Chem 7: 04/26/23 14:24 04/26/23 14:24
== END 2023-04-28 14:56 | disposition home or self-care (01) ==
LOC: EC 13:33 → 3SCARD 19:30
PROVIDERS: ADMIT Internal Medicine; ATTEND Internal Medicine
DX: R55 Syncope and collapse (principal); I95.9 Hypotension, unspecified; I35.1 Nonrheumatic aortic (valve) insufficiency; R00.1 Bradycardia, unspecified; I48.21 Permanent atrial fibrillation; E78.5 Hyperlipidemia, unspecified; J44.9 Chronic obstructive pulmonary disease, unspecified; I12.9 Hypertensive chronic kidney disease with stage 1 through stage 4 chronic kidney disease, or unspecified chronic kidney disease; N18.9 Chronic kidney disease, unspecified; N40.0 Benign prostatic hyperplasia without lower urinary tract symptoms; Z87.891 Personal history of nicotine dependence; Z82.49 Family history of ischemic heart disease and other diseases of the circulatory system; Z79.01 Long term (current) use of anticoagulants; Z79.899 Other long term (current) drug therapy
CPT/HCPCS: 96361 ×2; 96360; 99285; 36415; 94760; 93005; 93306; 85379; 80053; 82550; 83735; 84484 ×2; 85025; 85610; 85730; 81001; 71046; 70450; G0378 ×3

== ENCOUNTER → 2023-05-16 | Outpatient (CLI) | payer MEDICARE ==
--- NOTE | 2023-05-16 11:36 | US ---
EXAMINATION TYPE: US carotid duplex BILAT DATE OF EXAM: 05/16/2023 COMPARISON: NONE CLINICAL INDICATION: Male, 88 years old with history of R55 SYNCOPE AND COLLAPSE; Syncope TECHNIQUE: Carotid duplex ultrasound examination. Indirect Doppler criteria was utilized. FINDINGS: EXAM MEASUREMENTS: RIGHT: Peak Systolic Velocity (PSV) cm/sec ----- Right CCA: 108.4 ----- Right ICA: 55.2 ----- Right ECA: 105.5 ICA/CCA ratio: 0.8 RIGHT: End Diastole cm/sec ----- Right CCA: 22.7 ----- Right ICA: 22.5 ----- Right ECA: 19.8 LEFT: Peak Systolic Velocity (PSV) cm/sec ----- Left CCA: 99.1 ----- Left ICA: 62.9 ----- Left ECA: 90.1 ICA/CCA ratio: 1.0 LEFT: End Diastole cm/sec ----- Left CCA: 20.2 ----- Left ICA: 20.2 ----- Left ECA: 15.0 VERTEBRALS (direction of flow): Right Vertebral: Antegrade Left Vertebral: Antegrade Rhythm: BUFFER AUTOMATIC NOTES: Mild plaque formation noted left carotid bulb and left internal carotid artery. IMPRESSION: No evidence for edema dynamically significant stenosis. Criteria for Assigning % of Stenosis / Diameter reduction (Estimation based on the indirect measurements of the internal carotid artery velocities (ICA PSV). 1. Normal (no stenosis)=ICA PSV < 125 cm/s: ratio < 2.0: ICA EDV<40 cm/s. 2. Less than 50% stenosis=ICA PSV < 125 cm/s: ratio < 2.0: ICA EDV<40 cm/s. 3. 50 to 69% stenosis=ICA PSV of 125 to 230 cm/s: ration 2.0 ? 4.0: ICA EDV 40-100 cm/s. 4. Greater than 70% stenosis to near occlusion= ICA PSV > 230 cm/s: ratio > 4.0: ICA EDV > 100 cm/s. 5. Near occlusion= ICA PSV velocities may be low or undetectable: variable ratio and ICA EDV. 6. Total occlusion=unable to detect flow.
== END | disposition home or self-care (01) ==
LOC: RADUSWWP 10:59
PROVIDERS: ATTEND Family Medicine
DX: R55 Syncope and collapse (principal)
CPT/HCPCS: 93880

== ENCOUNTER 2023-10-17 07:09 | Inpatient (IN) | payer MEDICARE ==
[2023-10-17 07:46] LABS: Basophils % (A) 0 %; Eosinophils # (A) 0.1 k/uL (0-0.7); Eosinophils % (A) 1 %; HCT 40.1 % (39.0-53.0); HGB 13.4 gm/dL (13.0-17.5); Lymphocytes # (A) 1.4 k/uL (1.0-4.8); Lymphocytes % (A) 15 %; MCH 32.6 pg (25.0-35.0); MCHC 33.4 g/dL (31.0-37.0); MCV 97.3 fL (80.0-100.0); Mean Platelet Volume 7.6; Monocytes # (A) 0.7 k/uL (0-1.0); Monocytes % (A) 7 %; Neutrophils # (A) 6.9 k/uL (1.3-7.7); Neutrophils % (A) 75 %; Platelet Count 238 k/uL (150-450); RBC 4.12 m/uL (4.30-5.90); RDW 12.9 % (11.5-15.5); WBC 9.2 k/uL (3.8-10.6)
--- NOTE | 2023-10-17 07:47 | ED ---
General Adult HPI - General Stated complaint: Weakness Time Seen by Provider: 10/17/23 07:10 Source: patient Mode of arrival: EMS Limitations: no limitations - History of Present Illness Initial comments: Dictation was produced using [employer] dictation software. please excuse any gram matical, word or spelling errors. Chief Complaint: 88-year-old male presents to the emergency department for weakness and frequent falls History of Present Illness: Patient is 88-year-old male presents emergency department for fall today. Apparently he has been falling recently. He has been really weak. He does not know why he is brought to the emergency department. States he lives at home with his . States that his was the 1 who called EMS. According to EMS patient slid and fell out of bed this morning around 6 to 7 AM. He was found on the ground by his . Patient den ies any complaints except for some weakness he does take some anticoagulation medications. Patient takes Xarelto. Denies any nausea vomiting or abdominal pain. States that he feels weak throughout his whole body The ROS documented in this emergency department record has been reviewed and confirmed by me. Those systems with pertinent positive or negative responses have been documented in the HPI. All other systems are other negative and/or noncontributory. - Related Data Home Medications Medication Instructions Recorded Confirmed Atorvastatin [Lipitor] 20 mg PO DAILY 06/23/21 04/26/23 Tamsulosin [Flomax] 0.4 mg PO DAILY 06/23/21 04/26/23 lisinopriL [Prinivil] 20 mg PO DAILY 06/23/21 04/26/23 Metoprolol Tartrate [Lopressor] 12.5 mg PO DAILY 09/07/22 04/26/23 Rivaroxaban [Xarelto] 15 mg PO W/SUPPER 09/07/22 04/26/23 Citalopram Hydrobromide [CeleXA] 40 mg PO DAILY 04/26/23 04/26/23 amLODIPine [Norvasc] 5 mg PO DAILY 04/26/23 04/26/23 Previous Rx's Medication Instructions Recorded Albuterol Inhaler [Ventolin Hfa 2 puff INHALATION RT-QID PRN #1 inh 09/10/22 Inhaler] Allergies Allergy/AdvReac Type Severity Reaction Status Date / Time No Known Allergies Allergy Verified 10/17/23 07:25 Review of Systems ROS Statement: Those systems with pertinent positive or pertinent negative responses have been documented in the HPI. ROS Other: All systems not noted in ROS Statement are negative. Past Medical History Past Medical History: Dementia, Hyperlipidemia, Prostate Disorder, Renal Disease Additional Past Medical History / Comment(s): BPH History of Any Multi-Drug Resistant Organisms: None Reported Past Surgical History: No Surgical Hx Reported Past Anesthesia/Blood Transfusion Reactions: No Reported Reaction Past Psychological History: No Psychological Hx Reported Smoking Status: Former smoker Past Alcohol Use History: Occasional Past Drug Use History: None Reported - Past Family History Mother Family Medical History: Hypertension General Exam - General Exam Comments Initial Comments: PHYSICAL EXAM: General Impression: Alert and oriented x3, not in acute distress HEENT: Normocephalic atraumatic, extra-ocular movements intact, pupils equal and reactive to light bilaterally, mucous membranes moist. Cardiovascular: Heart regular rate and rhythm Chest: Able to complete full sentences, no retractions, no tachypnea Abdomen: abdomen soft, non-tender, non-distended, no organomegaly Musculoskeletal: Pulses present and equal in all extremities, no peripheral edema Motor: no focal deficits noted Neurological: CN II-XII grossly intact, no focal motor or sensory deficits noted Skin: Intact with no visualized rashes Psych: Normal affect and mood Limitations: no limitations Course Vital Signs 10/17/23 10/17/23 10/17/23 07:18 08:52 08:55 Temperature 99.3 F Pulse Rate 91 Pulse Rate [ 74 79 Welfare Specialist ] Respiratory 18 18 18 Rate Blood Pressure 143/79 Blood Pressure 138/85 [Right Arm Sitting] Blood Pressure [Right Arm Standing] Blood Pressure 159/83 [Right Arm Supine] O2 Sat by Pulse 94 L Oximetry 10/17/23 10/17/23 08:59 09:02 Temperature Pulse Rate 65 Pulse Rate [ 85 Welfare Specialist ] Respiratory 18 18 Rate Blood Pressure Blood Pressure [Right Arm Sitting] Blood Pressure 141/83 [Right Arm Standing] Blood Pressure [Right Arm Supine] O2 Sat by Pulse 98 Oximetry - Reevaluation(s) Reevaluation #1: 10/17/23 09:09 Labs imaging disposition were discussed with Stevan who is a person to notify listed on patient's demographics. There felt that patient is unfit and a danger to himself at home and would prefer that he be admitted for grave disability. EKG Findings - EKG Comments: EKG Findings:: My EKG interpretation: Ventricular rate 84, A-fib, QRS 84, QTc 380. No MO prolongation, no QTC prolongation, no ST or T-wave changes noted. EKG compared to April 26, 2023 showing no changes. Overall, this EKG is unremarkable Medical Decision Making - Medical Decision Making Was pt. sent in by a medical professional or institution (, PA, SAMPLE ROOM SUPERVISOR, urgent care, hospital, or [facility]...) When possible be specific @ -No Did you speak to anyone other than the patient for history (EMS, parent, family, police, friend...)? What history was obtained from this source @ -EMS and son over the phone Did you review nursing and triage notes (agree or disagree)? Why? @ -I reviewed and agree with nursing and triage notes Were old charts reviewed (outside hosp., previous admission, EMS record, old EKG, old radiological studies, urgent care reports/EKG's, [facility] records)? Report findings @ -No old charts were reviewed Differential Diagnosis (chest pain, altered mental status, abdominal pain women, abdominal pain men, vaginal bleeding, musculoskeletal, weakness, fever, dyspnea, syncope, headache, dizziness, GI bleed, back pain, seizure, CVA, palpatations, mental health)? @ -Differential Weakness: Hypoglycemia, shock, sepsis, hyponatremia, anemia, infection, KS, ETOH, adverse medicine reaction, overdose, stroke, this is not meant to be an all-inclusive list. EKG interpreted by me (3pts min.). @ -See above X-rays interpreted by me (1pt min.). @ -X-ray of the chest pelvis shows no acute processes CT interpreted by me (1pt min.). @ -CT scan of the brain and C-spine shows no acute processes U/S interpreted by me (1pt. min.). @ -None done What testing was considered but not performed or refused? (CT, X-rays, U/S, labs)? Why? @ -None What meds were considered but not given or refused? Why? @ -None Did you discuss the management of the patient with other professionals (professionals i.e. , PA, SAMPLE ROOM SUPERVISOR, lab, RT, psych nurse, home health care social worker, engineering lecturer, teacher, mounted police officer, case picker)? Give summary @ -Case discussed with hospitalist for admission Was smoking cessation discussed for >3mins.? @ -No Was critical care preformed (if so, how long)? @ -No Were there social determinants of health that impacted care today? How? (Homelessness, low income, unemployed, alcoholism, drug addiction, transportation, low edu. Level, literacy, decrease access to med. care, half-way, rehab)? @ -No Was there de-escalation of care discussed even if they declined (Discuss DNR or withdrawal of care, Hospice)? DNR status @ -No What co-morbidities impacted this encounter? (DM, HTN, Smoking, COPD, CAD, Cancer, CVA, ARF, Chemo, Hep., AIDS, mental health diagnosis, sleep apnea, morbid obesity)? @ -None Was patient admitted / discharged? Hospital course, mention meds given and route, prescriptions, significant lab abnormalities, going to OR and other pertinent info. @ -88-year-old male presents emergency department for frequent falls generalized weakness. He fell today and was unable to get up. Vital signs are stable. Patient is well-appearing at the bedside in no acute distress. Laboratory evaluation obtained. Elevated troponin however patient does have a history of cardiac disease and elevated troponins. He is not having any ACS type symptoms. Imaging studies are negative for acute traumatic processes. Disposition options were discussed with Stevan over the phone as discussed above. They request that patient be admitted for grave disability as they feel he is a threat to himself given the degree of weakness that he is experiencing. Undiagnosed new problem with uncertain prognosis? @ -No Drug Therapy requiring intensive monitoring for toxicity (Heparin, Nitro, Insulin, Cardizem)? @ -No Were any procedures done? @ -No Diagnosis/symptom? Acute, or Chronic, or Acute on Chronic? Uncomplicated (without systemic symptoms) or Complicated (systemic symptoms)? @ -Gravely disabled Side effects of treatment? @ -No Exacerbation, Progression, or Severe Exacerbation? @ -No Poses a threat to life or bodily function? How? (Chest pain, USA, KS, pneumonia, PE, COPD, DKA, ARF, appy, cholecystitis, CVA, Diverticulitis, Homicidal, Suicidal, threat to staff... and all critical care pts) @ -yes - Lab Data Result diagrams: 10/17/23 07:36 10/17/23 07:36 Lab Results 10/17/23 10/17/23 10/17/23 Range/Units 07:36 07:36 07:36 WBC 9.2 (3.8-10.6) k/uL RBC 4.12 L (4.30-5.90) m/uL Hgb 13.4 (13.0-17.5) gm/dL Hct 40.1 (39.0-53.0) % MCV 97.3 (80.0-100.0) fL MCH 32.6 (25.0-35.0) pg MCHC 33.4 (31.0-37.0) g/dL RDW 12.9 (11.5-15.5) % Plt Count 238 (150-450) k/uL MPV 7.6 Neutrophils % 75 % Lymphocytes % 15 % Monocytes % 7 % Eosinophils % 1 % Basophils % 0 % Neutrophils # 6.9 (1.3-7.7) k/uL Lymphocytes # 1.4 (1.0-4.8) k/uL Monocytes # 0.7 (0-1.0) k/uL Eosinophils # 0.1 (0-0.7) k/uL Basophils # 0.0 (0-0.2) k/uL PT 14.3 H (10.0-12.5) sec INR 1.4 H (<1.2) APTT 27.8 (22.0-30.0) sec Sodium 143 (137-145) mmol/L Potassium 4.2 (3.5-5.1) mmol/L Chloride 115 H (98-107) mmol/L Carbon Dioxide 21 L (22-30) mmol/L Anion Gap 7 mmol/L BUN 30 H (9-20) mg/dL Creatinine 1.47 H (0.66-1.25) mg/dL Est GFR (CKD-EPI)AfAm 49 (>60 ml/min/1.73 sqM) Est GFR (CKD-EPI)NonAf 42 (>60 ml/min/1.73 sqM) Glucose 108 H (74-99) mg/dL Plasma Lactic Acid Ammon (0.7-2.0) mmol/L Calcium 9.3 (8.4-10.2) mg/dL Magnesium 1.9 (1.6-2.3) mg/dL Total Bilirubin 0.6 (0.2-1.3) mg/dL AST 24 (17-59) U/L ALT 23 (4-49) U/L Alkaline Phosphatase 122 (38-126) U/L Troponin I (0.000-0.034) ng/mL Total Protein 6.6 (6.3-8.2) g/dL Albumin 3.8 (3.5-5.0) g/dL Urine Color Urine Appearance (Clear) Urine pH (5.0-8.0) Ur Specific [place] (1.001-1.035) Urine Protein (Negative) Urine Glucose (UA) (Negative) Urine Ketones (Negative) Urine Blood (Negative) Urine Nitrite (Negative) Urine Bilirubin (Negative) Urine Urobilinogen (<2.0) mg/dL Ur Leukocyte Esterase (Negative) Influenza Type A (PCR) (Not Detectd) Influenza Type B (PCR) (Not Detectd) RSV (PCR) (Not Detectd) SARS-CoV-2 (PCR) (Not Detectd) 10/17/23 10/17/23 10/17/23 Range/Units 07:36 07:36 07:36 WBC (3.8-10.6) k/uL RBC (4.30-5.90) m/uL Hgb (13.0-17.5) gm/dL Hct (39.0-53.0) % MCV (80.0-100.0) fL MCH (25.0-35.0) pg MCHC (31.0-37.0) g/dL RDW (11.5-15.5) % Plt Count (150-450) k/uL MPV Neutrophils % % Lymphocytes % % Monocytes % % Eosinophils % % Basophils % % Neutrophils # (1.3-7.7) k/uL Lymphocytes # (1.0-4.8) k/uL Monocytes # (0-1.0) k/uL Eosinophils # (0-0.7) k/uL Basophils # (0-0.2) k/uL PT (10.0-12.5) sec INR (<1.2) APTT (22.0-30.0) sec Sodium (137-145) mmol/L Potassium (3.5-5.1) mmol/L Chloride (98-107) mmol/L Carbon Dioxide (22-30) mmol/L Anion Gap mmol/L BUN (9-20) mg/dL Creatinine (0.66-1.25) mg/dL Est GFR (CKD-EPI)AfAm (>60 ml/min/1.73 sqM) Est GFR (CKD-EPI)NonAf (>60 ml/min/1.73 sqM) Glucose (74-99) mg/dL Plasma Lactic Acid Ammon 1.5 (0.7-2.0) mmol/L Calcium (8.4-10.2) mg/dL Magnesium (1.6-2.3) mg/dL Total Bilirubin (0.2-1.3) mg/dL AST (17-59) U/L ALT (4-49) U/L Alkaline Phosphatase (38-126) U/L Troponin I 0.039 H* (0.000-0.034) ng/mL Total Protein (6.3-8.2) g/dL Albumin (3.5-5.0) g/dL Urine Color Urine Appearance (Clear) Urine pH (5.0-8.0) Ur Specific [place] (1.001-1.035) Urine Protein (Negative) Urine Glucose (UA) (Negative) Urine Ketones (Negative) Urine Blood (Negative) Urine Nitrite (Negative) Urine Bilirubin (Negative) Urine Urobilinogen (<2.0) mg/dL Ur Leukocyte Esterase (Negative) Influenza Type A (PCR) Not Detected (Not Detectd) Influenza Type B (PCR) Not Detected (Not Detectd) RSV (PCR) Not Detected (Not Detectd) SARS-CoV-2 (PCR) Not Detected (Not Detectd) 10/17/23 Range/Units 09:02 WBC (3.8-10.6) k/uL RBC (4.30-5.90) m/uL Hgb (13.0-17.5) gm/dL Hct (39.0-53.0) % MCV (80.0-100.0) fL MCH (25.0-35.0) pg MCHC (31.0-37.0) g/dL RDW (11.5-15.5) % Plt Count (150-450) k/uL MPV Neutrophils % % Lymphocytes % % Monocytes % % Eosinophils % % Basophils % % Neutrophils # (1.3-7.7) k/uL Lymphocytes # (1.0-4.8) k/uL Monocytes # (0-1.0) k/uL Eosinophils # (0-0.7) k/uL Basophils # (0-0.2) k/uL PT (10.0-12.5) sec INR (<1.2) APTT (22.0-30.0) sec Sodium (137-145) mmol/L Potassium (3.5-5.1) mmol/L Chloride (98-107) mmol/L Carbon Dioxide (22-30) mmol/L Anion Gap mmol/L BUN (9-20) mg/dL Creatinine (0.66-1.25) mg/dL Est GFR (CKD-EPI)AfAm (>60 ml/min/1.73 sqM) Est GFR (CKD-EPI)NonAf (>60 ml/min/1.73 sqM) Glucose (74-99) mg/dL Plasma Lactic Acid Ammon (0.7-2.0) mmol/L Calcium (8.4-10.2) mg/dL Magnesium (1.6-2.3) mg/dL Total Bilirubin (0.2-1.3) mg/dL AST (17-59) U/L ALT (4-49) U/L Alkaline Phosphatase (38-126) U/L Troponin I (0.000-0.034) ng/mL Total Protein (6.3-8.2) g/dL Albumin (3.5-5.0) g/dL Urine Color Yellow Urine Appearance Clear (Clear) Urine pH 5.0 (5.0-8.0) Ur Specific [place] 1.024 (1.001-1.035) Urine Protein Negative (Negative) Urine Glucose (UA) Negative (Negative) Urine Ketones Negative (Negative) Urine Blood Negative (Negative) Urine Nitrite Negative (Negative) Urine Bilirubin Negative (Negative) Urine Urobilinogen <2.0 (<2.0) mg/dL Ur Leukocyte Esterase Negative (Negative) Influenza Type A (PCR) (Not Detectd) Influenza Type B (PCR) (Not Detectd) RSV (PCR) (Not Detectd) SARS-CoV-2 (PCR) (Not Detectd) Disposition Clinical Impression: Generalized weakness Disposition: ADMITTED IP TO THIS [facility] Condition: Fair Referrals: Donell Caraballo MD [Primary Care Provider] - 1-2 days Decision Time: 09:34
[2023-10-17 07:56] LABS: ALT 23 U/L (4-49); AST 24 U/L (17-59); African American GFR (CKD) 49 (>60 ml/min/1.73 sqM); Albumin 3.8 g/dL (3.5-5.0); Alkaline Phosphatase 122 U/L (38-126); Anion Gap 7 mmol/L; Blood Urea Nitrogen 30 mg/dL (9-20); Calcium 9.3 mg/dL (8.4-10.2); Carbon Dioxide 21 mmol/L (22-30); Chloride 115 mmol/L (98-107); Glucose 108 mg/dL (74-99); Magnesium 1.9 mg/dL (1.6-2.3); Non-African American GFR(CKD) 42 (>60 ml/min/1.73 sqM); Potassium 4.2 mmol/L (3.5-5.1); Sodium 143 mmol/L (137-145); Total Bilirubin 0.6 mg/dL (0.2-1.3); Total Protein 6.6 g/dL (6.3-8.2)
[2023-10-17 07:58] LABS: INR 1.4 (<1.2); Partial Thromboplastin Time 27.8 sec (22.0-30.0); Prothrombin Time 14.3 sec (10.0-12.5)
--- NOTE | 2023-10-17 08:16 | CT ---
EXAMINATION TYPE: CT brain [place] wo con DATE OF EXAM: 10/17/2023 COMPARISON: 04/26/2023 HISTORY: fall, head and neck pain CT DLP: 1563.4 mGycm, Automated exposure control for dose reduction was used. CONTRAST: Patient injected with 0 mL of Isovue 300. CT of the brain is performed utilizing 3 mm thick sections through the posterior fossa and 3 mm thick sections through the remaining calvarium. Study is performed within 24 hours of arrival to the hospital. No abnormal hyperdensity is present to suggest an acute intracranial hemorrhage. No mass lesion is evident. No acute infarcts are evident. Periventricular white matter hypodensity is present, likely on the ba sis of chronic white matter ischemic changes. Ventricles and sulci are prominent for the patient age. Paranasal sinuses and mastoid air cells within the [id number] are clear. IMPRESSIONS: 1. Atrophy with chronic appearing periventricular white matter ischemic-type changes. 2. No acute intracranial process. Follow-up MRI can be performed as clinically indicated. CT cervical spine. COMPARISON: None CT of the cervical spine is performed in the axial plane at 2 mm thick sections. Reconstructed image s in the coronal, and sagittal plane are reviewed on the computer. No acute fractures are evident. Vertebral body alignment is normal. There is diffuse loss of disc height throughout the cervical spine greatest at C4-5 C5-6 and C6-7. Vertebral body heights are preserved. No spinal canal stenosis is evident. C4-5 foraminal narrowing is present secondary to uncovertebral joint hypertrophy. Similar foraminal n arrowing is present C5-6 bilaterally. Milder C6-7 foraminal narrowing is present. IMPRESSION: 1. No acute osseous abnormality cervical spine. 2. Degenerative disc changes and foraminal narrowing through the mid cervical spine discussed above
--- NOTE | 2023-10-17 08:22 | XR ---
EXAMINATION TYPE: XR chest 1V portable DATE OF EXAM: 10/17/2023 Comparison: 04/26/2023 Clinical History: 88-year-old male with pain after fall Findings: Heart borderline in size. Low lung volumes and crowded vascular markings. Similar tortuous/tethered t horacic aorta. No consolidation or pleural effusion seen. Impression: Hypoventilatory changes and borderline heart size. No definite acute process.
--- NOTE | 2023-10-17 08:29 | XR ---
EXAMINATION TYPE: XR pelvis AP view DATE OF EXAM: 10/17/2023 Comparison: None Clinical History: 88-year-old male with pain after fall Findings: Mild to moderate degenerative change of both hips with marginal spurring. Synovial calcifications may be idiopathic or could reflect underlying CPPD. SI joints appear symmetric and intact as is the pubic symphysis. Left-sided pelvic phleboliths. Moderate stool in the rectum. No acute fracture, subluxation, dislocation seen. Impression: Etea-fa-zrcacyli bilateral hip OA. No acute osseous abnormality seen.
[2023-10-17 09:14] LABS: Appearance,Urine Clear (Clear); Bilirubin,Urine Negative (Negative); Blood,Urine Negative (Negative); Color,Urine Yellow; Glucose,Urine (UA) Negative (Negative); Ketones,Urine Negative (Negative); Leukocyte Esterase,Urine Negative (Negative); Nitrite,Urine Negative (Negative); Protein,Urine Negative (Negative); Specific Gravity,Urine 1.024 (1.001-1.035); Urobilinogen,Urine <2.0 mg/dL (<2.0)
[2023-10-17] MEDS ORDERED: NALOXONE 0.4 MG/ML 1 ML VIAL IV PRN (09:30)
[2023-10-17] MEDS: SODIUM CHLORIDE 0.9% 1,000 ML IV SCH (10:38)
[2023-10-17] MEDS ORDERED: LACTATED RINGERS 1,000 ML IV SCH (11:45)
--- NOTE | 2023-10-17 11:46 | XR ---
EXAMINATION TYPE: XR knee 4V RT, XR ankle complete 3 views RT DATE OF EXAM: 10/17/2023 COMPARISON: NONE HISTORY: 88-year-old male frequent falls with pain FINDINGS: Right knee: Meniscal chondrocalcinosis noted. There is a small knee joint effusion. Excessive mechanism appears i ntact. The patella remains appropriately situated along the trochlear groove. Osteopenia. No acute fr acture, subluxation, or dislocation is seen. Right ankle: Osteopenia. Ankle mortise is congruent with preservation of the distal tibiofibular overlap. Talar do me is intact. There is anterior and lateral soft tissue swelling present. Small plantar heel spur. Sm ooth delineation to the Achilles tendon. No acute fracture, subluxation, dislocation. IMPRESSION: 1. Right knee: Osteopenia. No acute osseous abnormality seen. A small knee joint effusion is nonspeci fic. If concern for internal derangement, MRI can be performed. 2. Right ankle: Anterior and lateral soft tissue swelling. Osteopenia. No underlying acute osseous ab normality seen.
--- NOTE | 2023-10-17 15:09 | P.HPIM ---
History of Present Illness H&P Date: 10/17/23 Patient is a 88-year-old male with history of hypertension, dyslipidemia, atrial fibrillation on Eliquis, BPH, depression presenting with generalized weakness and repeated falls. Patient is a poor historian. Daughter is present at bedside, able to supplement most of the history. She claims that over the last 1 month or so he has been feeling progressively weak and having frequent falls at least once per week. Her brother and she decided to bring him to the hospital yesterday due to a fall on his right side and he was unable to get up from the floor. He currently lives with his who is also elderly. Per patient, he has been able to get out of the bed and able to use the bathroom but daughter states that most of the time he spends on the bed due to persistent weakness. He had similar issues in the past and was dehydrated. He denies any difficulty eating. He denies any chest pain, shortness of breath, palpitations, nausea, vomiting, urinary or bowel complaints. He denies any smoking, does drink 1 shot of alcohol every night, denies any illicit drug use. In the ED, temperature was 99.3, blood pressure 143/79, respiratory rate 18, pulse 91, saturating at 94% on room air. WBC 9.2, hemoglobin 13.3, bicarb 21, creatinine 1.47 around baseline, lactate 1.5, troponin 0.039, urinalysis negative, respiratory viral panel negative. EKG showed atrial fibrillation, but rate controlled. Head CT did not show any acute process. Pelvic x-ray showed mild to moderate bilateral hip osteoarthritis, no fractures, chest x-ray independently interpreted, shows no acute process, right knee and right ankle x- ray showed small knee joint effusion, anterior and lateral soft tissue swelling on the right ankle, no acute osseous abnormality seen. Patient admitted for further workup for weakness. Neurology also consulted. Pertinent positives and negatives as discussed in HPI, a complete review of systems was performed and all other systems are negative. Patient seen and examined at bedside. Vital signs reviewed General: nontoxic, no distress, appears at stated age Derm: warm, dry Head: atraumatic, normocephalic, symmetric Eyes: EOMI, no lid lag, anicteric sclera, pupils equal round reactive to light ENT: Nose and ears atraumatic Neck: No thyromegaly, supple Mouth: no lip lesion, mucus membranes moist Cardiovascular: S1S2 reg, no murmur, trace peripheral edema Lungs: clear to auscultation bilateral, no rhonchi, no rales, no wheeze, no accessory muscle use Abdominal: soft, nontender to palpation, no guarding, no appreciable organomegaly Ext: no gross muscle atrophy, right lower extremity reduced strength 4/5 Neuro: CN II-XII grossly intact Psych: Alert, oriented, appropriate affect Assessment/Plan: Active: Generalized weakness Right leg weakness Recurrent falls Orthostatic hypotension NSTEMI, nonischemic -Orthostatics positive, started on lactated Ringer total of 1 L -Having weakness in right leg, no fractures noted on x-rays, not complaining of any back pain -Neurology consulted -Patient may need back imaging -Patient has no active chest pain, continue telemetry monitoring -Patient is a very poor historian, denies any syncopal episodes -May need event monitoring outpatient -Echocardiogram also ordered Has lower extremity swelling, amlodipine discontinued Chronic: Atrial fibrillation Hypertension Dyslipidemia Depression The patient is admitted with an anticipated less than 2 midnight stay as observation status for evaluation of weakness. Surrogate decision-maker: Daughter CODE STATUS: Full code DVT prophylaxis: Eliquis Anticipated discharge date: Pending clinical course Anticipated discharge place: Pending clinical course A total of 55 minutes was spent on the care of this complex patient more than 50% of the time was spent in counseling and care coordination. Past Medical History Past Medical History: Dementia, Hyperlipidemia, Prostate Disorder, Renal Disease Additional Past Medical History / Comment(s): BPH History of Any Multi-Drug Resistant Organisms: None Reported Past Surgical History: No Surgical Hx Reported Past Anesthesia/Blood Transfusion Reactions: No Reported Reaction Past Psychological History: No Psychological Hx Reported Smoking Status: Former smoker Past Alcohol Use History: Occasional Past Drug Use History: None Reported - Past Family History Mother Family Medical History: Hypertension Medications and Allergies Home Medications Medication Instructions Recorded Confirmed Type Atorvastatin [Lipitor] 20 mg PO DAILY 06/23/21 10/17/23 History Tamsulosin [Flomax] 0.4 mg PO DAILY 06/23/21 10/17/23 History lisinopriL [Prinivil] 20 mg PO DAILY 06/23/21 10/17/23 History Metoprolol Tartrate [Lopressor] 12.5 mg PO DAILY 09/07/22 10/17/23 History Rivaroxaban [Xarelto] 15 mg PO DAILY 09/07/22 10/17/23 History Citalopram Hydrobromide [CeleXA] 40 mg PO HS 04/26/23 10/17/23 History amLODIPine [Norvasc] 5 mg PO DAILY 04/26/23 10/17/23 History Allergies Allergy/AdvReac Type Severity Reaction Status Date / Time No Known Allergies Allergy Verified 10/17/23 10:27 Physical Exam Vitals: Vital Signs Temp Pulse Pulse Resp BP BP BP 10/17/23 15:02 66 18 150/87 10/17/23 12:40 70 18 135/84 10/17/23 11:50 64 18 136/89 10/17/23 10:05 80 18 139/70 10/17/23 09:02 65 18 10/17/23 08:59 85 18 141/83 10/17/23 08:55 79 18 138/85 10/17/23 08:52 74 18 10/17/23 07:18 99.3 F 91 18 143/79 BP Pulse Ox 10/17/23 15:02 97 10/17/23 12:40 98 10/17/23 11:50 95 10/17/23 10:05 98 10/17/23 09:02 98 10/17/23 08:59 10/17/23 08:55 10/17/23 08:52 159/83 10/17/23 07:18 94 L Intake and Output 10/17/23 10/17/23 10/17/23 06:59 14:59 22:59 Other: Weight 95.254 kg Results CBC & Chem 7: 10/17/23 07:36 10/17/23 07:36 Labs: Abnormal Lab Results - Last 24 Hours (Table) 10/17/23 10/17/23 10/17/23 Range/Units 07:36 07:36 07:36 RBC 4.12 L (4.30-5.90) m/uL PT 14.3 H (10.0-12.5) sec INR 1.4 H (<1.2) Chloride 115 H (98-107) mmol/L Carbon Dioxide 21 L (22-30) mmol/L BUN 30 H (9-20) mg/dL Creatinine 1.47 H (0.66-1.25) mg/dL Glucose 108 H (74-99) mg/dL Troponin I (0.000-0.034) ng/mL 10/17/23 Range/Units 07:36 RBC (4.30-5.90) m/uL PT (10.0-12.5) sec INR (<1.2) Chloride (98-107) mmol/L Carbon Dioxide (22-30) mmol/L BUN (9-20) mg/dL Creatinine (0.66-1.25) mg/dL Glucose (74-99) mg/dL Troponin I 0.039 H* (0.000-0.034) ng/mL
[2023-10-17] MEDS: CITALOPRAM HYDROBROMIDE 20 MG TAB PO SCH (21:35)
[2023-10-18] MEDS: TAMSULOSIN 0.4 MG CAP.ER.24H PO SCH (08:52)
[2023-10-18] MEDS: METOPROLOL TARTRATE 12.5 MG TAB PO SCH (08:52)
[2023-10-18] MEDS: lisinopriL 20 MG TAB PO SCH (08:52)
[2023-10-18] MEDS: ATORVASTATIN 20 MG TAB PO SCH (08:52)
[2023-10-18] MEDS: HYDROcodone/APAP 5-325MG 1 EACH TAB PO PRN ×2 (08:53→18:11)
[2023-10-18] MEDS: RIVAROXABAN 15 MG TAB PO SCH (08:53)
[2023-10-18 11:10] LABS: African American GFR (CKD) 49 (>60 ml/min/1.73 sqM); Anion Gap 6 mmol/L; Blood Urea Nitrogen 30 mg/dL (9-20); Calcium 9.1 mg/dL (8.4-10.2); Carbon Dioxide 21 mmol/L (22-30); Chloride 114 mmol/L (98-107); Glucose 98 mg/dL (74-99); Magnesium 1.9 mg/dL (1.6-2.3); Non-African American GFR(CKD) 42 (>60 ml/min/1.73 sqM); Potassium 4.5 mmol/L (3.5-5.1); Sodium 141 mmol/L (137-145)
--- NOTE | 2023-10-18 12:32 | CA ---
Transthoracic Echo Report Name: Steven Barber Age: 88 Gender: M : 1935 Exam Date: 10/18/2023 09:23 Exam Location: [facility] Ht (in): 69 Wt (lb): 210 Ordering Physician: Wayne Leal MD Attending/Referring Phys: Networking Technology Instructor Genna Hester RDCS Procedure CPT: Indications: Syncope Cardiac Hx: Technical Quality: Very technically difficult study Contrast 1: Definity Total Dose (mL): 2 Contrast 2: Total Dose (mL): MEASUREMENTS (Male / Female) Normal Values 2D ECHO LV Diastolic Diameter PLAX 3.5 cm 4.2 - 5.9 / 3.9 - 5.3 cm LV Systolic Diameter PLAX 1.9 cm IVS Diastolic Thickness 1.4 cm 0.6 - 1.0 / 0.6 - 0.9 cm LVPW Diastolic Thickness 1.7 cm 0.6 - 1.0 / 0.6 - 0.9 cm LV Relative Wall Thickness 0.9 LA Volume 50.1 cm??? 18 - 58 / 22 - 52 cm??? LA Volume Index 23.0 cm???/m??? 16 - 28 cm???/m??? DOPPLER AV Peak Velocity 133.7 cm/s AV Peak Gradient 7.1 mmHg AV Mean Velocity 84.3 cm/s AV Mean Gradient 3.2 mmHg AV Velocity Time Integral 20.8 cm LVOT Peak Velocity 116.5 cm/s LVOT Peak Gradient 5.4 mmHg LVOT Velocity Time Integral 23.8 cm MV Area PHT 3.1 cm??? Mitral E Point Velocity 40.5 cm/s Mitral A Point Velocity 82.6 cm/s Mitral E to A Ratio 0.5 MV Deceleration Time 242.6 ms FINDINGS Left Ventricle Mildly increased left ventricular wall thickness. Left ventricular cavity size normal. No obvious regional wall motion abnormalities. Left ventricular ejection fraction is estimated at 55 %. Right Ventricle Right ventricle not well visualized. Right Atrium Right atrium not well visualized. Left Atrium Normal left atrial size. Mitral Valve No mitral stenosis, regurgitation or prolapse. Aortic Valve No aortic valve stenosis or regurgitation. Tricuspid Valve Tricuspid valve not well visualized. Pulmonic Valve Pulmonic valve not well visualized. Pericardium No pericardial effusion. Aorta Aortic root and proximal ascending aorta not well visualized. CONCLUSIONS Technically difficult study for interpretation Normal LV systolic function Previewed by: Dr. Amanuel Hickman MD (Electronically Signed) Final Date: 18 October 2023 12:31
--- NOTE | 2023-10-18 14:21 | P.PN ---
Subjective Progress Note Date: 10/18/23 Hospital Course: 88-year-old male with history of hypertension, dyslipidemia, atrial fibrillation on Eliquis, BPH, depression presenting with generalized weakness and repeated falls. In the ED, temperature was 99.3, blood pressure 143/79, respiratory rate 18, pulse 91, saturating at 94% on room air. WBC 9.2, hemoglobin 13.3, bicarb 21, creatinine 1.47 around baseline, lactate 1.5, troponin 0.039, urinalysis negative, respiratory viral panel negative. EKG showed atrial fibrillation, but rate controlled. Head CT did not show any acute process. Pelvic x-ray showed mild to moderate bilateral hip osteoarthritis, no fractures, chest x-ray independently interpreted, shows no acute process, right knee and right ankle x- ray showed small knee joint effusion, anterior and lateral soft tissue swelling on the right ankle, no acute osseous abnormality seen. Patient admitted for further workup for weakness. Neurology also consulted. Orthopedic surgery also consulted Subjective: Patient seen and examined at bedside. No acute events overnight. Pertinent positives and negatives as discussed above, a complete review of systems was performed and all other systems are negative. Vitals Signs Reviewed. General: nontoxic, no distress, appears at stated age Derm: warm, dry Head: atraumatic, normocephalic, symmetric Eyes: EOMI, no lid lag, anicteric sclera, pupils equal round reactive to light ENT: Nose and ears atraumatic Neck: No thyromegaly, supple Mouth: no lip lesion, mucus membranes moist Cardiovascular: S1S2 reg, no murmur, trace peripheral edema Lungs: clear to auscultation bilateral, no rhonchi, no rales, no wheeze, no accessory muscle use Abdominal: soft, nontender to palpation, no guarding, no appreciable organomegaly Ext: no gross muscle atrophy, right lower extremity reduced strength 4/5 Neuro: CN II-XII grossly intact Psych: Alert, oriented, appropriate affect Data Reviewed Today: Pertinent Labs: Sodium 141, potassium 4.5, bicarb 21, creatinine 1.47, magnesium 1.9 Imaging: Echocardiogram showed normal LV systolic function Assessment and Plan: Generalized weakness Right leg weakness Recurrent falls Orthostatic hypotension NSTEMI, nonischemic -Repeat orthostatics ordered for today -Having weakness in right leg, no fractures noted on x-rays, not complaining of any back pain -Discussed management with neurology, unlikely to be neurologic cause of weakness, possibly osteoarthritis, orthopedic surgery consulted -Patient has no active chest pain, continue telemetry monitoring -Patient is a very poor historian, denies any syncopal episodes -May need event monitoring outpatient -Echocardiogram did not show any valvular issue Has lower extremity swelling, amlodipine discontinued Chronic: Atrial fibrillation Hypertension Dyslipidemia Depression DVT ppx: Xarelto Code status: Full code Anticipated discharge place: Likely rehab Anticipated discharge time: Pending clinical course Objective - Vital Signs Vital signs: Vital Signs Temp 97.3 F L 10/18/23 08:00 Pulse 79 10/18/23 08:00 Resp 17 10/18/23 08:00 BP 158/66 10/18/23 08:00 Pulse Ox 94 L 10/18/23 08:00 FiO2 Intake & Output 10/17/23 10/18/23 10/18/23 18:59 06:59 18:59 Intake Total 540 240 Balance 540 240 Weight 95.254 kg 95.254 kg Intake: Oral 540 240 Other: Voiding Method Urinal Urinal # Voids 1 - Labs CBC & Chem 7: 10/17/23 07:36 10/18/23 10:36 Labs: Abnormal Lab Results - Last 24 Hours (Table) 10/18/23 Range/Units 10:36 Chloride 114 H (98-107) mmol/L Carbon Dioxide 21 L (22-30) mmol/L BUN 30 H (9-20) mg/dL Creatinine 1.47 H (0.66-1.25) mg/dL
--- NOTE | 2023-10-18 18:24 | P.CNNES ---
History of Present Illness Consult date: 10/18/23 Requesting physician: Wayne Leal Reason for Consult: Weakness, right leg History of Present Illness: Patient is a 88-year-old male came to the hospital by ambulance yesterday at 7:09 AM after he suffered from a fall. Patient states that he was in the garage and slipped on some construction stuff present in the garage. Once he was on the floor, he could not get up. He did not pass out. He hollered at his son in the health aide and they picked him up. Since then he has been complaining of weakness and soreness in the whole right leg. His right knee is also hurting, still cannot walk by himself. He states that he cannot walk because of weakness, and the pain is not as bad. Patient states that usually he walks with a walker inside his home, and uses a 4 pronged cane outside, for last 1 year. He uses these devices just to be on safe side. Patient denies any strokelike symptoms like slurred speech, double vision, loss of vision, facial droop, focal numbness tingling otherwise. He does have some low back soreness, but denies any significant pain. As per EMS flowsheet, when they arrived, patient was found laying on the floor in the supine position, appearing to be alert and oriented x 4, pink, warm and dry. Patient able to answer all questions appropriately. Patient states that he slipped out of bed due to the floors being slippery. Patient's caregiver on the scene states that he fell in the garage last night and injured his right knee. Patient appeared to have redness and minor scabs abrasion to the right knee. Patient denies loss of consciousness on the fall last night or this morning. Patient is on blood thinners. Patient denies hitting his head or having head, neck or back pain. Patient denies feeling dizzy, lightheaded. Patient's caregiver states that his lower legs have been giving out on him causing him to fall when he this happens, he is usually dehydrated due to not taking fluids at home. Patient was assisted off the ground into the standing position and was noted to have an unsteady gait with assistance. conveyor monitor showed atrial fibrillation. Vital signs at the scene showed blood pressure 135/77, pulse rate 78, respirations 16, saturation 95% and blood sugar 125. Blood test shows normal CBC, INR 1.4, PTT is normal, electrolytes are normal, BUN 30, creatinine 1.47. Hepatic panel is normal, troponin mildly elevated. UA is negative. Influenza, RSV and coronavirus PCR negative. CT head revealed atrophy with chronic appearing periventricular white matter ischemic type changes. No acute intracranial process. I personally reviewed CT head, and appears slight vague 6 mm rounded hypodensity in the right basal ganglia, cannot rule out subacute infarct. CT of the cervical spine reported no acute osseous abnormality. Degenerative disc changes and foraminal narrowing through the mid cervical spine. Chest x-ray revealed hypoventilatory changes and borderline heart size. No definite acute process. Pelvic x-ray revealed mild to moderate bilateral hip OA. No acute osseous abnormality seen. EKG revealed atrial fibrillation. Right knee x-ray showed osteopenia. A small knee joint effusion is nonspecific. Right ankle x-ray revealed anterior and lateral soft tissue swelling. Osteopenia. No underlying acute osseous abnormality. Patient's home medications include lisinopril, Lipitor 20 mg, Flomax, Xarelto 15 mg, metoprolol, Celexa 40 mg and amlodipine. Patient denies tobacco use, he uses 1 drink of [employer] a day. He denies diabetes. He has hypertension. Patient states that when he was young, around 9 or 10 years of age, he was to faint whenever he would vomit. Then for a number of years he did not faint. Just in the last 3 years, he has fainted about 3 times only when he has been vomiting. Review of Systems Constitutional: Denies chills, Denies fever Eyes: denies blurred vision, denies diplopia, denies pain Ears: deny: decreased hearing, ear discharge Ears, nose, mouth and throat: Denies headache, Denies sore throat Cardiovascular: Reports lightheadedness, Reports syncope, Denies chest pain, Denies shortness of breath Respiratory: Denies cough, Denies excessive sputum Gastrointestinal: Denies abdominal pain, Denies diarrhea, Denies nausea, Denies vomiting Genitourinary: Denies incontinence, Denies urinary frequency Musculoskeletal: Denies low back pain, Denies neck pain Integumentary: Denies pruritus, Denies rash Neurological: Reports as per HPI Psychiatric: Denies anxiety, Denies depression Past Medical History Past Medical History: Dementia, Hyperlipidemia, Prostate Disorder, Renal Disease Additional Past Medical History / Comment(s): BPH History of Any Multi-Drug Resistant Organisms: None Reported Past Surgical History: No Surgical Hx Reported Past Anesthesia/Blood Transfusion Reactions: No Reported Reaction Past Psychological History: No Psychological Hx Reported Smoking Status: Former smoker Past Alcohol Use History: Occasional Additional Past Alcohol Use History / Comment(s): 1 beer and 1 shot of whiskey a day. stopped smoking 30 years ago Past Drug Use History: None Reported - Past Family History Mother Family Medical History: Hypertension Medications and Allergies Home Medications Medication Instructions Recorded Confirmed Type Atorvastatin [Lipitor] 20 mg PO DAILY 06/23/21 10/17/23 History Tamsulosin [Flomax] 0.4 mg PO DAILY 06/23/21 10/17/23 History lisinopriL [Prinivil] 20 mg PO DAILY 06/23/21 10/17/23 History Metoprolol Tartrate [Lopressor] 12.5 mg PO DAILY 09/07/22 10/17/23 History Rivaroxaban [Xarelto] 15 mg PO DAILY 09/07/22 10/17/23 History Citalopram Hydrobromide [CeleXA] 40 mg PO HS 04/26/23 10/17/23 History amLODIPine [Norvasc] 5 mg PO DAILY 04/26/23 10/17/23 History Allergies Allergy/AdvReac Type Severity Reaction Status Date / Time No Known Allergies Allergy Verified 10/17/23 10:27 Physical Examination - Vital Signs Vital Signs: Vital Signs Temp Pulse Pulse Resp BP BP Pulse Ox 10/18/23 08:00 97.3 F L 79 17 158/66 94 L 10/18/23 04:00 69 18 136/66 94 L 10/18/23 00:00 69 18 155/89 94 L 10/17/23 22:33 80 151/81 97 10/17/23 20:00 72 16 126/80 95 10/17/23 19:15 71 18 10/17/23 18:00 75 18 126/80 97 10/17/23 17:20 85 18 162/97 96 10/17/23 16:20 84 18 96 10/17/23 15:02 66 18 150/87 97 10/17/23 12:40 70 18 135/84 98 10/17/23 11:50 64 18 136/89 95 Intake and Output 10/17/23 10/18/23 10/18/23 22:59 06:59 14:59 Intake Total 540 240 Balance 540 240 Intake: Oral 540 240 Other: Voiding Method Urinal Urinal # Voids 1 Weight 95.254 kg Patient is an elderly male, very pleasant, in no acute distress. Patient is alert awake oriented to time place and person. Speech and language functions are normal. Patient can name and repeat very well. No aphasia or dysarthria. Attention, concentration and fund of knowledge is adequate. On cranial nerve examination, pupils are equal, round and reacting to light, visual velarde are full on confrontation, with no neglect on double simultaneous stimulation. Extraocular muscles are intact with no nystagmus. Face is symmetric, tongue protrudes to the midline. Palatal elevation and sensation normal, hearing and shoulder shrug normal, facial sensation normal. On muscle strength testing, there is no pronator drift and the strength is normal in arms distally and proximally. In the lower limbs, (right/left) hip flexion 2/4, ankle dorsiflexion 5/5. Deep tendon reflexes are symmetric 1 at the biceps, 1 brachioradialis, 1 at the left knee. Patient has bandage on his right knee therefore could not be checked. Plantars are flat bilaterally. Sensory to touch is equal with no neglect on double simultaneous stimulation. No loss of sensation in the dermatomes in the lower limbs. Cerebellar function showed no ataxia for [id number] testing. No dysdiadochokinesia. Tone and bulk of muscles normal. Gait deferred.. On general examination, there is no carotid bruit or murmur, S1-S2 audible. Chest is clear on consultation. Abdomen is soft nontender. No organomegaly, bowel sounds present. Peripheral pulses are present. No peripheral edema. Examination of the hip revealed significant pain with the movement. Orthostatics were checked, supine blood pressure 159/83, pulse of 74, sitting 138/85 with pulse of 79, and standing blood pressure 141/83, pulse rate 85. Results - Laboratory Findings CBC and BMP: 10/17/23 07:36 10/18/23 10:36 Abnormal Lab Findings: Abnormal Labs 10/17/23 10/17/23 10/17/23 07:36 07:36 07:36 RBC 4.12 L PT 14.3 H INR 1.4 H Chloride 115 H Carbon Dioxide 21 L BUN 30 H Creatinine 1.47 H Glucose 108 H Troponin I 10/17/23 07:36 RBC PT INR Chloride Carbon Dioxide BUN Creatinine Glucose Troponin I 0.039 H* Assessment and Plan Assessment: * Status post fall, due to slipping in the garage. Patient has subsequently developed pain and weakness in the right leg. Rest of the examination is nonfocal. Examination of the hip elicited significant pain. X-ray shows mild to moderate osteoarthritis of the hips. Patient's right knee is also tender, and swollen. Suspect right leg weakness related to orthopedic issue of the hip +/- knee joint issue. Patient denies any back pain or radicular symptoms. * Chronic atrial fibrillation, on Xarelto * Mild to moderate chronic renal insufficiency * Hypertension * Hyperlipidemia Plan: * Suggest orthopedic consultation for evaluation of possible right hip and right knee arthritis. * Continue Xarelto for stroke prevention related to atrial fibrillation. * Carotid Doppler on 05/16/2023 revealed no evidence for hemodynamically significant stenosis. Antegrade flow in both vertebral arteries. * 2D echo from 04/27/2023 revealed normal left ventricular function with EF 50 to 55%. Mildly increased left ventricular wall thickness. Mild concentric LVH. No obvious regional wall motion abnormalities. Normal left atrial size. Mild to moderate aortic regurgitation. * Vitamin B12 391, borderline, we will start replacement. * PT, OT evaluate gait. * Discussed with primary physician. * Neurology will follow clinically. Thank you for the consult.
[2023-10-18] MEDS: CITALOPRAM HYDROBROMIDE 20 MG TAB PO SCH (21:33)
[2023-10-19] MEDS: SODIUM CHLORIDE 0.9% 1,000 ML IV SCH ×2 (01:35→08:57)
--- NOTE | 2023-10-19 08:52 | P.CNOR ---
History of Present Illness - [facility] Consult date: 10/19/23 History of present illness: The patient is a pleasant 88-year-old male who is presently admitted to internal medicine with progressively worsening weakness. An orthopedics consult was placed for discomfort and weakness in the right leg. At the time of my evaluation the patient states he really doesn't have any pain at rest in his right leg. He is unsure if he would be able to get up and ambulate. The patient reports a ground-level fall about 2 weeks ago. When asked to localize his pain he points over the lateral aspect of the hip and groin and also states that it radiates into his thigh and down into his lower leg. He denies any back pain. He has no other complaints at the time of my evaluation. Past Medical History Past Medical History: Dementia, Hyperlipidemia, Prostate Disorder, Renal Disease Additional Past Medical History / Comment(s): BPH History of Any Multi-Drug Resistant Organisms: None Reported Past Surgical History: No Surgical Hx Reported Past Anesthesia/Blood Transfusion Reactions: No Reported Reaction Past Psychological History: No Psychological Hx Reported Smoking Status: Former smoker Past Alcohol Use History: Occasional Additional Past Alcohol Use History / Comment(s): 1 beer and 1 shot of whiskey a day. stopped smoking 30 years ago Past Drug Use History: None Reported - Past Family History Mother Family Medical History: Hypertension Medications and Allergies Home Medications Medication Instructions Recorded Confirmed Type Atorvastatin [Lipitor] 20 mg PO DAILY 06/23/21 10/17/23 History Tamsulosin [Flomax] 0.4 mg PO DAILY 06/23/21 10/17/23 History lisinopriL [Prinivil] 20 mg PO DAILY 06/23/21 10/17/23 History Metoprolol Tartrate [Lopressor] 12.5 mg PO DAILY 09/07/22 10/17/23 History Rivaroxaban [Xarelto] 15 mg PO DAILY 09/07/22 10/17/23 History Citalopram Hydrobromide [CeleXA] 40 mg PO HS 04/26/23 10/17/23 History amLODIPine [Norvasc] 5 mg PO DAILY 04/26/23 10/17/23 History Allergies Allergy/AdvReac Type Severity Reaction Status Date / Time No Known Allergies Allergy Verified 10/17/23 10:27 Physical Examination The patient is resting comfortably in his bed. He has no apparent distress. He is alert and able to answer questions. His head is normocephalic and atraumatic. He demonstrates nonlabored breathing with symmetric chest expansion. His bilateral upper extremities are without deformity and are nontender. His left lower extremity is without deformity and nontender to palpation. A focused exam on the right lower extremity was conducted. On inspection of the leg its resting and externally rotated position. There is no swelling or ecchymosis on inspection of the skin over the hip. There are abrasions over the knee. He has very mild pain with passive range of motion of the hip. Minimal pain with logroll and heel strike. There is minimal tenderness over the knee. Chronic pes planovalgus foot deformity but minimal tenderness in the foot. Results X-rays of the pelvis from 10/17/2023 show no obvious fractures. There are some arthritic changes in the hip joint but the images are nonweightbearing. The lower visualized portion of the lumbar spine on the pelvis x-ray show diffuse degenerative changes. X-rays of the knee from 10/17/2023 show mild arthritis and chondrocalcinosis in the lateral joint space. The x-rays are nonweightbearing. There are no obvious fractures. X-rays of the ankle from 10/17/2023 show no obvious fractures. 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 He has mild arthritis in his hip a nd knee. Due to the recent fall and his age I recommend getting an MRI of the right hip to rule out an occult fracture or other structural cause for his pain. If this is negative, I would recommend continued nonsurgical treatment with physical therapy for mobilization and pain management per the primary service. We also discussed the possibility of his lumbar spine causing his lower extremity weakness and pain. There are degenerative changes in the lumbar spine seen on his pelvis x-ray. This is not something that I manage. Our office his spine surgeon Dr. Sanchez is out of town until Saturday and could potentially evaluate the patient next week when he returns. I will defer to the primary service if they would like evaluation by a spine surgeon sooner and they can make arrangements. Further recommendations in regards to his hip following MRI. Time with Patient: Greater than 30
[2023-10-19] MEDS: METOPROLOL TARTRATE 12.5 MG TAB PO SCH (08:55)
[2023-10-19] MEDS: ATORVASTATIN 20 MG TAB PO SCH (08:55)
[2023-10-19] MEDS: RIVAROXABAN 15 MG TAB PO SCH (08:55)
[2023-10-19] MEDS: lisinopriL 20 MG TAB PO SCH (08:55)
[2023-10-19] MEDS: TAMSULOSIN 0.4 MG CAP.ER.24H PO SCH (08:56)
[2023-10-19] MEDS: CYANOCOBALAMIN 500 MCG TAB PO SCH (08:56)
--- NOTE | 2023-10-19 11:50 | P.PN ---
Subjective Progress Note Date: 10/19/23 Hospital Course: 88-year-old male with history of hypertension, dyslipidemia, atrial fibrillation on Eliquis, BPH, depression presenting with generalized weakness and repeated falls. In the ED, temperature was 99.3, blood pressure 143/79, respiratory rate 18, pulse 91, saturating at 94% on room air. WBC 9.2, hemoglobin 13.3, bicarb 21, creatinine 1.47 around baseline, lactate 1.5, troponin 0.039, urinalysis negative, respiratory viral panel negative. EKG showed atrial fibrillation, but rate controlled. Head CT did not show any acute process. Pelvic x-ray showed mild to moderate bilateral hip osteoarthritis, no fractures, chest x-ray independently interpreted, shows no acute process, right knee and right ankle x- ray showed small knee joint effusion, anterior and lateral soft tissue swelling on the right ankle, no acute osseous abnormality seen. Patient admitted for further workup for weakness. Neurology also consulted. Orthopedic surgery also consulted. Subjective: Patient seen and examined at bedside. No acute events overnight. Pertinent positives and negatives as discussed above, a complete review of systems was performed and all other systems are negative. Vitals Signs Reviewed. General: nontoxic, no distress, appears at stated age Derm: warm, dry Head: atraumatic, normocephalic, symmetric Eyes: EOMI, no lid lag, anicteric sclera, pupils equal round reactive to light ENT: Nose and ears atraumatic Neck: No thyromegaly, supple Mouth: no lip lesion, mucus membranes moist Cardiovascular: S1S2 reg, no murmur, trace peripheral edema Lungs: clear to auscultation bilateral, no rhonchi, no rales, no wheeze, no accessory muscle use Abdominal: soft, nontender to palpation, no guarding, no appreciable organomegaly Ext: no gross muscle atrophy, right lower extremity reduced strength 4/5 Neuro: CN II-XII grossly intact Psych: Alert, oriented, appropriate affect Data Reviewed Today: Pertinent Labs: No new labs Imaging: No new imaging Assessment and Plan: Generalized weakness Right leg weakness Recurrent falls Orthostatic hypotension NSTEMI, nonischemic -Repeat orthostatics ordered -Neurology recommending orthopedic surgery consult -Orthopedics note reviewed, hip MRI pending to rule out any occult fracture, may consider back imaging -Patient has no active chest pain, continue telemetry monitoring -Patient is a very poor historian, denies any syncopal episodes -May need event monitoring outpatient -Echocardiogram did not show any valvular issue Has lower extremity swelling, amlodipine discontinued Chronic: Atrial fibrillation Hypertension Dyslipidemia Depression DVT ppx: Xarelto Code status: Full code Anticipated discharge place: Likely rehab Anticipated discharge time: Pending clinical course Patient failed observation, due to persistent acute right leg weakness, orthostatic hypotension, NSTEMI, patient makes transition to inpatient status. Objective - Vital Signs Vital signs: Vital Signs Temp 98.1 F 10/18/23 19:51 Pulse 88 10/19/23 08:00 Resp 16 10/19/23 08:00 BP 156/88 10/19/23 08:00 Pulse Ox 94 L 10/19/23 08:00 FiO2 Intake & Output 10/18/23 10/19/23 10/19/23 18:59 06:59 18:59 Intake Total 960 1080 358 Output Total 600 300 Balance 360 1080 58 Intake: Oral 960 1080 358 Output: Urine 600 300 Other: Voiding Method Urinal Urinal Urinal Diaper Diaper # Voids 4 - Labs CBC & Chem 7: 10/17/23 07:36 10/18/23 10:36
--- NOTE | 2023-10-19 12:21 | P.PN ---
Progress Note - Text Progress Note Date: 10/19/23 Came to see patient. Patient in MRI. Will see him in the morning.
[2023-10-19] MEDS: CITALOPRAM HYDROBROMIDE 20 MG TAB PO SCH (20:06)
--- NOTE | 2023-10-20 08:25 | P.PN ---
Progress Note - Text Progress Note Date: 10/20/23 Patient was seen at bedside this morning. His main complaint is weakness in the right leg and says he has minimal pain. Clinically there is minimal pain with passive range of motion of the hip or knee. I reviewed the imaging of the MRI, but the radiology read is not yet completed. On my evaluation I do not see any major structural pathology. I would like to wait and see the radiology report prior to making a final recommendation but I do not see any pathology on his plain films or MRI that would require surgical intervention or weightbearing restriction. It is possible that the etiology of his weakness is not structural in the hip, knee or leg.
[2023-10-20] MEDS: HYDROcodone/APAP 5-325MG 1 EACH TAB PO PRN (09:20)
[2023-10-20] MEDS: METOPROLOL TARTRATE 12.5 MG TAB PO SCH (09:20)
[2023-10-20] MEDS: lisinopriL 20 MG TAB PO SCH (09:20)
[2023-10-20] MEDS: RIVAROXABAN 15 MG TAB PO SCH (09:20)
[2023-10-20] MEDS: TAMSULOSIN 0.4 MG CAP.ER.24H PO SCH (09:20)
[2023-10-20] MEDS: ATORVASTATIN 20 MG TAB PO SCH (09:21)
[2023-10-20] MEDS: CYANOCOBALAMIN 500 MCG TAB PO SCH (09:21)
[2023-10-20] MEDS: SODIUM CHLORIDE 0.9% 1,000 ML IV SCH (09:21)
--- NOTE | 2023-10-20 10:52 | MR ---
EXAMINATION TYPE: MR hip RT wo con DATE OF EXAM: 10/19/2023 12:22 PM CLINICAL INDICATION:Male, 88 years old with history of fall, pain, r/u fracture; PHH, Right hip pain, fall. COMPARISON: Radiograph 10/17/2023. TECHNIQUE: Multiplanar multi-sequential magnetic resonance imaging of the right hip without contrast. IV Contrast: cc none FINDINGS: There is degenerative labrum with right superior acetabulum subchondral cystic change, joint space na rrowing with osteophyte formation. There are no bony edema to suggest fractures identified on the rig ht hip. Left hip demonstrates degeneration changes with osteophyte formation and joint space narrowing. There is subcutaneous streaky edema throughout the right lateral thigh. The prostate gland is enlarged measuring up to 5.9 cm in transverse dimension. IMPRESSION: 1. No abnormal bony edema to suggest acute/subacute fracture. 2. Severe degeneration changes of the right hip with subchondral cystic change within the right acet abulum with degenerative labrum. 3. Subcutaneous edema around the right lateral thigh. BE secondary to patient recent fall. 4. Prostatomegaly, Correlate serum PSA
--- NOTE | 2023-10-20 13:10 | P.PN ---
Subjective Progress Note Date: 10/20/23 Hospital Course: 88-year-old male with history of hypertension, dyslipidemia, atrial fibrillation on Eliquis, BPH, depression presenting with generalized weakness and repeated falls. In the ED, temperature was 99.3, blood pressure 143/79, respiratory rate 18, pulse 91, saturating at 94% on room air. WBC 9.2, hemoglobin 13.3, bicarb 21, creatinine 1.47 around baseline, lactate 1.5, troponin 0.039, urinalysis negative, respiratory viral panel negative. EKG showed atrial fibrillation, but rate controlled. Head CT did not show any acute process. Pelvic x-ray showed mild to moderate bilateral hip osteoarthritis, no fractures, chest x-ray independently interpreted, shows no acute process, right knee and right ankle x- ray showed small knee joint effusion, anterior and lateral soft tissue swelling on the right ankle, no acute osseous abnormality seen. Patient admitted for further workup for weakness. Neurology also consulted. Orthopedic surgery also consulted. Subjective: Patient seen and examined at bedside. No acute events overnight. Still having right lower extremity weakness. Pertinent positives and negatives as discussed above, a complete review of systems was performed and all other systems are negative. Vitals Signs Reviewed. General: nontoxic, no distress, appears at stated age Derm: warm, dry Head: atraumatic, normocephalic, symmetric Eyes: EOMI, no lid lag, anicteric sclera, pupils equal round reactive to light ENT: Nose and ears atraumatic Neck: No thyromegaly, supple Mouth: no lip lesion, mucus membranes moist Cardiovascular: S1S2 reg, no murmur, trace peripheral edema Lungs: clear to auscultation bilateral, no rhonchi, no rales, no wheeze, no accessory muscle use Abdominal: soft, nontender to palpation, no guarding, no appreciable organomegaly Ext: no gross muscle atrophy, right lower extremity reduced strength 4/5 Neuro: CN II-XII grossly intact Psych: Alert, oriented, appropriate affect Data Reviewed Today: Pertinent Labs: No new labs Imaging: Hip MRI showed severe degenerative changes of the right hip, subcutaneous edema around the bilateral right lateral thigh secondary to recent fall, prostatomegaly. Assessment and Plan: Generalized weakness Right leg weakness Recurrent falls Orthostatic hypotension NSTEMI, nonischemic -Repeat orthostatics ordered -Neurology following -Orthopedics note reviewed, no structural problem noted with hip knee that would explain his right lower extremity weakness. Recommended outpatient follow-up -He was complaining of some back pain 2 days ago but is not significant to have persistent weakness, no sensory deficits in lower extremities either, may consider back imaging -PT consulted, recommending rehab -Patient has no active chest pain, continue telemetry monitoring -Patient is a very poor historian, denies any syncopal episodes -May need event monitoring outpatient -Echocardiogram did not show any valvular issue Has lower extremity swelling, amlodipine discontinued Chronic: Atrial fibrillation Hypertension Dyslipidemia Depression DVT ppx: Xarelto Code status: Full code Anticipated discharge place: Likely rehab Anticipated discharge time: Pending clinical course Objective - Vital Signs Vital signs: Vital Signs Temp 98.1 F 10/18/23 19:51 Pulse 60 10/20/23 12:00 Resp 18 10/20/23 12:00 BP 97/62 10/20/23 12:00 Pulse Ox 94 L 10/20/23 12:00 FiO2 Intake & Output 10/19/23 10/20/23 10/20/23 18:59 06:59 18:59 Intake Total 834 540 200 Output Total 300 100 Balance 534 440 200 Intake: Oral 834 540 200 Output: Urine 300 100 Other: Voiding Method Urinal Urinal Urinal Diaper Diaper Diaper # Voids 2 - Labs CBC & Chem 7: 10/17/23 07:36 10/18/23 10:36
[2023-10-20] MEDS: CITALOPRAM HYDROBROMIDE 20 MG TAB PO SCH (20:45)
[2023-10-20] MEDS: SENNOSIDES 8.6 MG TAB PO SCH (20:45)
--- NOTE | 2023-10-20 23:32 | P.PN ---
Subjective Progress Note Date: 10/20/23 Patient was seen for a follow-up. Patient is laying comfortably in the bed. He complains of low back pain 03/02. Patient continues to have right leg weakness. Objective - Vital Signs Vital signs: Vital Signs Temp 98.1 F 10/18/23 19:51 Pulse 64 10/20/23 14:07 Resp 18 10/20/23 14:00 BP 97/62 10/20/23 14:07 Pulse Ox 94 L 10/20/23 12:00 FiO2 Intake & Output 10/19/23 10/20/23 10/20/23 18:59 06:59 18:59 Intake Total 834 540 200 Output Total 300 100 700 Balance 534 440 -500 Intake: Oral 834 540 200 Output: Urine 300 100 700 Other: Voiding Method Urinal Urinal Urinal Diaper Diaper Diaper # Voids 2 - Exam Patient's mental status, speech and language functions are normal. Cranial nerves are normal. On muscle strength testing, there is no pronator drift and the strength is normal in arms distally and proximally. In the lower limbs (right/left) hip flexion 2/4, ankle dorsiflexion 5/5. Sensory to touch is equal. - Labs CBC & Chem 7: 10/17/23 07:36 10/18/23 10:36 Assessment and Plan Assessment: * Status post fall, due to slipping in the garage. Patient has subsequently developed pain and weakness in the right leg. Rest of the examination is nonfocal. Examination of the hip elicited significant pain. X-ray shows mild to moderate osteoarthritis of the hips. Patient's right knee is also tender, and swollen. Suspect right leg weakness related to orthopedic issue of the hip +/- knee joint issue. Patient has moderate back pain. Rule out radiculopathy, rule out central cause. * Chronic atrial fibrillation, on Xarelto * Mild to moderate chronic renal insufficiency * Hypertension * Hyperlipidemia Plan: * Orthopedic consult input appreciated. * MRI of the right hip revealed no abnormal bony edema to suggest acute/subacute fracture. Severe degeneration changes of the right hip with subchondral cystic change within the right acetabulum with degenerative labrum. Subcutaneous edema around the right lateral thigh. Prostatomegaly, correlate serum PSA. This later finding to be addressed by IM. * Orthopedic surgery do not believe patient's leg weakness related to the hip. * We will check MRI of the brain and lumbar spine. * Continue Xarelto for stroke prevention related to atrial fibrillation. * Carotid Doppler on 05/16/2023 revealed no evidence for hemodynamically significant stenosis. Antegrade flow in both vertebral arteries. * 2D echo from 04/27/2023 revealed normal left ventricular function with EF 50 to 55%. Mildly increased left ventricular wall thickness. Mild concentric LVH. No obvious regional wall motion abnormalities. Normal left atrial size. Mild to moderate aortic regurgitation. * Vitamin B12 391, borderline, we will start replacement. * PT, OT evaluate gait. * Discussed with primary physician. * Dr. Michael Mcconnell to resume neurology service in the morning.
[2023-10-20 23:38] VITALS: RESP 18
[2023-10-21] MEDS: METOPROLOL TARTRATE 12.5 MG TAB PO SCH (09:00)
[2023-10-21] MEDS: RIVAROXABAN 15 MG TAB PO SCH (09:01)
[2023-10-21] MEDS: ATORVASTATIN 20 MG TAB PO SCH (09:01)
[2023-10-21] MEDS: CYANOCOBALAMIN 500 MCG TAB PO SCH (09:01)
[2023-10-21] MEDS: SENNOSIDES 8.6 MG TAB PO SCH (09:01)
[2023-10-21] MEDS: lisinopriL 20 MG TAB PO SCH (09:01)
[2023-10-21] MEDS: TAMSULOSIN 0.4 MG CAP.ER.24H PO SCH (09:01)
[2023-10-21 11:32] VITALS: PULSE 72
--- NOTE | 2023-10-21 13:11 | P.DS ---
Providers Date of admission: 10/19/23 11:51 Expected date of discharge: 10/21/23 Attending physician: Wayne Leal MD Consults: 10/17/23 10:40 Consult Physician Routine Consulting Provider: Dayton Bernabe Consult Reason/Comments: weakness, right leg Do you want consulting provider notified?: Yes 10/18/23 13:58 Consult Physician Routine Consulting Provider: Ronnie Fuller Consult Reason/Comments: right leg weakness, OA Do you want consulting provider notified?: Yes Primary care physician: Donell Caraballo MD Hospital Course: 88-year-old male with history of hypertension, dyslipidemia, atrial fibrillation on Eliquis, BPH, depression presenting with generalized weakness and repeated falls. In the ED, temperature was 99.3, blood pressure 143/79, respiratory rate 18, pulse 91, saturating at 94% on room air. WBC 9.2, hemoglobin 13.3, bicarb 21, creatinine 1.47 around baseline, lactate 1.5, troponin 0.039, urinalysis negative, respiratory viral panel negative. EKG showed atrial fibrillation, but rate controlled. Head CT did not show any acute process. Pelvic x-ray showed mild to moderate bilateral hip osteoarthritis, no fractures. Chest x-ray showed no acute process. Right knee and right ankle x-ray showed small knee joint effusion, anterior and lateral soft tissue swelling on the right ankle, no acute osseous abnormality seen. Patient admitted for further workup for weakness. Neurology also consulted. Orthopedic surgery also consulted. Troponin mildly elevated at 0.039, repeat 0.051. Never complained of chest pain. Likely due to CKD. Neurology did recommend MRI brain and lumbar spine which is to be done today. Plans for discharge to SNF if MRI results are benign. 10/21 Patient was seen and examined. No complaints. General: nontoxic, no distress, appears at stated age Derm: warm, dry Head: atraumatic, normocephalic, symmetric Eyes: EOMI, no lid lag, anicteric sclera ENT: Nose and ears atraumatic Neck: No thyromegaly, supple Mouth: no lip lesion, mucus membranes moist Cardiovascular: S1S2 reg, no murmur, trace peripheral edema Lungs: clear to auscultation bilateral, no rhonchi, no rales, no wheeze Ext: no gross muscle atrophy, right lower extremity reduced strength 4/5 Psych: Alert, oriented, appropriate affect Discharge Diagnosis: Generalized weakness Right leg weakness Recurrent falls Orthostatic hypotension Elevated Troponin Chronic: Atrial fibrillation Hypertension Dyslipidemia Depression Chronic kidney disease This complex discharge took 35 minutes to complete. Patient Condition at Discharge: Stable Plan - Discharge Summary Discharge Rx Participant: Yes New Discharge Prescriptions: New HYDROcodone/APAP 5-325MG [[place] 5-325] 1 each PO Q4HR PRN #18 tab PRN Reason: Pain Cyanocobalamin [Vitamin B-12] 1,000 mcg PO DAILY tab Sennosides [Senokot] 8.6 mg PO BID tab Continue lisinopriL [Prinivil] 20 mg PO DAILY Rivaroxaban [Xarelto] 15 mg PO DAILY Metoprolol Tartrate [Lopressor] 12.5 mg PO DAILY Citalopram Hydrobromide [CeleXA] 40 mg PO HS amLODIPine [Norvasc] 5 mg PO DAILY Atorvastatin [Lipitor] 20 mg PO DAILY Tamsulosin [Flomax] 0.4 mg PO DAILY Discharge Medication List Atorvastatin [Lipitor] 20 mg PO DAILY 06/23/21 [History] Tamsulosin [Flomax] 0.4 mg PO DAILY 06/23/21 [History] lisinopriL [Prinivil] 20 mg PO DAILY 06/23/21 [History] Metoprolol Tartrate [Lopressor] 12.5 mg PO DAILY 09/07/22 [History] Rivaroxaban [Xarelto] 15 mg PO DAILY 09/07/22 [History] Citalopram Hydrobromide [CeleXA] 40 mg PO HS 04/26/23 [History] amLODIPine [Norvasc] 5 mg PO DAILY 04/26/23 [History] Cyanocobalamin [Vitamin B-12] 1,000 mcg PO DAILY tab 10/21/23 [Rx] HYDROcodone/APAP 5-325MG [[place] 5-325] 1 each PO Q4HR PRN #18 tab 10/21/23 [Rx] Sennosides [Senokot] 8.6 mg PO BID tab 10/21/23 [Rx] Follow up Appointment(s)/Referral(s): Donell Caraballo MD [Primary Care Provider] - 1-2 days [facility] [NON-STAFF] - Discharge Disposition: TRANSFER TO SNF/ECF
[2023-10-21] MEDS: HYDROcodone/APAP 5-325MG 1 EACH TAB PO PRN (13:30)
--- NOTE | 2023-10-21 14:43 | MR ---
EXAMINATION TYPE: MR brain/lspine wo con DATE OF EXAM: 10/21/2023 2:35 PM COMPARISON: 12/05/2012 HISTORY: Right leg weakness, evaluate for stroke vs spinal stenosis. FINDINGS: The ventricles, basal cisterns and sulci overlying the cerebral convexities are moderately enlarged. There is evidence of moderate periventricular white matter ischemic demyelination. Remote deep white matter insults are also noted. No acute edema is seen on diffusion weighted imaging. There is no evidence for midline shift or mass effect. Acute intracranial hemorrhage or extra-axial collection is not evident. The paranasal sinuses and mastoid air cells are well-aerated. IMPRESSION: Age-related atrophic and chronic small vessel ischemic change. No acute intracranial process at this time. EXAMINATION TYPE: MR brain/lspine wo con DATE OF EXAM: 10/21/2023 2:35 PM COMPARISON: NONE HISTORY: Right leg weakness, evaluate for stroke vs spinal stenosis. Multiplanar, MultiSpin echo imaging of the lumbar spine was performed. L1-L2: Moderate disc desiccation. Mild posterior disc bulge. No disc herniation or protrusion. No tj tral stenosis. Mild facet joint arthropathy. L2-L3: Normal disc appearance without desiccation. No herniation, protrusion or disc bulging. No ca nal stenosis is present. Foramina are patent bilaterally. L3-L4: Moderate disc desiccation. Mild posterior disc bulge. No disc herniation or protrusion. No tj tral stenosis. Mild facet joint arthropathy. L4-L5: Moderate disc desiccation. Mild posterior disc bulge. No disc herniation or protrusion. No tj tral stenosis. Mild facet joint arthropathy. L5-S1: Severe disc desiccation. Mild posterior disc bulge. No herniation or protrusion. Facet joint a rthropathy without foraminal encroachment. Lumbar segments are intact. Bone marrow heterogeneity may reflect bone marrow reconversion. Ventral spondylosis. No paraspinal masses are identified. Conus medullaris has a normal appearance. IMPRESSION: 1. Degenerative disc disease without central stenosis or disc herniation.
[2023-10-21 15:17] VITALS: BP 127/63; TEMP 98.1
== END 2023-10-21 16:11 | DRG 554 ==
LOC: EC 07:09 → 5NMEDONC 09:30 → 3SCARD 10:31 → OBSVTOIN 10-19 11:51
PROVIDERS: ADMIT Student in an Organized Health Care Education/Training Program; ATTEND Student in an Organized Health Care Education/Training Program
DX: M16.0 Bilateral primary osteoarthritis of hip (principal); F03.93 Unspecified dementia, unspecified severity, with mood disturbance; I5A Non-ischemic myocardial injury (non-traumatic); I48.20 Chronic atrial fibrillation, unspecified; M17.11 Unilateral primary osteoarthritis, right knee; I35.1 Nonrheumatic aortic (valve) insufficiency; I12.9 Hypertensive chronic kidney disease with stage 1 through stage 4 chronic kidney disease, or unspecified chronic kidney disease; N18.9 Chronic kidney disease, unspecified; Z11.52 Encounter for screening for COVID-19; E78.5 Hyperlipidemia, unspecified; I95.1 Orthostatic hypotension; M11.261 Other chondrocalcinosis, right knee; N40.0 Benign prostatic hyperplasia without lower urinary tract symptoms; Q66.6 Other congenital valgus deformities of feet; M85.861 Other specified disorders of bone density and structure, right lower leg; R29.6 Repeated falls; M54.50 Low back pain, unspecified; Z79.01 Long term (current) use of anticoagulants; Z79.899 Other long term (current) drug therapy; Z87.891 Personal history of nicotine dependence; W06.XXXA Fall from bed, initial encounter; Y92.015 Private garage of single-family (private) house as the place of occurrence of the external cause
CPT/HCPCS: 36415; 70450; 70551; 71045; 72125; 72148; 72170; 80048; 80053; 81003; 82607; 83605; 83735; 84484; 85025; 85610; 85730; 87636; 93005; 93306; 96360; 96361; 99285

== ENCOUNTER 2024-09-23 00:09 | Emergency (ER) | payer MEDICARE ==
[2024-09-23 00:19] VITALS: RESP 18; TEMP 98.6
--- NOTE | 2024-09-23 00:36 | ED ---
General Adult HPI - General Chief complaint: Recheck/Abnormal Lab/Rx Stated complaint: L Leg Edema Time Seen by Provider: 09/23/24 00:21 Source: patient, EMS, RN notes reviewed Mode of arrival: EMS - History of Present Illness Initial comments: 89-year-old male presents to the emergency department for evaluation of left lower extremity edema and elevated blood pressure readings at his living facility. According to the patient's records that were brought with him he underwent an ultrasound Doppler of the left lower extremity yesterday and was negative for DVT. He also underwent laboratory studies at that time. Patient's blood pressure was not significantly elevated upon his presentation in the ED. the patient is denying any complaints currently. - Related Data Home Medications Medication Instructions Recorded Confirmed Atorvastatin [Lipitor] 20 mg PO DAILY 06/23/21 10/17/23 Tamsulosin [Flomax] 0.4 mg PO DAILY 06/23/21 10/17/23 lisinopriL [Prinivil] 20 mg PO DAILY 06/23/21 10/17/23 Metoprolol Tartrate [Lopressor] 12.5 mg PO DAILY 09/07/22 10/17/23 Rivaroxaban [Xarelto] 15 mg PO DAILY 09/07/22 10/17/23 Citalopram Hydrobromide [CeleXA] 40 mg PO HS 04/26/23 10/17/23 amLODIPine [Norvasc] 5 mg PO DAILY 04/26/23 10/17/23 Previous Rx's Medication Instructions Recorded Cyanocobalamin [Vitamin B-12] 1,000 mcg PO DAILY tab 10/21/23 HYDROcodone/APAP 5-325MG [[place] 1 each PO Q4HR PRN #18 tab 10/21/23 5-325] Sennosides [Senokot] 8.6 mg PO BID tab 10/21/23 Allergies Allergy/AdvReac Type Severity Reaction Status Date / Time No Known Allergies Allergy Verified 10/17/23 10:27 Review of Systems ROS Statement: Those systems with pertinent positive or pertinent negative responses have been documented in the HPI. ROS Other: All systems not noted in ROS Statement are negative. Past Medical History Past Medical History: Dementia, Hyperlipidemia, Prostate Disorder, Renal Disease Additional Past Medical History / Comment(s): BPH History of Any Multi-Drug Resistant Organisms: None Reported Past Surgical History: No Surgical Hx Reported Past Anesthesia/Blood Transfusion Reactions: No Reported Reaction Past Psychological History: No Psychological Hx Reported Smoking Status: Former smoker Past Alcohol Use History: Occasional Past Drug Use History: None Reported - Past Family History Mother Family Medical History: Hypertension General Exam Limitations: no limitations General appearance: alert, in no apparent distress Head exam: Present: atraumatic, normocephalic, normal inspection Eye exam: Present: normal appearance, PERRL, EOMI. Absent: scleral icterus, conjunctival injection, periorbital swelling Respiratory exam: Present: normal lung sounds bilaterally. Absent: respiratory distress, wheezes, rales, rhonchi, stridor Cardiovascular Exam: Present: regular rate, normal rhythm, normal heart sounds. Absent: systolic murmur, diastolic murmur, rubs, gallop, clicks Extremities exam: Present: full ROM, normal capillary refill, pedal edema (Left leg). Absent: tenderness, joint swelling, calf tenderness Neurological exam: Present: alert, oriented X3 Psychiatric exam: Present: normal affect, normal mood Skin exam: Present: warm, dry, intact, normal color. Absent: rash Course Vital Signs 09/23/24 09/23/24 00:11 02:07 Temperature 98.6 F Pulse Rate 60 80 Respiratory 18 18 Rate Blood Pressure 130/96 131/86 O2 Sat by Pulse 98 95 Oximetry Medical Decision Making - Medical Decision Making Was pt. sent in by a medical professional or institution (LARRY Means, UM SPECIALIST, urgent care, hospital, or usp...) When possible be specific @ -No Did you speak to anyone other than the patient for history (EMS, parent, family, police, friend...)? What history was obtained from this source @ -No Did you review nursing and triage notes (agree or disagree)? Why? @ -I reviewed and agree with nursing and triage notes Were old charts reviewed (outside hosp., previous admission, EMS record, old EKG, old radiological studies, urgent care reports/EKG's, usp records)? Report findings @ -Labs reviewed revealing no significant leukocytosis Differential Diagnosis (chest pain, altered mental status, abdominal pain women, abdominal pain men, vaginal bleeding, weakness, fever, dyspnea, syncope, headache, dizziness, GI bleed, back pain, seizure, CVA, palpatations, mental health, musculoskeletal)? @ -Differential Musculoskeletal Muscular strain, contusion, ligament sprain, fracture, arthritis, septic arthritis, bursitis, cellulitis, muscle spasm, nerve compression, DVT, arterial occlusion, herpes zoster, electrolyte abnormality, tumor.... This is not meant to be in all inclusive list EKG interpreted by me (3pts min.). @ -EKG at 0037 shows A-fib rate 78, QRS 85, QT/QTc [id number] X-rays interpreted by me (1pt min.). @ -None done CT interpreted by me (1pt min.). @ -None done U/S interpreted by me (1pt. min.). @ -None done What testing was considered but not performed or refused? (CT, X-rays, U/S, labs)? Why? @ -None What meds were considered but not given or refused? Why? @ -None Did you discuss the management of the patient with other professionals (professionals i.e. Dr., PA, UM SPECIALIST, lab, RT, psych nurse, social sciences lecturer, boat master, teacher, executive officer, pillowcase maker)? Give summary @ -No Was smoking cessation discussed for >3mins.? @ -No Was critical care preformed (if so, how long)? @ -No Were there social determinants of health that impacted care today? How? (Homelessness, low income, unemployed, alcoholism, drug addiction, transportation, low edu. Level, literacy, decrease access to med. care, mcc, rehab)? @ -No Was there de-escalation of care discussed even if they declined (Discuss DNR or withdrawal of care, Hospice)? DNR status @ -No What co-morbidities impacted this encounter? (DM, HTN, Smoking, COPD, CAD, Cancer, CVA, ARF, Chemo, Hep., AIDS, mental health diagnosis, sleep apnea, morbid obesity)? @ -None Was patient admitted / discharged? Hospital course, mention meds given and route, prescriptions, significant lab abnormalities, going to OR and other pertinent info. @ -Discharge. Patient presented the emergency department for left lower extremity swelling and elevated blood pressure readings at his living facility. Patient currently does not have any complaints. He had a workup performed outpatient for his leg swelling and currently his blood pressure readings are not significantly elevated at 130/86. Vital signs are overall stable. Patient will be discharged back to his living facility. Patient understanding agreeable with plan. Patient stable at time of discharge. Case discussed with Dr. Hart Undiagnosed new problem with uncertain prognosis? @ -No Drug Therapy requiring intensive monitoring for toxicity (Heparin, Nitro, Insulin, Cardizem)? @ -No Were any procedures done? @ -No Diagnosis/symptom? @ -Left leg edema Acute, or Chronic, or Acute on Chronic? @ -acute Uncomplicated (without systemic symptoms) or Complicated (systemic symptoms)? @ -uncomplicated Side effects of treatment? @ -No Exacerbation, Progression, or Severe Exacerbation? @ -No Poses a threat to life or bodily function? How? (Chest pain, [place], [place], pneumonia, PE, COPD, DKA, ARF, appy, cholecystitis, CVA, Diverticulitis, Homicidal, Suicidal, threat to staff... and all critical care pts) @ -No Disposition Clinical Impression: Left leg swelling Disposition: HOME SELF-CARE Condition: Stable Additional Instructions: Return to the emergency department for new or worsening symptoms. Is patient prescribed a controlled substance at d/c from ED?: No Referrals: Sunny Dukes MD [Primary Care Provider] - 1-2 days
[2024-09-23 02:08] VITALS: BP 131/86; PULSE 80
== END 2024-09-23 02:08 | disposition home or self-care (01) ==
LOC: EC 00:09
DX: M79.89 Other specified soft tissue disorders (principal); Z87.891 Personal history of nicotine dependence
CPT/HCPCS: 93005; 99285

== ENCOUNTER 2024-10-13 15:16 | Inpatient (IN) | payer MEDICARE ==
--- NOTE | 2024-10-13 15:44 | ED ---
Weakness HPI - General Chief complaint: Syncope Stated complaint: lethargic,hypotension Time Seen by Provider: 10/13/24 15:22 Source: patient, EMS, RN notes reviewed, old records reviewed Mode of arrival: EMS Limitations: no limitations - History of Present Illness Initial comments: This is an 89-year-old male to the ER for evaluation patient has history of very weakness poor historian history of dementia low blood pressure with near syncope and presents for evaluation of low blood pressure MD Complaint: generalized weakness, lack of energy, difficulty walking -: hour(s) Location: generalized Severity: severe Severity scale (1-10): 10 Quality: tingling, numbness Consistency: constant Improves with: none Worsens with: none Context: recent illness, history of similar Associated Symptoms: denies other symptoms - Related Data Home Medications Medication Instructions Recorded Confirmed Tamsulosin [Flomax] 0.8 mg PO DAILY 06/23/21 10/13/24 lisinopriL [Prinivil] 20 mg PO DAILY 06/23/21 10/13/24 Rivaroxaban [Xarelto] 15 mg PO HS 09/07/22 10/13/24 Citalopram Hydrobromide [CeleXA] 40 mg PO HS 04/26/23 10/13/24 amLODIPine [Norvasc] 5 mg PO DAILY 04/26/23 10/13/24 Albuterol Nebulized [Ventolin 2.5 mg INHALATION RT-Q6H PRN 10/13/24 10/13/24 Nebulized] Betamethasone Valerate [Luxiq 0.1%] 1 applic TOPICAL BID PRN 10/13/24 10/13/24 Cholecalciferol [Vitamin D3 (25 100 mcg PO DAILY 10/13/24 10/13/24 Mcg = 1000 Iu)] Cyanocobalamin [Vitamin B-12] 500 mcg PO DAILY 10/13/24 10/13/24 Docusate [Colace] 100 mg PO DAILY 10/13/24 10/13/24 Furosemide [Lasix] 20 mg PO DAILY 10/13/24 10/13/24 HYDROcodone/APAP 5-325MG [[place] 1 tab PO Q4HR PRN 10/13/24 10/13/24 5-325] Hydrocortisone Cream 1 applic TOPICAL Q8H PRN 10/13/24 10/13/24 [Hydrocortisone 2.5% Cream] Hydrocortisone Suppository 25 mg RECTAL Q8H PRN 10/13/24 10/13/24 [Anusol-Hc] Metoprolol Succinate (ER) [Toprol 12.5 mg PO DAILY 10/13/24 10/13/24 Xl] Naloxone HCl 4 mg NS DIRECTED PRN 10/13/24 10/13/24 Previous Rx's Medication Instructions Recorded Sennosides [Senokot] 8.6 mg PO BID tab 10/21/23 Allergies Allergy/AdvReac Type Severity Reaction Status Date / Time No Known Allergies Allergy Verified 10/13/24 16:42 Review of Systems ROS Statement: Those systems with pertinent positive or pertinent negative responses have been documented in the HPI. ROS Other: All systems not noted in ROS Statement are negative. Past Medical History Past Medical History: Dementia, Hyperlipidemia, Prostate Disorder, Renal Disease Additional Past Medical History / Comment(s): BPH History of Any Multi-Drug Resistant Organisms: None Reported Past Surgical History: No Surgical Hx Reported Past Anesthesia/Blood Transfusion Reactions: No Reported Reaction Past Psychological History: No Psychological Hx Reported Smoking Status: Former smoker Past Alcohol Use History: Occasional Past Drug Use History: None Reported - Past Family History Mother Family Medical History: Hypertension General Exam General appearance: alert, in no apparent distress Head exam: Present: atraumatic, normocephalic, normal inspection Eye exam: Present: normal appearance, PERRL, EOMI. Absent: scleral icterus, conjunctival injection, periorbital swelling ENT exam: Present: normal exam, mucous membranes moist Neck exam: Present: normal inspection. Absent: tenderness, meningismus, ly mphadenopathy Respiratory exam: Present: normal lung sounds bilaterally. Absent: respiratory distress, wheezes, rales, rhonchi, stridor Cardiovascular Exam: Present: regular rate, normal rhythm, normal heart sounds. Absent: systolic murmur, diastolic murmur, rubs, gallop, clicks GI/Abdominal exam: Present: soft, normal bowel sounds. Absent: distended, tenderness, guarding, rebound, rigid Extremities exam: Present: normal inspection, full ROM, normal capillary refill. Absent: tenderness, pedal edema, joint swelling, calf tenderness Back exam: Present: normal inspection Neurological exam: Present: alert, oriented X3, CN II-XII intact Psychiatric exam: Present: normal affect, normal mood Skin exam: Present: warm, dry, intact, normal color. Absent: rash Course Vital Signs 10/13/24 10/13/24 10/13/24 15:33 16:59 20:52 Temperature 98.6 F 98.7 F Pulse Rate 71 71 75 Respiratory 16 16 18 Rate Blood Pressure 92/69 94/56 114/70 O2 Sat by Pulse 94 L 98 Oximetry 10/14/24 10/14/24 10/14/24 00:35 01:18 03:23 Temperature Pulse Rate 72 84 73 Respiratory 16 16 16 Rate Blood Pressure 114/70 104/72 122/65 O2 Sat by Pulse 95 95 95 Oximetry 10/14/24 10/14/24 10/14/24 04:20 06:06 09:00 Temperature 98.3 F Pulse Rate 64 71 72 Respiratory 18 16 17 Rate Blood Pressure 106/77 123/94 113/85 O2 Sat by Pulse 95 96 95 Oximetry 10/14/24 10/14/24 10/14/24 18:04 18:55 20:28 Temperature 98.1 F 98.7 F Pulse Rate 75 73 Respiratory 17 24 18 Rate Blood Pressure 124/76 108/68 O2 Sat by Pulse 96 87 L 96 Oximetry 10/14/24 10/15/24 23:05 00:54 Temperature 99.4 F 99.2 F Pulse Rate 71 68 Respiratory 20 19 Rate Blood Pressure 108/75 130/80 O2 Sat by Pulse 98 96 Oximetry - Reevaluation(s) Reevaluation #1: 10/13/24 17:44 Medical records reviewed Reevaluation #2: 10/13/24 17:44 Symptoms unchanged Reevaluation #3: 10/13/24 17:44 Patient informed of results and questions answered Reevaluation #4: Was pt. sent in by a medical professional or institution (, PA, VICE ADMIRAL, urgent care, hospital, or half-way...) When possible be specific @ -no Did you speak to anyone other than the patient for history (EMS, parent, family, police, friend...)? What history was obtained from this source @ -no Did you review nursing and triage notes (agree or disagree)? Why? @ -agree Are old charts reviewed (outside hosp., previous admission, EMS record, old EKG, old radiological studies, urgent care reports/EKG's, half-way records)? Report findings @ -yes Differential Diagnosis (chest pain, altered mental status, abdominal pain women, abdominal pain men, vaginal bleeding, weakness, fever, dyspnea, syncope, headache, dizziness, GI bleed, back pain, seizure, CVA, palpatations, mental health, musculoskeletal)? @ -prior EKG interpreted by me (3pts min.). @ -yes X-rays interpreted by me (1pt min.). @ -no CT interpreted by me (1pt min.). @ -no U/S interpreted by me (1pt. min.). @ -no What testing was considered but not performed or refused? (CT, X-rays, U/S, labs)? Why? @ -none What meds were considered but not given or refused? Why? @ -none Did you discuss the management of the patient with other professionals (professionals i.e. , PA, VICE ADMIRAL, lab, RT, psych nurse, social media job titles, liquid center assembler, te acher, public affairs officer, case maker)? Give summary @ -no Was smoking cessation discussed for >3mins.? @ -no Was critical care preformed (if so, how long)? @ -no Were there social determinants of health that impacted care today? How? (Homelessness, low income, unemployed, alcoholism, drug addiction, transportation, low edu. Level, literacy, decrease access to med. care, mcc, rehab)? @ -none Was there de-escalation of care discussed even if they declined (Discuss DNR or withdrawal of care, Hospice)? DNR status @ -no What co-morbidities impacted this encounter? (DM, HTN, Smoking, COPD, CAD, Cancer, CVA, ARF, Chemo, Hep., AIDS, mental health diagnosis, sleep apnea, morbid obesity)? @ -none Was patient admitted / discharged? Hospital course, mention meds given and route, prescriptions, significant lab abnormalities, going to OR and other pertinent info. @ - 89 male to the ER for evaluation patient presents to the ER today for evaluation of near syncopal event low blood pressure positive UTI. Patient given resuscitation and IV antibiotics Admitted Undiagnosed new problem with uncertain prognosis? @ -no Drug Therapy requiring intensive monitoring for toxicity (Heparin, Nitro, In sulin, Cardizem)? @ -no Were any procedures done? @ -no Diagnosis/symptom? @ -UTI weakness and altered mental status Acute, or Chronic, or Acute on Chronic? @ -Acute Uncomplicated (without systemic symptoms) or Complicated (systemic symptoms)? @ -Complicated Side effects of treatment? @ -no Exacerbation, Progression, or Severe Exacerbation? @ -exacerbation Poses a threat to life or bodily function? How? (Chest pain, [place], [place], pneumonia, PE, COPD, DKA, ARF, appy, cholecystitis, CVA, Diverticulitis, Homicidal, Suicidal, threat to staff... and all critical care pts) @ -yes extremes of age Reevaluation #5: Differential Weakness: Hypoglycemia, shock, sepsis, hyponatremia, anemia, infection, [place], ETOH, adverse medicine reaction, overdose, stroke, this is not meant to be an all-inclusive list. - Consultations Consultation #1: Spoke with many physicians who agreed to admit this patient EKG Findings - EKG Comments: EKG Findings:: EKG is A-fib 74 QRS 83 QTc 406 - EKG Results: EKG: interpreted by LOW Medical Decision Making - Medical Decision Making 89 male to the ER for evaluation patient presents to the ER today for evaluation of near syncopal event low blood pressure positive UTI. Patient given resuscitation and IV antibiotics - Lab Data Result diagrams: 10/15/24 05:50 10/18/24 15:12 Lab Results 10/13/24 10/13/24 10/13/24 Range/Units 16:06 16:06 16:06 WBC 17.7 H (3.8-10.6) k/uL RBC 3.34 L (4.30-5.90) m/uL Hgb 11.0 L (13.0-17.5) gm/dL Hct 32.8 L (39.0-53.0) % MCV 98.3 (80.0-100.0) fL MCH 33.0 (25.0-35.0) pg MCHC 33.6 (31.0-37.0) g/dL RDW 12.7 (11.5-15.5) % Plt Count 201 (150-450) k/uL MPV 8.2 Neutrophils % 84 % Lymphocytes % 11 % Monocytes % 4 % Eosinophils % 0 % Basophils % 0 % Neutrophils # 14.8 H (1.3-7.7) k/uL Lymphocytes # 1.9 (1.0-4.8) k/uL Monocytes # 0.8 (0-1.0) k/uL Eosinophils # 0.1 (0-0.7) k/uL Basophils # 0.0 (0-0.2) k/uL Sodium 135 L (137-145) mmol/L Potassium 4.4 (3.5-5.1) mmol/L Chloride 103 (98-107) mmol/L Carbon Dioxide 25 (22-30) mmol/L Anion Gap 7 mmol/L BUN 41 H (9-20) mg/dL Creatinine 2.05 H (0.66-1.25) mg/dL Est GFR (CKD-EPI)AfAm 33 (>60 ml/min/1.73 sqM) Est GFR (CKD-EPI)NonAf 28 (>60 ml/min/1.73 sqM) Glucose 101 H (74-99) mg/dL Calcium 8.9 (8.4-10.2) mg/dL Phosphorus 4.1 (2.5-4.5) mg/dL Magnesium 2.3 (1.6-2.3) mg/dL Total Bilirubin 0.9 (0.2-1.3) mg/dL AST 28 (17-59) U/L ALT 22 (4-49) U/L Alkaline Phosphatase 92 (38-126) U/L Troponin I 0.066 H* (0.000-0.034) ng/mL NT-Pro-B Natriuret Pep 1200 pg/mL Total Protein 5.9 L (6.3-8.2) g/dL Albumin 3.1 L (3.5-5.0) g/dL Urine Color Urine Appearance (Clear) Urine pH (5.0-8.0) Ur Specific [place] (1.001-1.035) Urine Protein (Negative) Urine Glucose (UA) (Negative) Urine Ketones (Negative) Urine Blood (Negative) Urine Nitrite (Negative) Urine Bilirubin (Negative) Urine Urobilinogen (<2.0) mg/dL Ur Leukocyte Esterase (Negative) Urine RBC (0-5) /hpf Urine WBC (0-5) /hpf Ur Squamous Epith Cells (0-4) /hpf Urine Bacteria (None) /hpf Urine Mucus (None) /hpf 10/13/24 Range/Units 17:06 WBC (3.8-10.6) k/uL RBC (4.30-5.90) m/uL Hgb (13.0-17.5) gm/dL Hct (39.0-53.0) % MCV (80.0-100.0) fL MCH (25.0-35.0) pg MCHC (31.0-37.0) g/dL RDW (11.5-15.5) % Plt Count (150-450) k/uL MPV Neutrophils % % Lymphocytes % % Monocytes % % Eosinophils % % Basophils % % Neutrophils # (1.3-7.7) k/uL Lymphocytes # (1.0-4.8) k/uL Monocytes # (0-1.0) k/uL Eosinophils # (0-0.7) k/uL Basophils # (0-0.2) k/uL Sodium (137-145) mmol/L Potassium (3.5-5.1) mmol/L Chloride (98-107) mmol/L Carbon Dioxide (22-30) mmol/L Anion Gap mmol/L BUN (9-20) mg/dL Creatinine (0.66-1.25) mg/dL Est GFR (CKD-EPI)AfAm (>60 ml/min/1.73 sqM) Est GFR (CKD-EPI)NonAf (>60 ml/min/1.73 sqM) Glucose (74-99) mg/dL Calcium (8.4-10.2) mg/dL Phosphorus (2.5-4.5) mg/dL Magnesium (1.6-2.3) mg/dL Total Bilirubin (0.2-1.3) mg/dL AST (17-59) U/L ALT (4-49) U/L Alkaline Phosphatase (38-126) U/L Troponin I (0.000-0.034) ng/mL NT-Pro-B Natriuret Pep pg/mL Total Protein (6.3-8.2) g/dL Albumin (3.5-5.0) g/dL Urine Color Yellow Urine Appearance Cloudy (Clear) Urine pH 5.0 (5.0-8.0) Ur Specific [place] 1.023 (1.001-1.035) Urine Protein Trace H (Negative) Urine Glucose (UA) Negative (Negative) Urine Ketones Negative (Negative) Urine Blood Moderate H (Negative) Urine Nitrite Negative (Negative) Urine Bilirubin Negative (Negative) Urine Urobilinogen <2.0 (<2.0) mg/dL Ur Leukocyte Esterase Large H (Negative) Urine RBC 20 H (0-5) /hpf Urine WBC 124 H (0-5) /hpf Ur Squamous Epith Cells <1 (0-4) /hpf Urine Bacteria Occasional H (None) /hpf Urine Mucus Few H (None) /hpf - EKG Data -: EKG Interpreted by Me Disposition Clinical Impression: Generalized weakness, Near syncope, UTI (urinary tract infection), Dehydration Disposition: ADMITTED IP TO THIS HOSP Condition: Fair Is patient prescribed a controlled substance at d/c from ED?: No Time of Disposition: 17:40
[2024-10-13 16:24] LABS: Basophils % (A) 0 %; Eosinophils # (A) 0.1 k/uL (0-0.7); Eosinophils % (A) 0 %; HCT 32.8 % (39.0-53.0); Lymphocytes # (A) 1.9 k/uL (1.0-4.8); Lymphocytes % (A) 11 %; MCHC 33.6 g/dL (31.0-37.0); MCV 98.3 fL (80.0-100.0); Mean Platelet Volume 8.2; Monocytes # (A) 0.8 k/uL (0-1.0); Monocytes % (A) 4 %; Neutrophils # (A) 14.8 k/uL (1.3-7.7); Neutrophils % (A) 84 %; Platelet Count 201 k/uL (150-450); RBC 3.34 m/uL (4.30-5.90); RDW 12.7 % (11.5-15.5); WBC 17.7 k/uL (3.8-10.6)
[2024-10-13 16:53] LABS: ALT 22 U/L (4-49); AST 28 U/L (17-59); African American GFR (CKD) 33 (>60 ml/min/1.73 sqM); Albumin 3.1 g/dL (3.5-5.0); Alkaline Phosphatase 92 U/L (38-126); Anion Gap 7 mmol/L; Blood Urea Nitrogen 41 mg/dL (9-20); Calcium 8.9 mg/dL (8.4-10.2); Carbon Dioxide 25 mmol/L (22-30); Chloride 103 mmol/L (98-107); Glucose 101 mg/dL (74-99); Non-African American GFR(CKD) 28 (>60 ml/min/1.73 sqM); Phosphorus 4.1 mg/dL (2.5-4.5); Potassium 4.4 mmol/L (3.5-5.1); Sodium 135 mmol/L (137-145); Total Bilirubin 0.9 mg/dL (0.2-1.3); Total Protein 5.9 g/dL (6.3-8.2)
[2024-10-13 16:58] LABS: NT-Pro-B-Type Natriuretic Pept 1200 pg/mL
[2024-10-13] MEDS: SODIUM CHLORIDE 0.9% 1,000 ML IV STA (17:01)
[2024-10-13 17:25] LABS: Appearance,Urine Cloudy (Clear); Bacteria,Urine Occasional /hpf; Bilirubin,Urine Negative (Negative); Blood,Urine Moderate (Negative); Color,Urine Yellow; Glucose,Urine (UA) Negative (Negative); Ketones,Urine Negative (Negative); Leukocyte Esterase,Urine Large (Negative); Mucus,Urine Few /hpf; Nitrite,Urine Negative (Negative); Protein,Urine Trace (Negative); RBC,Urine 20 /hpf (0-5); Specific Gravity,Urine 1.023 (1.001-1.035); Squamous Epithelial Cell,Urine <1 /hpf (0-4); Urobilinogen,Urine <2.0 mg/dL (<2.0); WBC,Urine 124 /hpf (0-5)
[2024-10-13] MEDS ORDERED: ONDANSETRON 4 MG/2 ML VIAL IVP PRN (17:41)
[2024-10-13] MEDS ORDERED: NALOXONE 0.4 MG/ML 1 ML VIAL IV PRN (17:41)
[2024-10-13] MEDS ORDERED: MORPHINE SULFATE 4 MG/ML SYRINGE IV PRN (17:41)
[2024-10-13 18:05] LABS: Magnesium 2.3 mg/dL (1.6-2.3)
[2024-10-13] MEDS: SODIUM CHLORIDE 0.9% 1,000 ML IV SCH (19:40)
[2024-10-14 07:52] LABS: Basophils % (A) 0 %; Eosinophils # (A) 0.2 k/uL (0-0.7); Eosinophils % (A) 2 %; HCT 33.1 % (39.0-53.0); HGB 10.7 gm/dL (13.0-17.5); Lymphocytes # (A) 1.2 k/uL (1.0-4.8); Lymphocytes % (A) 12 %; MCH 32.6 pg (25.0-35.0); MCHC 32.4 g/dL (31.0-37.0); MCV 100.7 fL (80.0-100.0); Mean Platelet Volume 7.8; Monocytes # (A) 0.5 k/uL (0-1.0); Monocytes % (A) 5 %; Neutrophils # (A) 8.3 k/uL (1.3-7.7); Neutrophils % (A) 81 %; Platelet Count 204 k/uL (150-450); RBC 3.29 m/uL (4.30-5.90); RDW 12.2 % (11.5-15.5); WBC 10.3 k/uL (3.8-10.6)
[2024-10-14 08:03] LABS: ALT 25 U/L (4-49); AST 29 U/L (17-59); African American GFR (CKD) 43 (>60 ml/min/1.73 sqM); Albumin 2.8 g/dL (3.5-5.0); Alkaline Phosphatase 90 U/L (38-126); Anion Gap 6 mmol/L; Blood Urea Nitrogen 37 mg/dL (9-20); Calcium 8.8 mg/dL (8.4-10.2); Carbon Dioxide 25 mmol/L (22-30); Chloride 108 mmol/L (98-107); Glucose 93 mg/dL (74-99); Magnesium 2.1 mg/dL (1.6-2.3); Non-African American GFR(CKD) 37 (>60 ml/min/1.73 sqM); Phosphorus 3.6 mg/dL (2.5-4.5); Potassium 4.4 mmol/L (3.5-5.1); Sodium 139 mmol/L (137-145); Total Bilirubin 0.7 mg/dL (0.2-1.3); Total Protein 5.4 g/dL (6.3-8.2)
[2024-10-14] MEDS: PANTOPRAZOLE 40 MG/10 ML VIAL IV SCH (09:19)
[2024-10-14] MEDS ORDERED: HYDROCORTISONE SUPPOSITORY 25 MG SUPP RECTAL PRN (10:03)
[2024-10-14] MEDS: SENNOSIDES 8.6 MG TAB PO SCH (11:29)
[2024-10-14] MEDS: TAMSULOSIN 0.4 MG CAP.ER.24H PO SCH (11:30)
[2024-10-14] MEDS: METOPROLOL SUCCINATE (ER) 25 MG TAB.ER.24H PO SCH (11:30)
[2024-10-14] MEDS: CYANOCOBALAMIN 500 MCG TAB PO SCH (11:30)
[2024-10-14 13:19] LABS: Appearance,Urine Turbid (Clear); Bilirubin,Urine Negative (Negative); Blood,Urine Large (Negative); Color,Urine Yellow; Glucose,Urine (UA) Negative (Negative); Ketones,Urine Negative (Negative); Leukocyte Esterase,Urine Large (Negative); Mucus,Urine Rare /hpf; Nitrite,Urine Negative (Negative); PH, Urine 5.5 (5.0-8.0); Protein,Urine 2+ (Negative); RBC,Urine 86 /hpf (0-5); Specific Gravity,Urine 1.018 (1.001-1.035); Urobilinogen,Urine <2.0 mg/dL (<2.0); WBC,Urine >182 /hpf (0-5)
[2024-10-14] MEDS ORDERED: NALOXONE 0.4 MG/ML 1 ML VIAL IV PRN (13:56)
[2024-10-14] MEDS ORDERED: ALBUTEROL NEBULIZED 2.5 MG/3 ML INHALATION PRN (14:06)
--- NOTE | 2024-10-14 14:11 | P.HPIM ---
History of Present Illness H&P Date: 10/14/24 Patient is an 89-year-old male with past medical history of hypertension, dyslipidemia, atrial fibrillation on Eliquis, BPH, depression, recurrent falls, dementia who presented for evaluation of near syncope and low blood pressure. History was obtained from chart review and patient's daughter who is also his legal guardian. Patient is residing at [facility] with his for about 1 year, he had Dasilva catheter placed around [place] time due to urinary retention, was supposed to follow-up with Dr. Ojeda, have prostate ultrasound. It is unclear whether the catheter was exchanged, he was also started on antibiotics 1 week ago with initial improvement, however, yesterday was noted to be more weak, also [facility] staff reported redness, enlargement of the scrotum along with tenderness. Blood pressure was lowered in the route of BP meds. Patient has baseline dementia, progressively worsening, confused, mostly has recollection of past eventsr But not oriented to time/ place On my evaluation, patient is pleasantly confused, not sure why he was in the hospital, but did not know that he is in the hospital, did not know the name, could not tell me the date. Of note, sound physician assumed care at 11:30 AM on 10/14/2024, patient was initially admitted under another physician who reassigned the patient to us this morning. On arrival patient was afebrile, with some blood pressure 92/69, was resuscitated with IV fluids, BP improved to 120s over 90s. He was afebrile, normal heart rate, satting well on room air. Initial lab work showed leukocytosis that resolved, hemoglobin 11.0, low sodium 135 improved to 139 after IV fluids, RUSTY with a creatinine of 2.05 with most improved on IV fluids to 1.63, troponin elevated at 0.066, trending down to 0.036, no ischemic EKG changes. Initial UA was obtained before Dasilva catheter was exchanged controlled pyuria, hematuria, bacteriuria, catheter exchanged and 10/14, repeat UA imaging showed significant pyuria. Patient was started on IV ceftriaxone, urology consulted due to scrotal enlargement Pertinent positives and negatives as discussed in HPI, a complete review of systems was performed and all other systems are negative. Patient seen and examined at bedside. Denies any complaints Vital signs reviewed General: nontoxic, no distress, appears at stated age Derm: warm, dry Head: atraumatic, normocephalic, symmetric Eyes: EOMI, no lid lag, anicteric sclera, pupils equal round reactive to light ENT: Nose and ears atraumatic Neck: No thyromegaly, supple Mouth: no lip lesion, mucus membranes moist Cardiovascular: S1S2 reg, no murmur, no edema Lungs: clear to auscultation bilateral, no rhonchi, no rales, no wheeze, no accessory muscle use Abdominal: soft, nontender to palpation, no guarding, no appreciable organomegaly. 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 likely due to dehydration -Continue IV fluids, monitor BMP, hold Lasix and lisinopril hypertension dyslipidemia atrial fibrillation on Xarelto depression dementia -Resume Coreg, hold Norvasc, monitor blood pressures, hold Lasix in the ED, hold lisinopril in the settings of UTI, The patient is admitted with an anticipated [greater] than 2 midnight stay as [inpatient/observation] status for evaluation of UTI, scrotal enlargement Surrogate decision-maker: Patient's daughter CODE STATUS:[] DNR/DNI, confirmed with patient daughter DVT prophylaxis: Xarelto Anticipated discharge date: 10/[address]: Back to [facility] A total of [40 minutes was spent on the care of this complex patient more than 50% of the time was spent in counseling and care coordination. Past Medical History Past Medical History: Dementia, Hyperlipidemia, Prostate Disorder, Renal Disease Additional Past Medical History / Comment(s): BPH History of Any Multi-Drug Resistant Organisms: None Reported Past Surgical History: No Surgical Hx Reported Past Anesthesia/Blood Transfusion Reactions: No Reported Reaction Past Psychological History: No Psychological Hx Reported Smoking Status: Former smoker Past Alcohol Use History: Occasional Past Drug Use History: None Reported - Past Family History Mother Family Medical History: Hypertension Medications and Allergies Home Medications Medication Instructions Recorded Confirmed Type Tamsulosin [Flomax] 0.8 mg PO DAILY 06/23/21 10/13/24 History lisinopriL [Prinivil] 20 mg PO DAILY 06/23/21 10/13/24 History Rivaroxaban [Xarelto] 15 mg PO HS 09/07/22 10/13/24 History Citalopram Hydrobromide [CeleXA] 40 mg PO HS 04/26/23 10/13/24 History amLODIPine [Norvasc] 5 mg PO DAILY 04/26/23 10/13/24 History Sennosides [Senokot] 8.6 mg PO BID tab 10/21/23 10/13/24 Rx Albuterol Nebulized [Ventolin 2.5 mg INHALATION RT-Q6H PRN 10/13/24 10/13/24 History Nebulized] Betamethasone Valerate [Luxiq 0.1%] 1 applic TOPICAL BID PRN 10/13/24 10/13/24 History Cholecalciferol [Vitamin D3 (25 100 mcg PO DAILY 10/13/24 10/13/24 History Mcg = 1000 Iu)] Cyanocobalamin [Vitamin B-12] 500 mcg PO DAILY 10/13/24 10/13/24 History Docusate [Colace] 100 mg PO DAILY 10/13/24 10/13/24 History Furosemide [Lasix] 20 mg PO DAILY 10/13/24 10/13/24 History HYDROcodone/APAP 5-325MG [[place] 1 tab PO Q4HR PRN 10/13/24 10/13/24 History 5-325] Hydrocortisone Cream 1 applic TOPICAL Q8H PRN 10/13/24 10/13/24 History [Hydrocortisone 2.5% Cream] Hydrocortisone Suppository 25 mg RECTAL Q8H PRN 10/13/24 10/13/24 History [Anusol-Hc] Metoprolol Succinate (ER) [Toprol 12.5 mg PO DAILY 10/13/24 10/13/24 History Xl] Naloxone HCl 4 mg NS DIRECTED PRN 10/13/24 10/13/24 History Allergies Allergy/AdvReac Type Severity Reaction Status Date / Time No Known Allergies Allergy Verified 10/13/24 16:42 Physical Exam Vitals: Vital Signs Temp Pulse Resp BP Pulse Ox 10/14/24 09:00 98.3 F 72 17 113/85 95 10/14/24 06:06 71 16 123/94 96 10/14/24 04:20 64 18 106/77 95 10/14/24 03:23 73 16 122/65 95 10/14/24 01:18 84 16 104/72 95 10/14/24 00:35 72 16 114/70 95 10/13/24 20:52 98.7 F 75 18 114/70 98 10/13/24 16:59 71 16 94/56 10/13/24 15:33 98.6 F 71 16 92/69 94 L Intake and Output 10/13/24 10/14/24 10/14/24 22:59 06:59 14:59 Output Total 400 370 Balance -400 -370 Output: Urine 400 370 Other: Weight 90.718 kg Results CBC & Chem 7: 10/14/24 06:56 10/14/24 06:56 Labs: Abnormal Lab Results - Last 24 Hours (Table) 10/13/24 10/13/24 10/13/24 Range/Units 16:06 16:06 16:06 WBC 17.7 H (3.8-10.6) k/uL RBC 3.34 L (4.30-5.90) m/uL Hgb 11.0 L (13.0-17.5) gm/dL Hct 32.8 L (39.0-53.0) % MCV (80.0-100.0) fL Neutrophils # 14.8 H (1.3-7.7) k/uL Sodium 135 L (137-145) mmol/L Chloride (98-107) mmol/L BUN 41 H (9-20) mg/dL Creatinine 2.05 H (0.66-1.25) mg/dL Glucose 101 H (74-99) mg/dL Troponin I 0.066 H* (0.000-0.034) ng/mL Total Protein 5.9 L (6.3-8.2) g/dL Albumin 3.1 L (3.5-5.0) g/dL Urine Protein (Negative) Urine Blood (Negative) Ur Leukocyte Esterase (Negative) Urine RBC (0-5) /hpf Urine WBC (0-5) /hpf Urine WBC Clumps (None) /hpf Urine Bacteria (None) /hpf Urine Mucus (None) /hpf 0110/14/24 10/14/24 Range/Units 17:06 06:56 06:56 WBC (3.8-10.6) k/uL RBC 3.29 L (4.30-5.90) m/uL Hgb 10.7 L (13.0-17.5) gm/dL Hct 33.1 L (39.0-53.0) % MCV 100.7 H (80.0-100.0) fL Neutrophils # 8.3 H (1.3-7.7) k/uL Sodium (137-145) mmol/L Chloride 108 H (98-107) mmol/L BUN 37 H (9-20) mg/dL Creatinine 1.63 H (0.66-1.25) mg/dL Glucose (74-99) mg/dL Troponin I (0.000-0.034) ng/mL Total Protein 5.4 L (6.3-8.2) g/dL Albumin 2.8 L (3.5-5.0) g/dL Urine Protein Trace H (Negative) Urine Blood Moderate H (Negative) Ur Leukocyte Esterase Large H (Negative) Urine RBC 20 H (0-5) /hpf Urine WBC 124 H (0-5) /hpf Urine WBC Clumps (None) /hpf Urine Bacteria Occasional H (None) /hpf Urine Mucus Few H (None) /hpf 10/14/24 10/14/24 Range/Units 12:11 13:05 WBC (3.8-10.6) k/uL RBC (4.30-5.90) m/uL Hgb (13.0-17.5) gm/dL Hct (39.0-53.0) % MCV (80.0-100.0) fL Neutrophils # (1.3-7.7) k/uL Sodium (137-145) mmol/L Chloride (98-107) mmol/L BUN (9-20) mg/dL Creatinine (0.66-1.25) mg/dL Glucose (74-99) mg/dL Troponin I 0.036 H* (0.000-0.034) ng/mL Total Protein (6.3-8.2) g/dL Albumin (3.5-5.0) g/dL Urine Protein 2+ H (Negative) Urine Blood Large H (Negative) Ur Leukocyte Esterase Large H (Negative) Urine RBC 86 H (0-5) /hpf Urine WBC >182 H (0-5) /hpf Urine WBC Clumps Few H (None) /hpf Urine Bacteria (None) /hpf Urine Mucus Rare H (None) /hpf
[2024-10-14] MEDS: CITALOPRAM HYDROBROMIDE 20 MG TAB PO SCH (20:23)
[2024-10-14] MEDS: RIVAROXABAN 15 MG TAB PO SCH (20:23)
[2024-10-15 06:28] LABS: Basophils % (A) 0 %; Eosinophils # (A) 0.2 k/uL (0-0.7); Eosinophils % (A) 3 %; HCT 32.4 % (39.0-53.0); HGB 10.4 gm/dL (13.0-17.5); Lymphocytes # (A) 1.8 k/uL (1.0-4.8); Lymphocytes % (A) 23 %; MCHC 32.2 g/dL (31.0-37.0); MCV 99.4 fL (80.0-100.0); Mean Platelet Volume 8.3; Monocytes # (A) 0.5 k/uL (0-1.0); Monocytes % (A) 6 %; Neutrophils # (A) 5.2 k/uL (1.3-7.7); Neutrophils % (A) 67 %; Platelet Count 231 k/uL (150-450); RBC 3.26 m/uL (4.30-5.90); RDW 12.5 % (11.5-15.5); WBC 7.8 k/uL (3.8-10.6)
[2024-10-15 06:45] LABS: African American GFR (CKD) 49 (>60 ml/min/1.73 sqM); Anion Gap 6 mmol/L; Blood Urea Nitrogen 36 mg/dL (9-20); Carbon Dioxide 23 mmol/L (22-30); Chloride 109 mmol/L (98-107); Glucose 96 mg/dL (74-99); Non-African American GFR(CKD) 42 (>60 ml/min/1.73 sqM); Potassium 4.3 mmol/L (3.5-5.1); Sodium 138 mmol/L (137-145)
--- NOTE | 2024-10-15 13:45 | P.PN ---
Subjective Progress Note Date: 10/15/24 Hospital Course: Patient is an 89-year-old male with past medical history of hypertension, dysl ipidemia, atrial fibrillation on Eliquis, BPH, depression, recurrent falls, dementia who presented for evaluation of near syncope and low blood pressure. History was obtained from chart review and patient's daughter who is also his legal guardian. Patient is residing at senior care with his for about 1 year, he had Dasilva catheter placed around [place] time due to urinary retention, was supposed to follow-up with Dr. Ojeda, have prostate ultrasound. It is unclear whether the catheter was exchanged, he was also started on antibiotics 1 week ago with initial improvement, however, yesterday was noted to be more weak, also senior care staff reported redness, enlargement of the scrotum along with tenderness. Blood pressure was lowered in the route of BP meds. Patient has baseline dementia, progressively worsening, confused, mostly has recollection of past eventsr But not oriented to time/ place On my evaluation, patient is pleasantly confused, not sure why he was in the hospital, but did not know that he is in the hospital, did not know the name, could not tell me the date. Of note, sound physician assumed care at 11:30 AM on 10/14/2024, patient was initially admitted under another physician who reassigned the patient to us this morning. On arrival patient was afebrile, with some blood pressure 92/69, was resuscitated with IV fluids, BP improved to 120s over 90s. He was afebrile, normal heart rate, satting well on room air. Initial lab work showed leukocytosis that resolved, hemoglobin 11.0, low sodium 135 improved to 139 after IV fluids, RUSTY with a creatinine of 2.05 with most improved on IV fluids to 1.63, troponin elevated at 0.066, trending down to 0.036, no ischemic EKG changes. Initial UA was obtained before Dasilva catheter was exchanged controlled pyuria, hematuria, bacteriuria, catheter exchanged and 10/14, repeat UA imaging showed significant pyuria. Patient was started on IV ceftriaxone, urology consulted due to scrotal enlargement Pertinent Imaging: No new imaging Subjective: Patient was seen and examined at bedside, he denies any complaints Pertinent positives and negatives as discussed above, a complete review of systems was performed and all other systems are negative. Vitals Signs Reviewed. General: nontoxic, no distress, appears at stated age Derm: warm, dry Head: atraumatic, normocephalic, symmetric Eyes: EOMI, no lid lag, anicteric sclera, pupils equal round reactive to light ENT: Nose and ears atraumatic Neck: No thyromegaly, supple Mouth: no lip lesion, mucus membranes moist Cardiovascular: S1S2 reg, no murmur, no edema Lungs: clear to auscultation bilateral, no rhonchi, no rales, no wheeze, no accessory muscle use Abdominal: soft, nontender to palpation, no guarding, no appreciable organomegaly. Dasilva catheter present Ext: no gross muscle atrophy, muscle strength muscle strength 5 out of 5 in all 4 extremities, no contractures Neuro: CN II-XII grossly intact Psych: Oriented to self, pleasantly confused Data Reviewed Today: Pertinent Labs: No leukocytosis, hemoglobin stable 13.1, creatinine normal, so dium normal 138, patient 4.3, trending down 1.47 today Assessment and Plan: Complicated UTI in the settings of indwelling urinary catheter History of urinary retention Scrotal enlargement Continue ceftriaxone SOT 10/13 -Follow-up urine cultures - Continue Flomax -urology consult 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 likely due to dehydration, improving -Continue IV fluids, monitor BMP, resume lisinopril, continue holding Lasix while on IV fluids, may restart tomorrow -Creatinine around baseline around 1.4 hypertension dyslipidemia atrial fibrillation on Xarelto depression dementia -Resume Coreg, hold Norvasc, monitor blood pressures, hold Lasix , resume lisinopril DVT ppx: Xarelto Anticipated discharge place: pending urology eval Anticipated discharge time: pending urology eval Objective - Vital Signs Vital signs: Vital Signs Temp 97.4 F L 10/15/24 08:00 Pulse 64 10/15/24 12:00 Resp 16 10/15/24 12:00 BP 148/72 10/15/24 12:00 Pulse Ox 95 10/15/24 12:00 FiO2 Intake & Output 10/14/24 10/15/24 10/15/24 18:59 06:59 18:59 Intake Total 240 Output Total 350 Balance -350 240 Weight 90.5 kg Intake: Oral 240 Output: Urine 350 Other: Voiding Method Indwelling Catheter Indwelling Catheter - Labs CBC & Chem 7: 10/15/24 05:50 10/15/24 05:50 Labs: Abnormal Lab Results - Last 24 Hours (Table) 10/15/24 10/15/24 Range/Units 05:50 05:50 RBC 3.26 L (4.30-5.90) m/uL Hgb 10.4 L (13.0-17.5) gm/dL Hct 32.4 L (39.0-53.0) % Chloride 109 H (98-107) mmol/L BUN 36 H (9-20) mg/dL Creatinine 1.47 H (0.66-1.25) mg/dL
[2024-10-15] MEDS: lisinopriL 20 MG TAB PO SCH (16:36)
[2024-10-16 07:34] LABS: African American GFR (CKD) 56 (>60 ml/min/1.73 sqM); Anion Gap 5 mmol/L; Blood Urea Nitrogen 28 mg/dL (9-20); Carbon Dioxide 25 mmol/L (22-30); Chloride 109 mmol/L (98-107); Glucose 95 mg/dL (74-99); Non-African American GFR(CKD) 48 (>60 ml/min/1.73 sqM); Potassium 4.5 mmol/L (3.5-5.1); Sodium 139 mmol/L (137-145)
--- NOTE | 2024-10-16 13:00 | P.GSCN ---
History of Present Illness Consult date: 10/16/24 Reason for Consult: Urinary Retention, Scrotal Swelling Requesting physician: Wayne Leal History of present illness: The patient is an 89-year-old male with a history of hypertension, dyslipidemia, atrial fibrillation, BPH, depression, and dementia. He resides at a shelter with his for the past year, and had a Dasilva catheter placed on 09/19/2024 for urinary retention. At that time, the patient was experiencing small amounts of urinary incontinence and a Dasilva catheter was placed, with 400 cc of urine return. He now presents with generalized weakness and hypotension. He has an appointment scheduled to see Dr. Rosado on October 23, 2024. He has noted recent scrotal swelling but denies pain. Review of the patient's chart reveals that he underwent transurethral resection of a low-grade, noninvasive bladder cancer in 1997. He had similar recurrences in 2000 and 2004. Review of Systems - Genitourinary Reports as per HPI Past Medical History Past Medical History: Atrial Fibrillation, Dementia, Hyperlipidemia, Prostate Disorder, Renal Disease Additional Past Medical History / Comment(s): BPH History of Any Multi-Drug Resistant Organisms: None Reported Past Surgical History: No Surgical Hx Reported Past Anesthesia/Blood Transfusion Reactions: No Reported Reaction Past Psychological History: No Psychological Hx Reported Smoking Status: Never smoker Past Alcohol Use History: Occasional Additional Past Alcohol Use History / Comment(s): 1 beer and 1 shot of whiskey a day. stopped smoking 30 years ago Past Drug Use History: None Reported - Past Family History Mother Family Medical History: Hypertension Medications and Allergies Home Medications Medication Instructions Recorded Confirmed Type Tamsulosin [Flomax] 0.8 mg PO DAILY 06/23/21 10/13/24 History lisinopriL [Prinivil] 20 mg PO DAILY 06/23/21 10/13/24 History Rivaroxaban [Xarelto] 15 mg PO HS 09/07/22 10/13/24 History Citalopram Hydrobromide [CeleXA] 40 mg PO HS 04/26/23 10/13/24 History amLODIPine [Norvasc] 5 mg PO DAILY 04/26/23 10/13/24 History Sennosides [Senokot] 8.6 mg PO BID tab 10/21/23 10/13/24 Rx Albuterol Nebulized [Ventolin 2.5 mg INHALATION RT-Q6H PRN 10/13/24 10/13/24 History Nebulized] Betamethasone Valerate [Luxiq 0.1%] 1 applic TOPICAL BID PRN 10/13/24 10/13/24 History Cholecalciferol [Vitamin D3 (25 100 mcg PO DAILY 10/13/24 10/13/24 History Mcg = 1000 Iu)] Cyanocobalamin [Vitamin B-12] 500 mcg PO DAILY 10/13/24 10/13/24 History Docusate [Colace] 100 mg PO DAILY 10/13/24 10/13/24 History Furosemide [Lasix] 20 mg PO DAILY 10/13/24 10/13/24 History HYDROcodone/APAP 5-325MG [[place] 1 tab PO Q4HR PRN 10/13/24 10/13/24 History 5-325] Hydrocortisone Cream 1 applic TOPICAL Q8H PRN 10/13/24 10/13/24 History [Hydrocortisone 2.5% Cream] Hydrocortisone Suppository 25 mg RECTAL Q8H PRN 10/13/24 10/13/24 History [Anusol-Hc] Metoprolol Succinate (ER) [Toprol 12.5 mg PO DAILY 10/13/24 10/13/24 History Xl] Naloxone HCl 4 mg NS DIRECTED PRN 10/13/24 10/13/24 History Allergies Allergy/AdvReac Type Severity Reaction Status Date / Time No Known Allergies Allergy Verified 10/13/24 16:42 Surgical - Exam Vital Signs Temp Pulse Resp BP Pulse Ox 98.6 F 71 16 92/69 94 L 10/13/24 15:33 10/13/24 15:33 10/13/24 15:33 10/13/24 15:33 10/13/24 15:33 - General well developed, well nourished, no distress - Respiratory normal respiratory effort - Genitourinary Penoscrotal edema is noted. Examination of the testes is limited, but is unremarkable. There is no cellulitis, fluctuance, or drainage. There is no lower extremity edema noted. - Rectum Rectum: normal sphincter tone, no masses, other (Prostate mildly enlarged but smooth) - Psychiatric oriented to time, oriented to person, oriented to place, speech is normal, memory intact Results - Labs 10/15/24 05:50 10/16/24 06:25 Microbiology - Last 24 Hours (Table) 10/14/24 20:50 Urine Culture - Final Urine,Catheterized 10/14/24 13:05 Urine Culture - Final Urine,Catheterized Assessment and Plan (1) Retention of urine, unspecified Current Visit: Yes Status: Acute Code(s): R33.9 - RETENTION OF URINE, UNSPECIFIED SNOMED Code(s): 506818235 (2) Scrotal edema Current Visit: Yes Status: Acute Code(s): N50.89 - OTHER SPECIFIED DISORDERS OF THE MALE GENITAL ORGANS SNOMED Code(s): 14009431 Plan: - The Dasilva catheter will be removed tomorrow morning for a voiding trial. - Continue tamsulosin. - Scrotal ultrasound has been ordered to rule out intrascrotal pathology. Time with Patient: Greater than 30
[2024-10-16] MEDS: HYDROcodone/APAP 5-325MG 1 EACH TAB PO PRN (13:05)
--- NOTE | 2024-10-16 13:45 | US ---
EXAMINATION TYPE: US scrotum with doppler. DATE OF EXAM: 10/16/2024 COMPARISON: NONE CLINICAL INDICATION: Male, 89 years old with history of Scrotal swelling; scrotal pain x 1 week TECHNIQUE: Grayscale, color Doppler and spectral Doppler imaging of the scrotum. FINDINGS: EXAM MEASUREMENTS: TESTICLES: Right Testicle: 4.3 x 3.0 x 2.2 cm Left Testicle: 4.7 x 2.6 x 2.3 cm EPIDIDYMIS HEAD: Right Epididymis: 1.2 cm, appears heterogeneous Left Epididymis: 1.6 cm Doppler performed to assess for testicular vascularity; good bilateral color flow and spectral wavefo george are seen. Presence of hydroceles: yes bilaterally Presence of varicoceles: no IMPRESSION: Moderate to large size bilateral scrotal fluid collection or hydroceles greater on the le ft. No asymmetric increased or decreased blood flow seen. [facility], , 10/16/2024 1:43 PM
--- NOTE | 2024-10-16 14:02 | P.PN ---
Subjective Progress Note Date: 10/16/24 Hospital Course: Patient is an 89-year-old male with past medical history of hypertension, dysl ipidemia, atrial fibrillation on Eliquis, BPH, depression, recurrent falls, dementia who presented for evaluation of near syncope and low blood pressure. History was obtained from chart review and patient's daughter who is also his legal guardian. [facility], he had Dasilva catheter placed around [place] time due to urinary retention, was supposed to follow-up with Dr. Ojeda, have prostate ultrasound. It is unclear whether the catheter was exchanged, he was also started on antibiotics 1 week ago with initial improvement, however, yesterday was noted to be more weak, also [facility] staff reported redness, enlargement of the scrotum along with tenderness. Blood pressure was lowered in the route of BP meds. Patient has baseline dementia, progressively worsening, confused, mostly has recollection of past eventsr But not oriented to time/ place On my evaluation, patient is pleasantly confused, not sure why he was in the hospital, but did not know that he is in the hospital, did not know the name, could not tell me the date. Of note, sound physician assumed care at 11:30 AM on 10/14/2024, patient was initially admitted under another physician who reassigned the patient to us this morning. On arrival patient was afebrile, with some blood pressure 92/69, was resuscitated with IV fluids, BP improved to 120s over 90s. He was afebrile, normal heart rate, satting well on room air. Initial lab work showed leukocytosis that resolved, hemoglobin 11.0, low sodium 135 improved to 139 after IV fluids, RUSTY with a creatinine of 2.05 with most improved on IV fluids to 1.63, troponin elevated at 0.066, trending down to 0.036, no ischemic EKG changes. Initial UA was obtained before Dasilva catheter was exchanged controlled pyuria, hematuria, bacteriuria, catheter exchanged and 10/14, repeat UA imaging showed significant pyuria. Urine cultures negative, ceftriaxone discontinued 10/12 Patient was started on IV ceftriaxone, urology consulted due to scrotal enlargement, plan for scrotal ultrasound, Dasilva removal 10/17 in a.m. Patient status changed to inpatient as he needs to stay for further urology evaluation and rule out intrascrotal pathology, Dasilva removal, void trial Pertinent Imaging: Scrotal ultrasound: Moderate to large sized bilateral scrotal fluid collection greater on the left, no symmetric increased or decreased blood flow seen. Subjective: Again denies any complaints today Pertinent positives and negatives as discussed above, a complete review of systems was performed and all other systems are negative. Vitals Signs Reviewed. General: nontoxic, no distress, appears at stated age Derm: warm, dry Head: atraumatic, normocephalic, symmetric Eyes: EOMI, no lid lag, anicteric sclera, pupils equal round reactive to light ENT: Nose and ears atraumatic Neck: No thyromegaly, supple Mouth: no lip lesion, mucus membranes moist Cardiovascular: S1S2 reg, no murmur, no edema Lungs: clear to auscultation bilateral, no rhonchi, no rales, no wheeze, no accessory muscle use Abdominal: soft, nontender to palpation, no guarding, no appreciable organomegaly. Dasilva catheter present Ext: no gross muscle atrophy, muscle strength muscle strength 5 out of 5 in all 4 extremities, no contractures Neuro: CN II-XII grossly intact Psych: Oriented to self, pleasantly confused Data Reviewed Today: Pertinent Labs: Normal sodium and potassium, creatinine continues to improve 1.31 today Assessment and Plan: UTI ruled out History of urinary retention with Dasilva catheter in place Scrotal enlargement 2/2 Moderate to large sized bilateral scrotal fluid collection -Discontinue ceftriaxone - Continue Flomax -urology consult: Scrotal ultrasound ordered, plan to remove Dasilva 10/12 5 AM, void trials 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 likely due to dehydration, resolved -Discontinue IV fluids, monitor BMP, resume lisinopril, continue holding Lasix while on IV fluids, may restart tomorrow -Creatinine around baseline around 1.4 hypertension dyslipidemia atrial fibrillation on Xarelto depression dementia -Resume Coreg, hold Norvasc, monitor blood pressures, hold Lasix , resume lisinopril DVT ppx: Xarelto Anticipated discharge place: [Back to his living facility] Anticipated discharge time: 10/17 Objective - Vital Signs Vital signs: Vital Signs Temp 97.5 F L 10/16/24 11:21 Pulse 116 H 10/16/24 11:21 Resp 16 10/16/24 11:21 BP 115/81 10/16/24 11:21 Pulse Ox 96 10/16/24 11:21 FiO2 Intake & Output 10/15/24 10/16/24 10/16/24 18:59 06:59 18:59 Intake Total 681 046 8558 Output Total 700 1100 Balance 720 -460 100 Weight 89 kg Intake: IV 10 Invasive Line 1 10 Intake, IV Titration 950 Amount Sodium Chloride 0.9% 1, 900 000 ml @ 75 mls/hr IV . [id number] [facility], [facility] Rx#:[id number] cefTRIAXone 2 gm In 50 Sodium Chloride 0.9% 50 ml @ 100 mls/hr IVPB Q24HR [facility] Rx#:[id number] Oral 720 240 240 Output: Urine 700 1100 Uretheral (Dasilva) 1100 Other: Voiding Method Indwelling Catheter Indwelling Catheter Indwelling Catheter - Labs CBC & Chem 7: 10/15/24 05:50 10/16/24 06:25 Labs: Abnormal Lab Results - Last 24 Hours (Table) 10/16/24 Range/Units 06:25 Chloride 109 H (98-107) mmol/L BUN 28 H (9-20) mg/dL Creatinine 1.31 H (0.66-1.25) mg/dL Microbiology - Last 24 Hours (Table) 10/14/24 20:50 Urine Culture - Final Urine,Catheterized 10/14/24 13:05 Urine Culture - Final Urine,Catheterized
--- NOTE | 2024-10-17 12:06 | P.PN ---
Subjective Progress Note Date: 10/17/24 Principal diagnosis: Scrotal edema, urinary retention Scrotal ultrasound performed yesterday showed no evidence of intrascrotal pathology. The Dasilva catheter has been removed, and the patient is voiding without difficulty. He is incontinent of urine. 2 bladder scans have shown less than 150 cc. Objective - Vital Signs Vital signs: Vital Signs Temp 98.2 F 10/17/24 09:35 Pulse 85 10/17/24 09:35 Resp 18 10/17/24 09:35 BP 93/58 10/17/24 09:35 Pulse Ox 94 L 10/17/24 09:35 FiO2 Intake & Output 10/16/24 10/17/24 10/17/24 18:59 06:59 18:59 Intake Total 1380 10 240 Output Total 1100 0 Balance 280 10 240 Weight 89.5 kg Intake: IV 10 10 Invasive Line 1 10 10 Intake, IV Titration 950 Amount Sodium Chloride 0.9% 1, 900 000 ml @ 75 mls/hr IV . [id number] [facility] Rx#:[id number] cefTRIAXone 2 gm In 50 Sodium Chloride 0.9% 50 ml @ 100 mls/hr IVPB Q24HR [facility] Rx#:[id number] Oral 420 240 Output: Gastric Drainage 0 Urine 1100 0 Uretheral (Dasilva) 1100 Stool 0 Urine/Stool Mix 0 Emesis 0 Oral Regurgitation 0 Other 0 Other: Voiding Method Indwelling Catheter Incontinent Incontinent # Voids 1 0 # Bowel Movements 0 - Constitutional General appearance: Present: average body habitus, cooperative, no acute distress - Labs CBC & Chem 7: 10/15/24 05:50 10/16/24 06:25 Assessment and Plan (1) Retention of urine, unspecified Current Visit: Yes Status: Acute Code(s): R33.9 - RETENTION OF URINE, UNSPECIFIED SNOMED Code(s): 019938335 (2) Scrotal edema Current Visit: Yes Status: Acute Code(s): N50.89 - OTHER SPECIFIED DISORDERS OF THE MALE GENITAL ORGANS SNOMED Code(s): 71211745 Plan: - Continue tamsulosin. - Patient is to be transferred to [facility] on October 19, 2024. He should continue to receive tamsulosin. If he develops urinary retention, Dasilva catheter replacement using a coud tip Dasilva catheter will be required.
--- NOTE | 2024-10-17 13:59 | P.PN ---
Subjective Progress Note Date: 10/17/24 Hospital Course: Patient is an 89-year-old male with past medical history of hypertension, dysl ipidemia, atrial fibrillation on Eliquis, BPH, depression, recurrent falls, dementia who presented for evaluation of near syncope and low blood pressure. History was obtained from chart review and patient's daughter who is also his legal guardian. [facility] about [facility], he had Dasilva catheter placed around [place] time due to urinary retention, was supposed to follow-up with Dr. Ojeda, have prostate ultrasound. It is unclear whether the catheter was exchanged, he was also started on antibiotics 1 week ago with initial improvement, however, yesterday was noted to be more weak, also [facility] staff reported redness, enlargement of the scrotum along with tenderness. Blood pressure was lowered in the route of BP meds. Patient has baseline dementia, progressively worsening, confused, mostly has recollection of past eventsr But not oriented to time/ place Of note, sound physician assumed care at 11:30 AM on 10/14/2024, patient was initially admitted under another physician who reassigned the patient to us this morning. On arrival patient was afebrile, with some blood pressure 92/69, was resuscitated with IV fluids, BP improved to 120s over 90s. He was afebrile, normal heart rate, satting well on room air. Initial lab work showed leukocytosis that resolved, hemoglobin 11.0, low sodium 135 improved to 139 after IV fluids, RUSTY with a creatinine of 2.05 with most improved on IV fluids to 1.63, troponin elevated at 0.066, trending down to 0.036, no ischemic EKG changes. Initial UA was obtained before Dasilva catheter was exchanged controlled pyuria, hematuria, bacteriuria, catheter exchanged and 10/14, repeat UA imaging showed significant pyuria. Urine cultures negative, ceftriaxone discontinued 10/12 Patient was started on IV ceftriaxone, urology consulted due to scrotal enlargement, plan for scrotal ultrasound, Dasilva removal 10/17 in a.m. Patient status changed to inpatient as he needs to stay for further urology evaluation and rule out intrascrotal pathology, Dasilva removal, void trial. Dasilva removal was done 10/16 overnight, patient is incontinent, no urinary retention reported. Urology followed up, patient to continue tamsulosin, if he develops urinary retention, Dasilva catheter placement using a coud tip Dasilva catheter will be required. Notified by case management that patient needs prior authorization to go back to [facility], process initiated 10/17, likely discharge 10/19. Medically stable for discharge Medication changes: Lisinopril discontinued due to soft BP, Lasix still on hold, metoprolol on hold, will likely not resume at discharge Subjective: Denies any complaints today Pertinent positives and negatives as discussed above, a complete review of systems was performed and all other systems are negative. Vitals Signs Reviewed. General: nontoxic, no distress, appears at stated age Derm: warm, dry Head: atraumatic, normocephalic, symmetric Eyes: EOMI, no lid lag, anicteric sclera, pupils equal round reactive to light ENT: Nose and ears atraumatic Neck: No thyromegaly, supple Mouth: no lip lesion, mucus membranes moist Cardiovascular: S1S2 reg, no murmur, no edema Lungs: clear to auscultation bilateral, no rhonchi, no rales, no wheeze, no accessory muscle use Abdominal: soft, nontender to palpation, no guarding, no appreciable organomegaly. Dasilva catheter present Ext: no gross muscle atrophy, muscle strength muscle strength 5 out of 5 in all 4 extremities, no contractures Neuro: CN II-XII grossly intact Psych: Oriented to self, pleasantly confused Data Reviewed Today: Pertinent Labs: Normal sodium and potassium, creatinine continues to improve 1.31 today Assessment and Plan: UTI ruled out History of urinary retention with Dasilva catheter in place Scrotal enlargement 2/2 Moderate to large sized bilateral scrotal fluid collection -Discontinue ceftriaxone - Continue Flomax -urology consult: Continue Flomax, will need coud tip Dasilva if continues to have urinary retention 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 likely due to dehydration, resolved -Discontinue IV fluids, monitor BMP, resume lisinopril, continue holding Lasix while on IV fluids, may restart tomorrow -Creatinine around baseline around 1.4 hypertension: Discontinue lisinopril dyslipidemia atrial fibrillation on Xarelto depression dementia -Resume Coreg, hold Norvasc, monitor blood pressures, hold Lasix , resume lisinopril DVT ppx: Xarelto Anticipated discharge place: [Back to his living facility] Anticipated discharge time: 10/17 stable for discharge, likely back to [facility] on 10/19, prior authorization in process Objective - Vital Signs Vital signs: Vital Signs Temp 99.5 F 10/17/24 12:15 Pulse 77 10/17/24 12:15 Resp 16 10/17/24 12:15 BP 95/60 10/17/24 12:15 Pulse Ox 95 10/17/24 12:15 FiO2 Intake & Output 10/16/24 10/17/24 10/17/24 18:59 06:59 18:59 Intake Total 1380 10 240 Output Total 1100 0 Balance 280 10 240 Weight 89.5 kg Intake: IV 10 10 Invasive Line 1 10 10 Intake, IV Titration 950 Amount Sodium Chloride 0.9% 1, 900 000 ml @ 75 mls/hr IV . [id number] [facility] Rx#:[id number] cefTRIAXone 2 gm In 50 Sodium Chloride 0.9% 50 ml @ 100 mls/hr IVPB Q24HR [facility] Rx#:[id number] Oral 420 240 Output: Gastric Drainage 0 Urine 1100 0 Uretheral (Dasilva) 1100 Stool 0 Urine/Stool Mix 0 Emesis 0 Oral Regurgitation 0 Other 0 Other: Voiding Method Indwelling Catheter Incontinent Incontinent # Voids 1 0 # Bowel Movements 0 - Labs CBC & Chem 7: 10/15/24 05:50 10/16/24 06:25
--- NOTE | 2024-10-18 12:45 | P.PN ---
Subjective Progress Note Date: 10/18/24 Hospital Course: Patient is an 89-year-old male with past medical history of hypertension, dyslipidemia, atrial fibrillation on Eliquis, BPH, depression, recurrent falls, dementia who presented for evaluation of near syncope and low blood pressure. History was obtained from chart review and patient's daughter who is also his legal guardian. Patient is residing at [facility]term with his for about 1 year, he had Dasilva catheter placed around [place] time due to urinary retention, was supposed to follow-up with Dr. Ojeda, have prostate ultrasound. It is unclear whether the catheter was exchanged, he was also started on antibiotics 1 week ago with initial improvement, however, yesterday was noted to be more weak, also long-term staff reported redness, enlargement of the scrotum along with tenderness. Blood pressure was lowered in the route of BP meds. Patient has baseline dementia, progressively worsening, confused, mostly has recollection of past eventsr But not oriented to time/ place Of note, sound physician assumed care at 11:30 AM on 10/14/2024, patient was initially admitted under another physician who reassigned the patient to us this morning. On arrival patient was afebrile, with some blood pressure 92/69, was resuscitated with IV fluids, BP improved to 120s over 90s. He was afebrile, normal heart rate, satting well on room air. Initial lab work showed leukocytosis that resolved, hemoglobin 11.0, low sodium 135 improved to 139 after IV fluids, RUSTY with a creatinine of 2.05 with most improved on IV fluids to 1.63, troponin elevated at 0.066, trending down to 0.036, no ischemic EKG changes. Initial UA was obtained before Dasilva catheter was exchanged controlled pyuria, hematuria, bacteriuria, catheter exchanged and 10/14, repeat UA imaging showed significant pyuria. Urine cultures negative, ceftriaxone discontinued 10/12 Patient was started on IV ceftriaxone, urology consulted due to scrotal enlargement, plan for scrotal ultrasound, Dasilva removal 10/17 in a.m. Patient status changed to inpatient as he needs to stay for further urology evaluation and rule out intrascrotal pathology, Dasilva removal, void trial. Dasilva removal was done 10/16 overnight, patient is incontinent, no urinary retention reported. Urology followed up, patient to continue tamsulosin, if he develops urinary retention, Dasilva catheter placement using a coud tip Dasilva catheter will be required. Notified by case management that patient needs prior authorization to go back to [facility], process initiated 10/17, likely discharge 10/19. Medically stable for discharge Medication changes: Lisinopril discontinued due to soft BP, Lasix still on hold, metoprolol on hold, will likely not resume at discharge Subjective: Denies any complaints today Pertinent positives and negatives as discussed above, a complete review of systems was performed and all other systems are negative. Vitals Signs Reviewed. General: nontoxic, no distress, appears at stated age Derm: warm, dry Head: atraumatic, normocephalic, symmetric Eyes: EOMI, no lid lag, anicteric sclera, pupils equal round reactive to light ENT: Nose and ears atraumatic Neck: No thyromegaly, supple Mouth: no lip lesion, mucus membranes moist Cardiovascular: S1S2 reg, no murmur, no edema Lungs: clear to auscultation bilateral, no rhonchi, no rales, no wheeze, no accessory muscle use Abdominal: soft, nontender to palpation, no guarding, no appreciable organomegaly. Dasilva catheter present Ext: no gross muscle atrophy, muscle strength muscle strength 5 out of 5 in all 4 extremities, no contractures Neuro: CN II-XII grossly intact Psych: Oriented to self, pleasantly confused Data Reviewed Today: Pertinent Labs: No new blood work Assessment and Plan: UTI ruled out History of urinary retention with Dasilva catheter in place Scrotal enlargement 2/2 Moderate to large sized bilateral scrotal fluid collection -Discontinue ceftriaxone - Continue Flomax -urology consult: Continue Flomax, will need coud tip Dasilva if continues to have urinary retention -Incontinent of urine, continue bladder scans 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 likely due to dehydration, resolved -Discontinue IV fluids, monitor BMP, resume lisinopril, continue holding Lasix while on IV fluids, may restart tomorrow -Creatinine around baseline around 1.4 hypertension: Discontinue lisinopril dyslipidemia atrial fibrillation on Xarelto depression dementia -Hold Coreg, hold Norvasc, monitor blood pressures, hold Lasix , resume lisinopril DVT ppx: Xarelto Anticipated discharge place: [Back to his living facility] Anticipated discharge time: 10/17 stable for discharge, likely back to [facility] on 10/19, prior authorization in process Objective - Vital Signs Vital signs: Vital Signs Temp 98.5 F 10/18/24 08:15 Pulse 76 10/18/24 08:15 Resp 18 10/18/24 08:15 BP 128/73 10/18/24 08:15 Pulse Ox 98 10/18/24 08:15 FiO2 Intake & Output 10/17/24 10/18/24 10/18/24 18:59 06:59 18:59 Intake Total 1320 10 240 Output Total 0 210 250 Balance 1320 -200 -10 Weight 88.3 kg Intake: IV 10 Invasive Line 1 10 Oral 1320 240 Output: Gastric Drainage 0 Urine 0 210 250 Stool 0 Urine/Stool Mix 0 Emesis 0 Oral Regurgitation 0 Other 0 Other: Voiding Method Incontinent Incontinent Incontinent External Catheter External Catheter # Voids 1 # Bowel Movements 0 - Labs CBC & Chem 7: 10/15/24 05:50 10/16/24 06:25
--- NOTE | 2024-10-18 12:53 | P.PN ---
Subjective Progress Note Date: 10/18/24 Principal diagnosis: Scrotal edema, urinary retention Scrotal ultrasound performed on 10/16/2024 showed no evidence of intrascrotal pathology. The Dasilva catheter remains out, and the patient is voiding without difficulty. He is incontinent of urine. His most recent bladder scan showed approximately 180 cc. Objective - Vital Signs Vital signs: Vital Signs Temp 97.7 F 10/18/24 03:53 Pulse 75 10/18/24 03:53 Resp 18 10/18/24 03:53 BP 131/81 10/18/24 03:53 Pulse Ox 96 10/18/24 03:53 FiO2 Intake & Output 10/17/24 10/18/24 10/18/24 18:59 06:59 18:59 Intake Total 1320 10 240 Output Total 0 210 250 Balance 1320 -200 -10 Weight 88.3 kg Intake: IV 10 Invasive Line 1 10 Oral 1320 240 Output: Gastric Drainage 0 Urine 0 210 250 Stool 0 Urine/Stool Mix 0 Emesis 0 Oral Regurgitation 0 Other 0 Other: Voiding Method Incontinent Incontinent External Catheter # Voids 1 # Bowel Movements 0 - Constitutional General appearance: Present: average body habitus - Psychiatric Psychiatric: Present: A&O x's 3 - Labs CBC & Chem 7: 10/15/24 05:50 10/16/24 06:25 Assessment and Plan (1) Retention of urine, unspecified Current Visit: Yes Status: Acute Code(s): R33.9 - RETENTION OF URINE, UNSPECIFIED SNOMED Code(s): 122166450 (2) Scrotal edema Current Visit: Yes Status: Acute Code(s): N50.89 - OTHER SPECIFIED DISORDERS OF THE MALE GENITAL ORGANS SNOMED Code(s): 09575886 Plan: - Continue tamsulosin. - Patient is to be transferred to [facility] on October 19, 2024. He should continue to receive tamsulosin. If he develops urinary retention, Dasilva catheter replacement using a coud tip Dasilva catheter will be required. - F/U with me in 3 weeks, sooner prn.
[2024-10-18 16:06] LABS: African American GFR (CKD) 49 (>60 ml/min/1.73 sqM); Anion Gap 8 mmol/L; Blood Urea Nitrogen 31 mg/dL (9-20); Calcium 9.1 mg/dL (8.4-10.2); Carbon Dioxide 21 mmol/L (22-30); Chloride 110 mmol/L (98-107); Glucose 127 mg/dL (74-99); Non-African American GFR(CKD) 43 (>60 ml/min/1.73 sqM); Potassium 4.4 mmol/L (3.5-5.1); Sodium 139 mmol/L (137-145)
[2024-10-19 10:12] VITALS: TEMP 97.9
[2024-10-19 13:55] VITALS: BP 108/77; PULSE 82; RESP 19
--- NOTE | 2024-10-19 14:20 | P.DS ---
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 History was obtained from chart review and patient's daughter who is also his legal guardian. Patient is residing at snf with his for about 1 year, he had Dasilva catheter placed around Ol[place] time due to urinary retention, was supposed to follow-up with Dr. Ojeda, have prostate ultrasound. It is unclear whether the catheter was exchanged, he was also started on antibiotics 1 week ago with initial improvement, however, yesterday was noted to be more weak, also snf staff reported redness, enlargement of the scrotum along with tenderness. Blood pressure was lowered in the route of BP meds. Patient has baseline dementia, progressively worsening, confused, mostly has recollection of past eventsr But not oriented to time/ place Of note, sound physician assumed care at 11:30 AM on 10/14/2024, patient was initially admitted under another physician who reassigned the patient to us this morning. On arrival patient was afebrile, with some blood pressure 92/69, was resuscitated with IV fluids, BP improved to 120s over 90s. He was afebrile, normal heart rate, satting well on room air. Initial lab work showed leukocytosis that resolved, hemoglobin 11.0, low sodium 135 improved to 139 after IV fluids, RUSTY with a creatinine of 2.05 with most improved on IV fluids to 1.63, troponin elevated at 0.066, trending down to 0.036, no ischemic EKG changes. Initial UA was obtained before Dasilva catheter was exchanged controlled pyuria, hematuria, bacteriuria, catheter exchanged and 10/14, repeat UA imaging showed significant pyuria. Urine cultures negative, ceftriaxone discontinued 10/12 Patient was started on IV ceftriaxone, urology consulted due to scrotal enlargement, plan for scrotal ultrasound, Dasilva removal 10/17 in a.m. Patient status changed to inpatient as he needs to stay for further urology evaluation and rule out intrascrotal pathology, Dasilva removal, void trial. Dasilva removal was done 10/16 overnight, patient is incontinent, no urinary retention reported. Urology followed up, patient to continue tamsulosin, if he develops urinary retention, Dasilva catheter placement using a coud tip Dasilva catheter will be required. Notified by case management that patient needs prior authorization to go back to [facility], Medication changes: Lisinopril discontinued due to soft BP, Lasix discontinued, amlodipine discontinued, metoprolol resumed. Patient seen and examined at bedside. Vital signs reviewed and stable. General: [nontoxic], [no distress], [appears at stated age] Derm: [warm], [dry] Head: [atraumatic], [normocephalic], [symmetric] Eyes: [EOMI], [no lid lag], [anicteric sclera] Mouth: [no lip lesion], [mucus membranes moist] Cardiovascular: [S1S2 reg], [no murmur] Lungs: [CTA bilateral], [no rhonchi, no rales] , [no accessory muscle use] Abdominal: [soft], [ nontender to palpation], [no guarding], [no appreciable organomegaly] Ext: [no gross muscle atrophy], [no edema], [no contractures] Neuro: [ CN II-XI grossly intact], [no focal neuro deficits] Psych: [Alert, pleasantly confused A total of 40 minutes of time were spent preparing this complex discharge summary. Patient was discharged on 10/19/2024. Patient Condition at Discharge: Fair Plan - Discharge Summary Discharge Rx Participant: No New Discharge Prescriptions: Continue Rivaroxaban [Xarelto] 15 mg PO HS Citalopram Hydrobromide [CeleXA] 40 mg PO HS Hydrocortisone Suppository [Anusol-Hc] 25 mg RECTAL Q8H PRN PRN Reason: Hemorrhoids Naloxone HCl 4 mg NS DIRECTED PRN PRN Reason: OVERDOSE Hydrocortisone Cream [Hydrocortisone 2.5% Cream] 1 applic TOPICAL Q8H PRN PRN Reason: Hemorrhoids Betamethasone Valerate [Luxiq 0.1%] 1 applic TOPICAL BID PRN PRN Reason: IRRITATION AFTER SHAVING Metoprolol Succinate (ER) [Toprol XL] 12.5 mg PO DAILY Cholecalciferol [Vitamin D3 (25 Mcg = 1000 Iu)] 100 mcg PO DAILY Cyanocobalamin [Vitamin B-12] 500 mcg PO DAILY Tamsulosin [Flomax] 0.8 mg PO DAILY Sennosides [Senokot] 8.6 mg PO BID tab HYDROcodone/APAP 5-325MG [Henderson 5-325] 1 tab PO Q4HR PRN PRN Reason: Pain Albuterol Nebulized [Ventolin Nebulized] 2.5 mg INHALATION RT-Q6H PRN PRN Reason: Shortness Of Breath Docusate [Colace] 100 mg PO DAILY Discontinued lisinopriL [Prinivil] 20 mg PO DAILY amLODIPine [Norvasc] 5 mg PO DAILY Furosemide [Lasix] 20 mg PO DAILY Discharge Medication List Tamsulosin [Flomax] 0.8 mg PO DAILY 06/23/21 [History] Rivaroxaban [Xarelto] 15 mg PO HS 09/07/22 [History] Citalopram Hydrobromide [CeleXA] 40 mg PO HS 04/26/23 [History] Sennosides [Senokot] 8.6 mg PO BID tab 10/21/23 [Rx] Albuterol Nebulized [Ventolin Nebulized] 2.5 mg INHALATION RT-Q6H PRN 10/13/24 [History] Betamethasone Valerate [Luxiq 0.1%] 1 applic TOPICAL BID PRN 10/13/24 [History] Cholecalciferol [Vitamin D3 (25 Mcg = 1000 Iu)] 100 mcg PO DAILY 10/13/24 [History] Cyanocobalamin [Vitamin B-12] 500 mcg PO DAILY 10/13/24 [History] Docusate [Colace] 100 mg PO DAILY 10/13/24 [History] HYDROcodone/APAP 5-325MG [Henderson 5-325] 1 tab PO Q4HR PRN 10/13/24 [History] Hydrocortisone Cream [Hydrocortisone 2.5% Cream] 1 applic TOPICAL Q8H PRN 10/13/24 [History] Hydrocortisone Suppository [Anusol-Hc] 25 mg RECTAL Q8H PRN 10/13/24 [History] Metoprolol Succinate (ER) [Toprol XL] 12.5 mg PO DAILY 10/13/24 [History] Naloxone HCl 4 mg NS DIRECTED PRN 10/13/24 [History] Follow up Appointment(s)/Referral(s): Boyd Berger DO [Primary Care Provider] - 1-2 days Abdullahi Chauhan MD [STAFF PHYSICIAN] - 3 Weeks Activity/Diet/Wound Care/Special Instructions: Cancel October [address] Rosado.Please, follow up with your PCP, monitor BP closely. We discontinued lisinopril, lasix, amlodipine because your blood pressure was low. Discuss it with PCP Discharge Disposition: TRANSFER TO SNF/ECF
== END 2024-10-19 17:59 | DRG 729 ==
LOC: EC 15:16 → 3SCARD 17:41 → OBSVTOIN 10-16 13:54
PROVIDERS: ADMIT Student in an Organized Health Care Education/Training Program; ATTEND Student in an Organized Health Care Education/Training Program
DX: N50.89 Other specified disorders of the male genital organs (principal); F03.93 Unspecified dementia, unspecified severity, with mood disturbance; N17.9 Acute kidney failure, unspecified; Z66 Do not resuscitate; E86.0 Dehydration; E78.5 Hyperlipidemia, unspecified; I48.91 Unspecified atrial fibrillation; I12.9 Hypertensive chronic kidney disease with stage 1 through stage 4 chronic kidney disease, or unspecified chronic kidney disease; N18.31 Chronic kidney disease, stage 3a; R55 Syncope and collapse; I95.9 Hypotension, unspecified; R33.9 Retention of urine, unspecified; R32 Unspecified urinary incontinence; N40.0 Benign prostatic hyperplasia without lower urinary tract symptoms; Z79.899 Other long term (current) drug therapy; Z79.01 Long term (current) use of anticoagulants; Z87.891 Personal history of nicotine dependence
CPT/HCPCS: 36415; 76870; 80048; 80053; 81001; 83735; 83880; 84100; 84484; 85025; 87086; 93005; 93975; 96361; 96365; 96367; 96375; 99285